=== PATIENT | female | born 1965 | race Caucasian/White ===

== ENCOUNTER 2021-07-13 08:32 | Outpatient (REF) | payer OTHER, SELFPAY ==
--- NOTE | ~2021-07-13 | MM_ITS ---
EXAMINATION: MM DIAGNOSTIC DIGITAL BREAST TOMOSYNTHESIS, BILATERAL US DIAGNOSTIC ULTRASOUND BREAST, RIGHT CLINICAL INFORMATION: Due for yearly. At time of appointment, patient notes palpable abnormality near right inferior medial inframammary fold, increasing over past year. No erythema or discharge. Prior outside breast imaging currently unavailable. No known family history breast cancer. The lifetime risk of breast cancer based on the Tyrer-Cuzick Model is 5%. COMPARISON: None. Radiology department staff will attempt to retrieve prior outside exams to allow for comparison in an addendum report. TECHNIQUE: Digital breast tomosynthesis is performed in both the craniocaudal and mediolateral oblique views along with computer-aided detection (CAD). Synthesized 2D images are generated from the tomosynthesis. Ultrasound right breast is targeted to the area of clinical concern posterior inferior medial right breast near inframammary fold. Grayscale imaging and color Doppler are performed without and with harmonics. Patient is able to point to area of clinical concern at time of imaging. FINDINGS: There are scattered areas of fibroglandular density (ACR BI-RADS breast composition Category b). Right breast has a superficial circumscribed 1.2 cm mass posterior inferior medial aspect corresponding to the palpable lesion noted by the patient. No associated calcification or spiculation. The remainder the breasts are unremarkable. There is no other significant mass or architectural abnormality. There are scattered bilateral benign vascular calcifications. The axilla and skin contours are unremarkable. Ultrasound right breast demonstrates a hypoechoic oval circumscribed mass posterior inferior medial breast near inframammary fold with overall dimensions 1.3 x 0.9 x 1.3 cm. The lesion contacts the deep dermis. There is a small claw sign suggested and questionable short intradermal stalk. There is no peripheral or internal color flow. No surrounding hyperemia. No edema tracking in soft tissue planes. Results are discussed with the patient at time of visit. The palpable nodule most likely corresponds to a sebaceous cyst. Ultrasound-guided core biopsy may produce reactive parenchymal inflammatory changes if leaking contents post sampling. Therefore, surgical consult is suggested for simple excision. Patient is in agreement. Results and recommendation called to medical nurse (Gladis) for Dr. Kern on 07/13/2021. MM/MM tomosynthesis diagnostic BI IMPRESSION: 1. Right: Probable sebaceous cyst posterior inferior medial right breast 1.3 cm corresponding to palpable concern. 2. Left: No mammographic evidence of malignancy. ASSESSMENT: BI-RADS 4: Suspicious (subcategory 4A: Low suspicion for malignancy) RECOMMENDATION: 1. Surgical consult. 2. Radiology department staff will attempt to retrieve prior outside mammography to allow for comparison in an addendum report. This patient's information was entered into a reminder system with a target due date for their next mammogram.
== END 2021-07-13 08:33 | disposition home or self-care (01) ==
LOC: HO.MAMMO 08:32
PROVIDERS: PCP Student in an Organized Health Care Education/Training Program; Visit Provider Student in an Organized Health Care Education/Training Program
DX: N63.14 Unspecified lump in the right breast, lower inner quadrant (principal)
CPT/HCPCS: 76642; 77062; 77066

== ENCOUNTER 2021-08-02 13:47 | Outpatient (REF) | payer OTHER, SELFPAY ==
--- NOTE | ~2021-08-02 | XR_ITS ---
EXAMINATION: XR CERVICAL SPINE CLINICAL INFORMATION: Neck pain. COMPARISON: None. TECHNIQUE: 3 views of the cervical spine were obtained. FINDINGS: There is mild straightening of the cervical lordosis. The vertebral heights, alignment and disc heights are normal. No visible acute fracture, dislocation or lytic process seen. There is mild ventral spondylosis C6-C7 disc levels. The craniovertebral junction and the C1-C2 alignment is normal. XR/XR cervical spine 3V IMPRESSION: Mild straightening of the cervical lordosis. No visible acute fracture or dislocation seen. There is mild ventral spondylosis C6-C7 disc level.
== END 2021-08-02 13:48 | disposition home or self-care (01) ==
LOC: HO.XRAY 13:47
PROVIDERS: PCP Student in an Organized Health Care Education/Training Program; Visit Provider Student in an Organized Health Care Education/Training Program
DX: M54.2 Cervicalgia (principal); L72.0 Epidermal cyst
CPT/HCPCS: 72040

== ENCOUNTER 2021-08-24 07:42 | Outpatient (REF) | payer OTHER, SELFPAY ==
[2021-08-24 07:50] VITALS: BP 158/81; PULSE 100; RESP 16; TEMP 36.8; O2SAT 99
[2021-08-24 07:51] VITALS: BMI 24.9
[2021-08-24 08:18] VITALS: BP 154/84; PULSE 100; RESP 16; O2SAT 100
--- NOTE | 2021-08-24 08:34 | P.OP_ITS ---
Operative Note Operative Note Date of Service: 08/24/21 Narrative: Preop diagnosis: Epidermal cyst, right breast Postop diagnosis: The same Procedure: Excision of epidermal cyst, right breast under local anesthesia Surgeon: Armando Berger MD The patient is a 56-year-old female who has had a cystic induration on the lower area with occasional swelling and pain. She wanted this removed. She understood the technique of excision under local anesthesia and was aware of the risks, benefits, and alternatives She was brought to the minor procedure room and placed supine. The breast was retracted cephalad exposed the area of the cyst which was in the inferior aspect of the breast. This area was prepped and draped. Lidocaine 1% was used for local anesthesia. I made an elliptical incision on the skin around the cystic induration using a blade 15 and this was carried down through the full-thickness of the skin subcutaneous fat to excise this entire indurated area. The diameter was about 1.5 cm. This was sent as specimen. I closed the incision with full- thickness nylon 3-0 interrupted sutures. Dressings were applied. The procedure was then completed. The patient tolerated procedure well. There were no complication noted. She was given wound care instructions and will be seen in the office for removal sutures.
== END 2021-08-24 07:43 | disposition home or self-care (01) ==
LOC: HO.MS 07:42
PROVIDERS: PCP Student in an Organized Health Care Education/Training Program; Visit Provider Surgery
PROC: (CPT 11402; principal; 2021-08-24 08:00)
DX: L72.0 Epidermal cyst (principal); N64.4 Mastodynia; R22.2 Localized swelling, mass and lump, trunk; N64.51 Induration of breast
CPT/HCPCS: 11402; 88304

== ENCOUNTER → 2021-09-07 10:51 | Outpatient (BNVA) | payer OTHER, SELFPAY | PROVIDERS: PCP Student in an Organized Health Care Education/Training Program; Referring Provider Student in an Organized Health Care Education/Training Program; Visit Provider Surgery ==

== ENCOUNTER 2021-10-17 15:25 | Outpatient (REF) | payer OTHER, SELFPAY ==
--- NOTE | ~2021-10-17 | US_ITS ---
EXAMINATION: US RETROPERITONEAL LIMITED (RENAL ONLY) CLINICAL INFORMATION: CKD. Diabetes. COMPARISON: None TECHNIQUE: Real-time imaging of the kidneys. FINDINGS: RIGHT KIDNEY: 10.6 x 5.1 x 6.3 cm (SAG x AP x TRV). The kidney is normal in size, contour, and echogenicity. Renal cortical thickness is normal. No calculi or focal parenchymal lesions. No hydronephrosis. LEFT KIDNEY: 11.5 x 5.4 x 4.9 cm (SAG x AP x TRV). The kidney is normal in size, contour, and echogenicity. Renal cortical thickness is normal. No calculi or focal parenchymal lesions. No hydronephrosis. US/US renal BI IMPRESSION: Unremarkable renal ultrasound.
== END 2021-10-17 15:26 | disposition home or self-care (01) ==
LOC: HO.HMGCX 15:25
PROVIDERS: PCP Student in an Organized Health Care Education/Training Program; Visit Provider Internal Medicine Hypertension Specialist
DX: E11.22 Type 2 diabetes mellitus with diabetic chronic kidney disease (principal); N18.9 Chronic kidney disease, unspecified
CPT/HCPCS: 76775

== ENCOUNTER → 2022-02-23 07:19 | Outpatient (REF) | payer OTHER, SELFPAY ==
--- NOTE | 2022-02-23 07:23 | CA_ITS ---
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 There is mildly increased left ventricular wall thickness. The left ventricular systolic function is hyperdynamic. The visually estimated ejection fraction is >70%. - There is moderate septal asymmetric hypertrophy. - Normal right ventricular cavity size and systolic function. - The inferior vena cava is collapsed, consistent with reduced intravascular volume. Findings Left Ventricle Normal left ventricular cavity size. There is mildly increased left ventricular wall thickness. The left ventricular systolic function is hyperdynamic. The visually estimated ejection fraction is >70%. There is no evidence of regional wall motion abnormalities. There is dynamic mid left ventricular obstruction. Abnormal diastolic function is noted. Spectral Doppler is indicative of an impaired relaxation filling pattern. E/E prime ratio is between 8 and 15 consistent with indeterminate filling pressures. There is moderate septal asymmetric hypertrophy. Right Ventricle Normal right ventricular cavity size and systolic function. Atria Both atria are normal in size. Aortic Valve Normal aortic valve structure and function. There is no aortic valve stenosis. There is no aortic valve regurgitation. Mitral Valve Normal mitral valve structure and function. There is no mitral valve regurgitation. There is no mitral valve stenosis. Pulmonic Valve Normal pulmonic valve structure and function. Tricuspid Valve Normal tricuspid valve structure and function. There is no tricuspid valve regurgitation. Low right atrial pressure. There is no evidence of pulmonary hypertension. Great Vessels All visible segments of the aorta are normal in size. The visualized portions of the pulmonary artery and branches are normal. Venous The inferior vena cava is collapsed, consistent with reduced intravascular volume. Pericardium/Pleural There is no evidence of pericardial effusion. Prior Study Comparison No prior study available for comparison. Measurements 2D Linear Measurements IVSd: 1.31 0.6-0.9/0.6-1.0 cm LVIDd: 3.46 3.9-5.3/4.2-5.9 cm LVIDd Index: 2.07 2.4-3.2/2.2-3.1 cm/m2 LVIDs: 2.16 2.0-3.6 cm LVPWd: 1.10 0.7-1.1 cm LA Diam: 3.00 2.7-3.8/3.0-4.0 cm LAIDs Index: 1.80 1.5-2.3 cm/m2 LV Mass: 167.27 67-162/88-224 g LV Mass Index: 100.16 43-95/49-115 g/m2 LVOT Diam: 1.90 3.0+(-)1.3 cm 2D Systolic Function EF 4C: 64.10 >55% EF 2C: 62.90 >55% EF BiP: 63.30 >55% Mitral Valve MV Pk E: 0.69 MV PK A: 1.02 MV Decel Time: 187.00 E/A: 0.70 E'Lateral: 7.18 E'Medial: 5.33 E/E' Med: 12.90 E/E' Lat: 9.60 PHT: 55.00 MVA PHT: 4.00 Decel [place]: 3.69 Aortic Valve AoV Pk Bay: 1.84 AoV Mn Bay: 1.33 AoV VTI: 0.39 AoV Pk Grad: 14.00 Aov Mn Grad: 8.00 ROGER Cont.VTI: 2.06 LVOT LVOT Pk Bay: 1.20 LVOT Mn Bay: 0.79 LVOT VTI: 0.28 LVOT Pk Grad: 6.00 LVOT Mn Grad: 3.00 LVOT Diam: 1.90 LVOT Area: 2.84 Diastolic Function MV Pk E: 0.69 MV Pk A: 1.02 E/A: 0.70 E'Medial: 5.33 E/E' Med: 12.90 E' Laterial: 7.18 E/E' Lat: 9.60 Right Ventricle TAPSE (mm): 20.00 TVS' Bay: 13.20 Tricuspid Valve TR Pk Bay: 2.12 TR Pk Grad: 18.00 RA Press: 3.00 RVSP: 21.00 Great Vessels Aorta Sinus of Valsalva: 2.94 2.0-3.[address] [place]: 2.21 1.7-3.4 cm Ao Asc: 2.80 2.1-3.4 cm Updated in Other Vendor System with Status of Final Kirby Coronado MD electronically signed on 02/25/2022 12:26:22 PM with status of Final
== END ==
LOC: HO.CARD 07:19
PROVIDERS: PCP Student in an Organized Health Care Education/Training Program; Visit Provider Pediatrics
DX: R07.89 Other chest pain (principal); I10 Essential (primary) hypertension; E11.9 Type 2 diabetes mellitus without complications
CPT/HCPCS: 93306

== ENCOUNTER → 2022-04-05 10:08 | Outpatient (BNVA) | payer OTHER, SELFPAY | PROVIDERS: PCP Student in an Organized Health Care Education/Training Program; Visit Provider Surgery | DX: M62.08 Separation of muscle (nontraumatic), other site (principal) ==

== ENCOUNTER 2023-03-18 10:37 | Outpatient (REF) | payer OTHER, SELFPAY ==
--- NOTE | ~2023-03-18 | MM_ITS ---
EXAMINATION: MM DIAGNOSTIC DIGITAL BREAST TOMOSYNTHESIS, BILATERAL US DIAGNOSTIC ULTRASOUND BREAST, LEFT CLINICAL INFORMATION: Due for yearly. Recent palpable fullness high left axilla during bout of flu, subsequently resolved. Subsequent excision 08/24/2021 benign lesion posterior medial right breast (epidermal inclusion cyst). The lifetime risk of breast cancer based on the Tyrer-Cuzick Model is 7%. COMPARISON: Mammography: 07/13/2021; outside mammography 11/28 and 08/03/2017 ([place]); targeted right breast ultrasound 07/13/2021. TECHNIQUE: Digital breast tomosynthesis is performed in both the craniocaudal and mediolateral oblique views along with computer-aided detection (CAD). Synthesized 2D images are generated from the tomosynthesis. Ultrasound left axilla raises performed using grayscale imaging and color Doppler without and with harmonics. Patient is able to point to the area of recent and subsequently resolved palpable concern. FINDINGS: There are scattered areas of fibroglandular density (ACR BI-RADS breast composition Category b). There are no significant masses, abnormal calcifications, or other abnormalities. Parenchymal pattern is similar to prior studies. There is no developing density or architectural abnormality. The circumscribed nodule posterior medial inferior right breast is no longer demonstrated consistent with the excision (epidermal inclusion cyst, 08/24/2021). The axilla are unremarkable. No skin thickening or coarsening of the Jose Antonio's ligaments. No significant changes. Ultrasound left axilla demonstrates no cystic or solid mass or architectural abnormality. No lymphadenopathy. No skin thickening or edema tracking in soft tissue planes. No hyperemia. Results are discussed with the patient at time of visit. There is no remaining palpable concern. Patient may return for routine annual screening mammography in one year, or earlier as clinical risk factors warrant. MM/MM tomosynthesis diagnostic BI IMPRESSION: No mammographic evidence of malignancy. ASSESSMENT: BI-RADS 1: Negative RECOMMENDATION: Routine annual mammography screening. This patient's information was entered into a reminder system with a target due date for their next mammogram.
== END 2023-03-18 10:38 | disposition home or self-care (01) ==
LOC: HO.MAMMO 10:37
PROVIDERS: PCP Student in an Organized Health Care Education/Training Program; Visit Provider Family Medicine
DX: R59.0 Localized enlarged lymph nodes (principal)
CPT/HCPCS: 76642; 77062; 77066

== ENCOUNTER 2023-07-03 08:45 | Outpatient (REF) | payer OTHER, SELFPAY ==
[2023-07-03 14:36] LABS: MANUAL DIFF FLAG NO
[2023-07-03 14:38] LABS: Basophils Percent Auto 0.4 % (0-2); Eosinophils Absolute Auto 0.2 X10*3/uL (0.0-0.4); Hematocrit 28.7 % (37.0-47.0); Hemoglobin 9.8 g/dl (12.0-16.0); Imm Gran Abs Auto 0.03 X10*3/uL (0.00-0.03); Imm Gran Pct Auto 0.4 % (0.0-0.4); Lymphocytes Absolute Auto 2.6 X10*3/uL (1.2-4.9); Lymphocytes Percent Auto 34.9 % (20-40); Mean Corpuscular HGB Conc 34.1 g/dl (31.0-35.0); Mean Corpuscular Hemoglobin 27.3 pg (27.0-33.0); Mean Corpuscular Volume 79.9 fL (80.0-98.0); Mean Platelet Volume 10.1 fL (9.4-12.3); Monocytes Absolute Auto 0.3 X10*3/uL (0.1-1.2); Monocytes Percent Auto 4.5 % (2-11); Neutrophils Absolute Auto 4.2 x10*3/uL (2.0-8.3); Neutrophils Percent Auto 56.8 % (45-73); Platelet Count 242 X10*3/uL (160-400); Red Blood Count 3.59 X10*6/uL (4.20-5.50); Red Cell Distribution Width 14.1 % (11.0-16.0); White Blood Count 7.3 X10*3/uL (4.8-10.8)
[2023-07-03 15:14] LABS: Anion Gap 13 (12-20); Blood Urea Nitrogen 50 mg/dL (9-16); Calcium 10.7 mg/dL (8.4-10.2); Carbon Dioxide 25 mmol/L (22-29); Chloride 106 mmol/L (96-108); Estimated Glomerular Filt Rate 30; Glucose Random 207 mg/dL (60-115); Iron 92 mcg/dL (30-160); Percent Iron Saturation 26 % (15-50); Potassium 5.7 mmol/L (3.3-5.1); Sodium 138 mmol/L (135-145); Total Iron Binding Capacity 349 mcg/dL (228-428); Unsaturated Iron Binding 257 ug/dL
[2023-07-03 15:29] LABS: Ferritin 365 ng/mL (10-250)
[2023-07-03 16:07] LABS: Creatinine Urine 77.94 mg/dL; Protein/Creatinine Ratio, Ur 0.35 (<0.2); Total Protein Urine Random 27 mg/dL (<12)
[2023-07-04 10:48] LABS: PTHI 39 pg/mL (16-77)
== END 2023-07-03 08:46 | disposition home or self-care (01) ==
LOC: HO.CHCLDS 08:45
PROVIDERS: Visit Provider Internal Medicine Hypertension Specialist
DX: E11.22 Type 2 diabetes mellitus with diabetic chronic kidney disease (principal); N18.32 Chronic kidney disease, stage 3b
CPT/HCPCS: 36415; 80048; 82728; 83540; 83970; 84156; 85025

== ENCOUNTER 2023-10-16 09:41 | Outpatient (REF) | payer OTHER, SELFPAY ==
[2023-10-16 14:51] LABS: Alanine Aminotransferase 31 U/L (0-31); Albumin Level 4.2 g/dL (3.5-5.0); Alkaline Phosphatase 117 U/L (39-117); Anion Gap 13 (12-20); Aspartate Amino Transferase 32 U/L (5-31); Bilirubin Direct 0.2 mg/dL (0.0-0.5); Bilirubin Total 0.4 mg/dL (0.0-1.0); Blood Urea Nitrogen 53 mg/dL (9-16); Calcium 9.9 mg/dL (8.4-10.2); Carbon Dioxide 26 mmol/L (22-29); Chloride 101 mmol/L (96-108); Cholesterol 183 mg/dL (<200); Estimated Glomerular Filt Rate 22; Glucose Random 356 mg/dL (60-115); HDL Cholesterol 41 mg/dL (>40); LDL Cholesterol Calculated 83 mg/dL (<100); Potassium 4.9 mmol/L (3.3-5.1); Sodium 135 mmol/L (135-145); Total Protein 7.7 g/dL (6.5-8.0); Triglycerides 297 mg/dL (<150)
== END 2023-10-16 09:42 | disposition home or self-care (01) ==
LOC: HO.CHCLDS 09:41
PROVIDERS: Visit Provider Student in an Organized Health Care Education/Training Program
DX: E11.9 Type 2 diabetes mellitus without complications (principal); Z79.4 Long term (current) use of insulin
CPT/HCPCS: 36415; 80048; 80061; 80076

== ENCOUNTER 2023-12-03 16:28 | Outpatient (AMB) | payer OTHER, SELFPAY ==
[2023-12-03 16:30] VITALS: BP 138/62; PULSE 89; O2SAT 99; BMI 24.9
--- NOTE | 2023-12-03 16:30 | HO.NEPHOV ---
HPI HPI Comments History of Present Illness Details 58-year-old woman with a history of CKD in a setting of diabetes mellitus. Started on Farxiga A1C down to 9.3% PFSH Medical History Epidermal cyst Diabetes mellitus Surgical History History of removal of cyst H/O section Family History Family/Other Cancer of unknown origin Paternal Aunt Colon cancer Paternal Aunt Colon cancer Father Liver cancer Social History Alcohol intake: never Patient Tobacco Use Status: Never used Tobacco Vital Signs 12/03/23 16:30 Height 5 ft 4 in Weight 145 lb BMI 24.9 BP 138/62 Blood Pressure Location Rt brachial Position Sitting Pulse 89 Pulse Source Pulse Oximeter Pulse Oximetry (%) 99 Oxygen Delivery Method Room Air Physical Exam Vital Signs: Last Vital Signs Pulse 89 12/03/23 16:30 BP 138/62 12/03/23 16:30 Pulse Ox 99 12/03/23 16:30 Oxygen Delivery Method Room Air 12/03/23 16:30 BMI result Body Mass Index 24.9 Const General: comfortable; No acute distress Orientation/consciousness: patient oriented x3 Eyes General: appearance normal, both eyes and all related structures Visual Valdez: normal visual valdez by confrontation Neck Neck: Yes supple and Yes no JVD Resp Effort & Inspection: normal respiratory effort and respiratory effort not decreased Auscultation: rhonchi Cardio Palpation: no palpable S3 and no palpable S4 Heart sounds: no rubs GI Inspection: Yes normal to inspection Palpation (GI): Soft to palpation Percussion: Yes normal to percussion Auscultation: normal bowel sounds General: Yes no CVA tenderness Back/Spine/Pelvis Back: no CVA tenderness Skin General skin exam: no petechiae and no purpura Neuro General: patient oriented x3 and no focal motor deficits Extrem General: No clubbing and No edema Assessment & Plan Assessment & Plan (1) CKD (chronic kidney disease) stage 4, GFR 15-29 ml/min: Code(s): N18.4 - Chronic kidney disease, stage 4 (severe) Plan 58-year-old man with CKD in a setting of longstanding diabetes mellitus. There has been a bump in serum creatinine. This may be due to hypoperfusion. Decrease Chlorthalidone to 12.5 Goal is to slow the portion disease Recheck renal function in the next few weeks and she will return to the office. If the serum creatinine still elevated we may have to discontinue the diuretics. Continue to avoid nephrotoxic agents including NSAIDs Further workup will be based on the baseline workup. Orders: Orders Electrolytes 4 Weeks N18.4 - Chronic kidney disease, stage 4 (severe) Creatinine 4 Weeks N18.4 - Chronic kidney disease, stage 4 (severe) Blood Urea Nitrogen 4 Weeks N18.4 - Chronic kidney disease, stage 4 (severe) Calcium 4 Weeks N18.4 - Chronic kidney disease, stage 4 (severe) Coding Level of Care Code Est Pt Level 4 (88667) Diagnoses CKD (chronic kidney disease) stage 4, GFR 15-29 ml/min N18.4 Results Reviewed Nephrology Results: Hgb 9.8 g/dl (12.0-16.0) L 07/03/23 WBC 7.3 X10*3/uL (4.8-10.8) 07/03/23 Plt Count 242 X10*3/uL (160-400) 07/03/23 Sodium 135 mmol/L (135-145) 10/16/23 Potassium 4.9 mmol/L (3.3-5.1) 10/16/23 Chloride 101 mmol/L (96-108) 10/16/23 Carbon Dioxide 26 mmol/L (22-29) 10/16/23 BUN 53 mg/dL (9-16) H 10/16/23 Creatinine 2.24 mg/dL (0.5-1.4) H 10/16/23 Calcium 9.9 mg/dL (8.4-10.2) 10/16/23 PTH Intact 39 pg/mL (16-77) 07/03/23 Urine Creatinine 77.94 mg/dL 07/03/23 Protein/Creatinin Ratio 0.35 (<0.2) H 07/03/23 Renal US 10/17/21
== END 2023-12-03 16:49 | disposition home or self-care (01) ==
PROVIDERS: PCP Student in an Organized Health Care Education/Training Program; Visit Provider Internal Medicine Hypertension Specialist
DX: N18.4 Chronic kidney disease, stage 4 (severe) (principal)
CPT/HCPCS: 99214

== ENCOUNTER → 2023-12-03 16:28 | Outpatient (BNVA) | payer OTHER, SELFPAY | PROVIDERS: PCP Student in an Organized Health Care Education/Training Program; Visit Provider Internal Medicine Hypertension Specialist ==

== ENCOUNTER 2024-01-15 08:43 | Outpatient (REF) | payer OTHER, SELFPAY ==
[2024-01-15 14:57] LABS: Estimated Average Glucose 160 mg/dL; Hemoglobin A1c % 7.2 % (<6.0)
[2024-01-15 15:32] LABS: Anion Gap 15 (12-20); Blood Urea Nitrogen 42 mg/dL (9-16); Calcium 9.8 mg/dL (8.4-10.2); Carbon Dioxide 25 mmol/L (22-29); Chloride 105 mmol/L (96-108); Estimated Glomerular Filt Rate 28; Potassium 4.7 mmol/L (3.3-5.1); Sodium 140 mmol/L (135-145)
[2024-01-15 15:41] LABS: Anion Gap 16 (12-20); Blood Urea Nitrogen 42 mg/dL (9-16); Calcium 10.1 mg/dL (8.4-10.2); Carbon Dioxide 25 mmol/L (22-29); Chloride 105 mmol/L (96-108); Estimated Glomerular Filt Rate 27; Glucose Random 120 mg/dL (60-115); Sodium 141 mmol/L (135-145)
== END 2024-01-15 08:44 | disposition home or self-care (01) ==
LOC: HO.CHCLDS 08:43
PROVIDERS: Internal Medicine Hypertension Specialist; Visit Provider Student in an Organized Health Care Education/Training Program
DX: E11.9 Type 2 diabetes mellitus without complications (principal); N18.4 Chronic kidney disease, stage 4 (severe); Z79.4 Long term (current) use of insulin
CPT/HCPCS: 36415; 80048; 80051; 82310; 82565; 83036; 84520

== ENCOUNTER 2024-02-04 16:22 | Outpatient (AMB) | payer OTHER, SELFPAY ==
[2024-02-04 16:25] VITALS: BP 154/70; PULSE 106; O2SAT 99; BMI 24.5
--- NOTE | 2024-02-04 16:25 | HO.NEPHOV ---
HPI HPI Comments History of Present Illness Details 58-year-old woman with a history of CKD in a setting of diabetes mellitus. Tolerating Farxiga A1C down to 9.3% No new issues today PFSH Medical History Epidermal cyst Diabetes mellitus Surgical History History of removal of cyst H/O section Family History Family/Other Cancer of unknown origin Paternal Aunt Colon cancer Paternal Aunt Colon cancer Father Liver cancer Social History Alcohol intake: never Patient Tobacco Use Status: Never used Tobacco Vital Signs 02/04/24 16:25 02/04/24 16:33 Height 5 ft 4 in Weight 143 lb BMI 24.5 BP 154/70 H 138/60 Blood Pressure Location Rt brachial Rt brachial Position Sitting Sitting Pulse 106 H Pulse Source Pulse Oximeter Pulse Oximetry (%) 99 Oxygen Delivery Method Room Air Physical Exam Vital Signs: Last Vital Signs Pulse 106 H 02/04/24 16:25 BP 138/60 02/04/24 16:33 Pulse Ox 99 02/04/24 16:25 Oxygen Delivery Method Room Air 02/04/24 16:25 BMI result Body Mass Index 24.5 Const General: comfortable; No acute distress Orientation/consciousness: patient oriented x3 Eyes General: appearance normal, both eyes and all related structures Visual Valdez: normal visual valdez by confrontation Neck Neck: Yes supple and Yes no JVD Resp Effort & Inspection: normal respiratory effort and respiratory effort not decreased Auscultation: rhonchi Cardio Palpation: no palpable S3 and no palpable S4 Heart sounds: no rubs GI Inspection: Yes normal to inspection Palpation (GI): Soft to palpation Percussion: Yes normal to percussion Auscultation: normal bowel sounds General: Yes no CVA tenderness Back/Spine/Pelvis Back: no CVA tenderness Skin General skin exam: no petechiae and no purpura Neuro General: patient oriented x3 and no focal motor deficits Extrem General: No clubbing and No edema Assessment & Plan Assessment & Plan (1) CKD (chronic kidney disease) stage 4, GFR 15-29 ml/min: Code(s): N18.4 - Chronic kidney disease, stage 4 (severe) Plan 58-year-old man with CKD in a setting of longstanding diabetes mellitus. There has been a bump in serum creatinine. This may be due to hypoperfusion. Creatinine improved after lowering chlorthalidone Keep Chlorthalidone 12.5 Goal is to slow the portion disease Continue to avoid nephrotoxic agents including NSAIDs Orders: Orders Basic Metabolic Panel 4 Months N18.4 - Chronic kidney disease, stage 4 (severe) Creatinine Urine 4 Months N05.9 - Unspecified nephritic syndrome with unspecified morphologic changes, N18.4 - Chronic kidney disease, stage 4 (severe) Complete Blood Count Auto Diff 4 Months N18.30 - Chronic kidney disease, stage 3 unspecified, N18.4 - Chronic kidney disease, stage 4 (severe) Total Protein Urine Random 4 Months N18.4 - Chronic kidney disease, stage 4 (severe) Parathyroid Hormone Intact 4 Months N18.4 - Chronic kidney disease, stage 4 (severe) Coding Level of Care Code Est Pt Level 4 (81312) Diagnoses CKD (chronic kidney disease) stage 4, GFR 15-29 ml/min N18.4 Results Reviewed Nephrology Results: Hgb 9.8 g/dl (12.0-16.0) L 07/03/23 WBC 7.3 X10*3/uL (4.8-10.8) 07/03/23 Plt Count 242 X10*3/uL (160-400) 07/03/23 Sodium 140 mmol/L (135-145) 01/15/24 Potassium 4.7 mmol/L (3.3-5.1) 01/15/24 Chloride 105 mmol/L (96-108) 01/15/24 Carbon Dioxide 25 mmol/L (22-29) 01/15/24 BUN 42 mg/dL (9-16) H 01/15/24 Creatinine 1.85 mg/dL (0.5-1.4) H 01/15/24 Calcium 9.8 mg/dL (8.4-10.2) 01/15/24 PTH Intact 39 pg/mL (16-77) 07/03/23 Urine Creatinine 77.94 mg/dL 07/03/23 Protein/Creatinin Ratio 0.35 (<0.2) H 07/03/23 Renal US 10/17/21
[2024-02-04 16:33] VITALS: BP 138/60
== END 2024-02-04 16:36 | disposition home or self-care (01) ==
PROVIDERS: PCP Student in an Organized Health Care Education/Training Program; Visit Provider Internal Medicine Hypertension Specialist
DX: N18.4 Chronic kidney disease, stage 4 (severe) (principal)
CPT/HCPCS: 99214

== ENCOUNTER → 2024-02-04 16:22 | Outpatient (BNVA) | payer OTHER, SELFPAY | PROVIDERS: PCP Student in an Organized Health Care Education/Training Program; Visit Provider Internal Medicine Hypertension Specialist | DX: N18.4 Chronic kidney disease, stage 4 (severe) (principal) ==

== ENCOUNTER 2024-03-21 08:16 | Outpatient (REF) | payer OTHER, SELFPAY | END 2024-03-21 08:17 | disposition home or self-care (01) | LOC: HO.MAMMO 08:16 | PROVIDERS: PCP Student in an Organized Health Care Education/Training Program; Visit Provider Student in an Organized Health Care Education/Training Program | DX: Z12.31 Encounter for screening mammogram for malignant neoplasm of breast (principal) | CPT/HCPCS: 77063; 77067 ==

== ENCOUNTER → 2024-03-21 08:30 | Outpatient (BNV) | payer OTHER, SELFPAY | PROVIDERS: PCP Student in an Organized Health Care Education/Training Program; Visit Provider Radiology Diagnostic Radiology | DX: Z12.31 Encounter for screening mammogram for malignant neoplasm of breast (principal) | CPT/HCPCS: 77063; 77067 ==

== ENCOUNTER 2024-06-01 16:21 | Outpatient (AMB) | payer OTHER, SELFPAY ==
--- NOTE | 2024-06-01 16:26 | HO.NEPHOV_ITS ---
Vital Signs 06/01/24 16:27 06/01/24 16:36 Height 5 ft 4 in Weight 141 lb BMI 24.2 BP 148/64 H 140/70 H Blood Pressure Location Rt brachial Rt brachial Position Sitting Sitting Pulse 104 H Pulse Source Pulse Oximeter Pulse Oximetry (%) 98 Oxygen Delivery Method Room Air Intake Visit Reasons: May FU/Conf Assessment Analyst Required: No Accompanied by: Spouse Allergies lisinopril Allergy (Severe, Verified 06/01/24 16:30) Hives, itchiness shellfish derived [SHELLFISH DERIVED] Allergy (Unknown, Verified 06/01/24 16:30) HIVES HPI Comments Details: 58-year-old woman with a history of CKD in a setting of diabetes mellitus. Tolerating Farxiga A1C down to 9.3% Mild gluacoma- s/p dilatation. [facility] Medical History Epidermal cyst Diabetes mellitus Surgical History History of removal of cyst H/O section Family History Family/Other Cancer of unknown origin Paternal Aunt Colon cancer Paternal Aunt Colon cancer Father Liver cancer Social History Alcohol intake: never Patient Tobacco Use Status: Never used Tobacco Physical Exam Vital Signs: Last Vital Signs Pulse 104 H 06/01/24 16:27 BP 140/70 H 06/01/24 16:36 Pulse Ox 98 06/01/24 16:27 Oxygen Delivery Method Room Air 06/01/24 16:27 BMI result Body Mass Index 24.2 Neck Neck: Yes supple Resp Auscultation: clear to auscultation bilaterally Cardio Palpation: no palpable S3 Heart sounds: no rubs GI Palpation (GI): Soft to palpation Auscultation: normal bowel sounds Neuro Motor exam (neuro): no asterixis Results Reviewed Nephrology Results: Hgb 9.8 g/dl (12.0-16.0) L 07/03/23 WBC 7.3 X10*3/uL (4.8-10.8) 07/03/23 Plt Count 242 X10*3/uL (160-400) 07/03/23 Sodium 140 mmol/L (135-145) 01/15/24 Potassium 4.7 mmol/L (3.3-5.1) 01/15/24 Chloride 105 mmol/L (96-108) 01/15/24 Carbon Dioxide 25 mmol/L (22-29) 01/15/24 BUN 42 mg/dL (9-16) H 01/15/24 Creatinine 1.85 mg/dL (0.5-1.4) H 01/15/24 Calcium 9.8 mg/dL (8.4-10.2) 01/15/24 PTH Intact 39 pg/mL (16-77) 07/03/23 Urine Creatinine 77.94 mg/dL 07/03/23 Protein/Creatinin Ratio 0.35 (<0.2) H 07/03/23 Assessment & Plan Assessment & Plan (1) CKD (chronic kidney disease) stage 4, GFR 15-29 ml/min: Code(s): N18.4 - Chronic kidney disease, stage 4 (severe) Category: Medical Plan 58-year-old man with CKD in a setting of longstanding diabetes mellitus. And hypertension Creatinine improved after lowering chlorthalidone Keep Chlorthalidone 12.5 Goal is to slow the portion disease Continue to avoid nephrotoxic agents including NSAIDs Repeat labs ordered Orders: Orders Complete Blood Count Auto Diff Today N18.4 - Chronic kidney disease, stage 4 (severe) Creatinine Urine Today N18.4 - Chronic kidney disease, stage 4 (severe) Total Protein Urine Random Today N18.4 - Chronic kidney disease, stage 4 (severe) Parathyroid Hormone Intact Today N18.4 - Chronic kidney disease, stage 4 (severe) Comprehensive Met. Panel Today N18.4 - Chronic kidney disease, stage 4 (severe) Coding Level of Care Code Est Pt Level 4 (46362) Diagnoses CKD (chronic kidney disease) stage 4, GFR 15-29 ml/min N18.4
[2024-06-01 16:27] VITALS: BP 148/64; PULSE 104; O2SAT 98; BMI 24.2
[2024-06-01 16:36] VITALS: BP 140/70
== END 2024-06-01 16:39 | disposition home or self-care (01) ==
PROVIDERS: PCP Student in an Organized Health Care Education/Training Program; Visit Provider Internal Medicine Hypertension Specialist
DX: N18.4 Chronic kidney disease, stage 4 (severe) (principal)
CPT/HCPCS: 99214

== ENCOUNTER → 2024-06-01 16:21 | Outpatient (BNVA) | payer OTHER, SELFPAY | PROVIDERS: PCP Student in an Organized Health Care Education/Training Program; Visit Provider Internal Medicine Hypertension Specialist ==

== ENCOUNTER 2024-10-14 13:31 | Outpatient (REF) | payer OTHER, SELFPAY ==
[2024-10-14 15:16] LABS: Influenza A PCR NEGATIVE (Negative); Influenza B PCR NEGATIVE (Negative); Resp Syncy Virus RNA Qual PCR POSITIVE (Negative); SARS COV2 PCR INHOUSE NEGATIVE (Negative)
== END 2024-10-14 13:32 | disposition home or self-care (01) ==
LOC: HO.CHCLNP 13:31
PROVIDERS: Visit Provider Pediatrics
DX: J06.9 Acute upper respiratory infection, unspecified (principal)
CPT/HCPCS: 0241U

== ENCOUNTER 2024-11-26 09:43 | Outpatient (REF) | payer OTHER, SELFPAY ==
[2024-11-26 14:05] LABS: MANUAL DIFF FLAG NO
[2024-11-26 14:13] LABS: Basophils Percent Auto 0.5 % (0-2); Eosinophils Absolute Auto 0.1 X10*3/uL (0.0-0.4); Eosinophils Percent Auto 2.3 % (0-4); Hematocrit 31.2 % (37.0-47.0); Hemoglobin 10.7 g/dl (12.0-16.0); Imm Gran Abs Auto 0.02 X10*3/uL (0.00-0.03); Imm Gran Pct Auto 0.4 % (0.0-0.4); Lymphocytes Percent Auto 35.2 % (20-40); Mean Corpuscular HGB Conc 34.3 g/dl (31.0-35.0); Mean Corpuscular Hemoglobin 27.1 pg (27.0-33.0); Mean Platelet Volume 9.9 fL (9.4-12.3); Monocytes Absolute Auto 0.3 X10*3/uL (0.1-1.2); Monocytes Percent Auto 5.7 % (2-11); Neutrophils Absolute Auto 3.1 x10*3/uL (2.0-8.3); Neutrophils Percent Auto 55.9 % (45-73); Platelet Count 227 X10*3/uL (160-400); Red Blood Count 3.95 X10*6/uL (4.20-5.50); Red Cell Distribution Width 14.7 % (11.0-16.0); White Blood Count 5.6 X10*3/uL (4.8-10.8)
[2024-11-26 14:19] LABS: Alanine Aminotransferase 35 U/L (0-31); Albumin Level 4.2 g/dL (3.5-5.0); Alkaline Phosphatase 81 U/L (39-117); Anion Gap 10 (12-20); Aspartate Amino Transferase 45 U/L (5-31); Bilirubin Direct 0.2 mg/dL (0.0-0.5); Bilirubin Total 0.5 mg/dL (0.0-1.0); Blood Urea Nitrogen 52 mg/dL (9-16); Calcium 9.8 mg/dL (8.4-10.2); Carbon Dioxide 27 mmol/L (22-29); Chloride 109 mmol/L (96-108); Cholesterol 168 mg/dL (<200); Estimated Glomerular Filt Rate 25; Glucose Random 157 mg/dL (60-115); HDL Cholesterol 44 mg/dL (>40); LDL Cholesterol Calculated 83 mg/dL (<100); Potassium 4.7 mmol/L (3.3-5.1); Sodium 141 mmol/L (135-145); Triglycerides 208 mg/dL (<150)
[2024-11-26 14:32] LABS: Creatinine Urine 49.33 mg/dL; Total Protein Urine Random 10 mg/dL (<12)
[2024-11-26 14:38] LABS: Parathyroid Hormone Intact 82.1 pg/mL (8.7-77.1)
== END 2024-11-26 09:44 | disposition home or self-care (01) ==
LOC: HO.CHCLDS 09:43
PROVIDERS: PCP Student in an Organized Health Care Education/Training Program; Referring Provider Internal Medicine Hypertension Specialist; Visit Provider Student in an Organized Health Care Education/Training Program
DX: N18.4 Chronic kidney disease, stage 4 (severe) (principal); N05.9 Unspecified nephritic syndrome with unspecified morphologic changes; I10 Essential (primary) hypertension
CPT/HCPCS: 36415; 80053; 80061; 82248; 82570; 83970; 84156; 85025

== ENCOUNTER → 2024-11-27 07:44 | Outpatient (REF) | payer OTHER, SELFPAY ==
--- NOTE | 2024-11-27 07:49 | CA_ITS ---
Acquisition Time: 2024-11-27 08:00:04 Total Exercise Time: 00:05:00 Test Indications: CP Medications: SEE H&P Protocol: CHUY Max HR: 148 BPM 91% of Pred: 161 BPM Max BP: 218/60 mmHG Max Work Load: 4.8 METS Exercise Stress Test with exercise 5 mins of Chuy Protocol, held at Stage 1 due to hip issues, able to increase incline to 12% for the last 1 minute, achieving 91% MPHR, with reports of moderate SOB, no chest discomfort, without any arrythmias, with hypertensive response- max BP 218/60. Without EKG changes meeting criteria for ischemia. In recovery, breathing returned to baseline. BP back at 118/60. Test reviewed with Dr. Coronado. Referred By: Faith Kern Electronically Signed By: Ellis Pope
== END ==
LOC: HO.CARD 07:44
PROVIDERS: PCP Student in an Organized Health Care Education/Training Program; Visit Provider Student in an Organized Health Care Education/Training Program
DX: R07.89 Other chest pain (principal)
CPT/HCPCS: 93017

== ENCOUNTER → 2024-11-27 07:49 | Outpatient (BNV) | payer OTHER, SELFPAY | PROVIDERS: PCP Student in an Organized Health Care Education/Training Program | DX: R06.02 Shortness of breath (principal); R03.0 Elevated blood-pressure reading, without diagnosis of hypertension | CPT/HCPCS: 93016; 93018 ==

== ENCOUNTER 2024-11-30 16:04 | Outpatient (AMB) | payer OTHER, SELFPAY ==
--- NOTE | 2024-11-30 16:05 | HO.NEPHOV ---
Vital Signs 11/30/24 16:06 Height 5 ft 4 in Weight 148 lb BMI 25.4 BP 122/68 Blood Pressure Location Rt brachial Position Sitting Pulse 96 Pulse Source Pulse Oximeter Pulse Oximetry (%) 99 Oxygen Delivery Method Room Air Intake Visit Reasons: CKD/ Late appt per pt request Vine Fruit Farming Supervisor Required: No Accompanied by: Self / Same As Patient Allergies lisinopril Allergy (Severe, Verified 11/30/24 16:08) Hives, itchiness shellfish derived [SHELLFISH DERIVED] Allergy (Unknown, Verified 11/30/24 16:08) HIVES Medication List - Last Reconciled 11/30/24 by Paco Burnham MD amlodipine 10 mg PO DAILY aspirin 81 mg PO DAILY atorvastatin 40 mg PO DAILY blood sugar diagnostic (FreeStyle Lite Strips) As directed chlorthalidone 12.5 mg (1/2 x 25 mg) PO DAILY clonidine HCl 0.1 mg PO BID dapagliflozin propanediol (Farxiga) 5 mg PO QAM dorzolamide 2% 1 drp ophthalmic (eye) BID dulaglutide (Trulicity) mg subcut QWEEK fenofibrate nanocrystallized 145 mg PO DAILY hydroxyzine HCl 25 - 50 mg PO DAILY PRN insulin glargine (Lantus Solostar U-100 Insulin) 26 units subcut BEDTIME lancets (TRUEplus Lancets) As directed latanoprost 0.005% 1 drp ophthalmic (eye) BEDTIME valsartan 80 mg PO DAILY HPI Comments Details: 58-year-old woman with a history of CKD in a setting of diabetes mellitus. Tolerating Farxiga A1C down to 9.3% Mild gluacoma- s/p dilatation. 11/30/24 Blood sugar elevated ; Gained 7-8 lbs A1C > 10 Started on Trulicity Underwent stress test- waiting for cardiology appt. [facility] Medical History Epidermal cyst Diabetes mellitus Surgical History History of removal of cyst H/O section Family History Family/Other Cancer of unknown origin Paternal Aunt Colon cancer Paternal Aunt Colon cancer Father Liver cancer Social History Alcohol intake: never Patient Tobacco Use Status: Never used Tobacco Physical Exam Vital Signs: Last Vital Signs Pulse 96 11/30/24 16:06 BP 122/68 11/30/24 16:06 Pulse Ox 99 11/30/24 16:06 Oxygen Delivery Method Room Air 11/30/24 16:06 BMI result Body Mass Index 25.4 Comfortable Neck supple no JVD. Lungs entry equal no rales. Heart S1-S2 heard no gallop or rub. Abdomen soft nontender. Neuro alert awake oriented. No asterixis. Extremities no edema. Results Reviewed Nephrology Results: Hgb 10.7 g/dl (12.0-16.0) L 11/26/24 WBC 5.6 X10*3/uL (4.8-10.8) 11/26/24 Plt Count 227 X10*3/uL (160-400) 11/26/24 Sodium 141 mmol/L (135-145) 11/26/24 Potassium 4.7 mmol/L (3.3-5.1) 11/26/24 Chloride 109 mmol/L (96-108) H 11/26/24 Carbon Dioxide 27 mmol/L (22-29) 11/26/24 BUN 52 mg/dL (9-16) H 11/26/24 Creatinine 2.03 mg/dL (0.5-1.4) H 11/26/24 Calcium 9.8 mg/dL (8.4-10.2) 11/26/24 PTH Intact 82.1 pg/mL (8.7-77.1) H 11/26/24 Urine Creatinine 49.33 mg/dL 11/26/24 Assessment & Plan Assessment & Plan (1) CKD (chronic kidney disease) stage 4, GFR 15-29 ml/min: Code(s): N18.4 - Chronic kidney disease, stage 4 (severe) Category: Medical Plan 58-year-old woman with CKD in a setting of longstanding diabetes mellitus. And hypertension Creatinine close to baseline Keep Chlorthalidone 12.5 Goal is to slow the progression of kidney disease Continue to avoid nephrotoxic agents including NSAIDs Discussed importance of control of glucose BP is well controlled On SGLT-2 inhibitor Mild SHPT No indication for Vit D analog Mild anemia No indication for DANIEL yet Orders: Orders Basic Metabolic Panel 3 Months N18.4 - Chronic kidney disease, stage 4 (severe) Parathyroid Hormone Intact 3 Months N18.4 - Chronic kidney disease, stage 4 (severe) Phosphorus 3 Months N18.4 - Chronic kidney disease, stage 4 (severe) Total Protein Urine Random 3 Months N18.4 - Chronic kidney disease, stage 4 (severe) Creatinine Urine 3 Months N18.4 - Chronic kidney disease, stage 4 (severe) Coding Level of Care Code Est Pt Level 4 (14839) Diagnoses CKD (chronic kidney disease) stage 4, GFR 15-29 ml/min N18.4
[2024-11-30 16:06] VITALS: BP 122/68; PULSE 96; O2SAT 99; BMI 25.4
== END 2024-11-30 16:19 | disposition home or self-care (01) ==
LOC: HO.HKA 16:04
PROVIDERS: PCP Student in an Organized Health Care Education/Training Program; Visit Provider Internal Medicine Hypertension Specialist
DX: I12.9 Hypertensive chronic kidney disease with stage 1 through stage 4 chronic kidney disease, or unspecified chronic kidney disease (principal); E11.22 Type 2 diabetes mellitus with diabetic chronic kidney disease; N18.4 Chronic kidney disease, stage 4 (severe)
CPT/HCPCS: 99214

== ENCOUNTER → 2024-11-30 16:04 | Outpatient (BNVA) | payer OTHER, SELFPAY | PROVIDERS: PCP Student in an Organized Health Care Education/Training Program; Visit Provider Internal Medicine Hypertension Specialist ==

== ENCOUNTER 2025-03-17 08:19 | Outpatient (REF) | payer OTHER, SELFPAY ==
--- OUTSIDE RECORDS SUMMARY | 2025-03-17 08:26 | XMS_ITS | Encounter Summary ---
Author Organization [facility] Address [address] [facility] [address] [place] [address] Phone Care Team Providers Care Cheese Production Supervisor Name Role Phone Faith Kern MD Primary Care Provider [phone] Reason for Visit * Reason Comments Med Refill Encounter Details Date Type Department Care Team (Late st Contact Info) Description 05/02/2024 Refill [facility] [address] [place] [address] Nik Mckeon MD [address] [facility] [address] [place] [address] Social History Tobacco Use Types Packs/Day Years Used Date Smoking Tobacco: Never Smokeless Tobacco: Never Alcohol Use Standard Drinks/Week Comments Not Currently 0 (1 standard drink = 0.6 oz pur e alcohol) Comments Unknown Sex and Gender Information Value Date Recorded Sex Assigned at Not on file Legal Sex Female 11:08 AM EDT Gender Identity Not on file Sexual Orientation Not on file documented as of this encounter Plan of Treatment Not on file documented as of this encounter Visit Diagnoses Not on filedocumented in this encounter Care Teams Cheese Production Supervisor Relationship Specialty Start Date End Date Faith Kern MD [address] [place] [address] PCP - General Family Medicine 07/24/21 documented as of this encounter
--- OUTSIDE RECORDS SUMMARY | 2025-03-17 08:26 | XMS_ITS | Clinical Summary ---
Author Organization [facility] Address [address] [facility] [address] [place] [address] Phone Care Team Providers Care Starch And Prosize Mixer Name Role Phone Faith Kern MD Primary Care Provider [phone] Allergies Active Allergy Reactions Criticality Noted Date Comments Lisinopril Hives 09/25/2021 Shellfish-Derived Products Other (see comments) 09/11/2010 Medications fenofibrate (TRICOR) 145 MG tablet Take 1 tablet by mouth 1 (one) time each day 0 Active chlorthalidone 25 MG tablet Take 12.5 mg by mouth 9 Active levonorgestrel (MIRENA) 20 MCG/24HR IUD 1 each by Intrauterine route Active triamcinolone (KENALOG) 0.1 % cream apply affected area twice a day. 9 Active amLODIPine (NORVASC) 10 MG tablet Take 10 mg by mouth 1 (one) time each day 1 Active Aspirin Low Dose 81 MG EC tablet Take 81 mg by mouth 1 (one) time each day 1 Active atorvastatin (LIPITOR) 40 MG tablet Take 40 mg by mouth 1 (one) time each day 1 Active dorzolamide (TRUSOPT) 2 % ophthalmic solution PLACE ONE DROP IN EACH EYE TWICE DAILY 1 Active hydrOXYzine (ATARAX) 25 MG tablet TAKE 1 OR 2 TABLETS BY MOUTH EVERY DAY NEEDED FOR ANXIETY. 1 Active latanoprost (XALATAN) 0.005 % ophthalmic solution PLACE ONE DROP IN EACH EYE AT BEDTIME 1 Active cetirizine (ZyrTEC) 10 MG tablet Take 10 mg by mouth 1 (one) time each day 3 Active Lantus SoloStar 100 UNIT/ML injection INJECT 16 UNITS SUBCUTANEOUSLY AT BEDTIME 3 Active valsartan (DIOVAN) 80 MG tablet Take 1 tablet (80 mg total) by mouth 1 (one) time each day 30 tablet 11 4 Active cloNIDine (CATAPRES) 0.1 MG tablet TAKE ONE TABLET TWICE DAILY IN THE MORNING AND AT BEDTIME 60 tablet 2 4 Active Active Problems Problem Noted Date Diagnosed Date Acute cough 11/15/2022 07/05/2023 Overview (07/05/2023): Last Assessment & Plan: Likely secondary to acute URI, negative rapid testing. At this moment will rx medication for supportive care and recommend rest. RTC if no improvement of symptoms Disorder of eye due to type 2 diabetes mellitus 2018 Primary open angle glaucoma 05/01/2016 Overview (09/21/2021): Dr. Simms 2016 Presence of intrauterine contraceptive device Overview (09/21/2021): Mirena placed in 2014 Nonproliferative retinopathy due to diabetes lashay litus 01/18/2015 Overview (09/21/2021): Dr. Simms 01/17/15 Diabetes mellitus 02/26/2013 Neuropathy of lower limb 02/26/2013 Helicobacter pylori-associated gastritis 013 Gastritis 01/26/2013 Polyp of colon 01/26/2013 Overview (09/21/2021): Serrated (hyperplastic) polyp @35cm. repeat colonoscopy in 10 years Insomnia 04/14/2012 Microalbuminuria 09/11/2010 Hyperlipidemia 12/25/2007 Dyslipidemia 01/31/2006 Overview (09/21/2021): High triglycerides and LDL Hypertension 01/29/2006 Seborrheic dermatitis 01/29/2006 Immunizations Immunization Administration Dates Next Due HepB-CpG 11/22/2022,09/24/2022 Influenza TIV (IM) 07/22/2018,08/11/2009 Influenza, MDCK, PF, Quadrivalent 08/02/2022, Influenza, Quadrivalent, Preservative Free 07/31 Influenza, Quadrivalent, With Preservative 07/22,07/23/2018 Moderna SARS-COV-2 10/13/2021,12/09/2020, 020 Pneumococcal Conjugate Pcv 20 08/02/2022 Pneumococcal Polysaccharide 12/03/2017, 9 Shingrix 02/16/2022,12/13/2021 Td 04/21/2021 Tdap 03/11/2009 Family History Medical History Relation Comments Cancer Father Diabetes Father Hypertension Mother Kidney disease Mother Relation Status Comments Father Mother Social History Tobacco Use Types Packs/Day Years Used Date Smoking Tobacco: Never Smokeless Tobacco: Never Tobacco Cessation:Counseling Given: No Alcohol Use Standard Drinks/Week Comments Not Currently 0 (1 standard drink = 0.6 oz pur e alcohol) Comments Unknown Sex and Gender Information Value Date Recorded Sex Assigned at Not on file Legal Sex Female 11:08 AM EDT Gender Identity Not on file Sexual Orientation Not on file Last Filed Vital Signs Vital Sign Reading Time Taken Comments Blood Pressure 144/60 07/08/2023 3:49 PM EDT Pulse 98 07/08/2023 3:49 PM EDT Temperature - - Respiratory Rate - - Oxygen Saturation 98% 07/08/2023 3:49 PM EDT Inhaled Oxygen Concentration - - Weight 64.9 kg (143 lb) 07/08/2023 3:49 PM EDT Height - - Body Mass Index - - Plan of Treatment Health Maintenance Due Date Last Done Comments Breast Cancer Screening 1965 Colorectal Cancer Screening: Annual FOBT 2014 Colorectal Cancer Screening: Colonoscopy 2014 Colorectal Cancer Screening: Sigmoidoscopy 2014 Diabetes: Ophthalmology Exam 08/09/2021 03/20/2013, 01/16/2007 Diabetes: Pedal Pulse Checked 08/09/2021 Diabetes: Sensory Foot Exam 08/09/2021 Diabetes: Visual Foot Exam 08/09/2021 Hepatitis B Vaccine (3 of 3 - 19+ 3-dose series) 03/24/2023 11/22/2022, 09/24/2022 Diabetes: Hemoglobin A1C 02/24/2025 025, 04/24/2023, 12/26/2022 Pneumococcal Vaccine: 50+ Years Completed 08/02/2022, 12/03/2017, 03/18/2009 Pneumococcal Vaccine: Peds ( 0 to 5 Years) and At-Risk Patients (6 to 49 Years) Discontinued 08/02/2022, 12/03/2017, 03/18/2009 Influenza Vaccine Completed 07/31/2024, , 08/02/2022, Additional history exists Insurance Care Teams Starch And Prosize Mixer Relationship Specialty Start Date End Date Faith Kern MD [address] [place] [address] PCP - General Family Medicine 07/24/21
--- OUTSIDE RECORDS SUMMARY | 2025-03-17 08:26 | XMS_ITS | Encounter Summary ---
Author Organization [facility] Address [facility] [place] [address] Care Team Providers Care Plug Cutting Machine Operator Name Role Phone Jayashree Monzon MD Primary Care Provider Unava ilable Italo Mar MD Primary Care Provider Selma vailable Jayashree Monzon MD Primary Care Provider Unava ilable Veto Wong MD Primary Care Provider Unavail able Faith Kern Primary Care Provider Unavailabl e Reason for Visit * Reason Onset Date Comments other 05/11/2011 non compliant Encounter Details Date Type Department Care Team Description 05/11/2011 Telephone OBGYN - [address] [address] Sherry Koroma CNM other (non compliant) Social History Tobacco Use Types Packs/Day Years Used Date Smoking Tobacco: Never Alcohol Use Standard Drinks/Week Comments Yes 0 (1 standard drink = 0.6 oz pur e alcohol) occassionally Sex Assigned at Date Recorded Not on file documented as of this encounter Miscellaneous Notes * Telephone Encounter - Sandy Bartlett - 05/11/2011 10:44 AM EDT FYI This woman has failed to respond to our phone calls and standard letter. She needs additional mammogram from her screening mammo done on 04-14-11/ I am advised to ask you to send her a failure to keep referral letter Thank You Sandy Bartlett documented in this encounter Plan of Treatment Not on file documented as of this encounter Visit Diagnoses Not on filedocumented in this encounter Care Teams Plug Cutting Machine Operator Relationship Specialty Start Date End Date Jayashree Monzon MD PCP - General 09/19/10 09/28/12 Italo Mar MD PCP - General Internal Medicine 09/29/12 02/17/13 Jayashree Monzon MD PCP - General Internal Medicine 02/18/13 08/14/18 Veto Wong MD PCP - General Internal Medicine 08/15/18 12/26/23 Faith Kern PCP - General Family Practice 12/27/23 documented as of this encounter
--- OUTSIDE RECORDS SUMMARY | 2025-03-17 08:26 | XMS_ITS | Encounter Summary ---
Author Organization [facility] Address [address] [place] [address] Phone Care Team Providers Care Welder Apprentice Arc Name Role Phone Faith Kern MD Primary Care Provider [phone] Encounter Details Date Type Department Care Team (Late st Contact Info) Description 10/24/2021 Documentation Only [facility] [address] [place] [address] Emir Cisse MD Social History Tobacco Use Types Packs/Day Years Used Date Smoking Tobacco: Never Smokeless Tobacco: Never Alcohol Use Standard Drinks/Week Comments Not Currently 0 (1 standard drink = 0.6 oz pur e alcohol) Comments Unknown Sex and Gender Information Value Date Recorded Sex Assigned at Not on file Legal Sex Female 11:08 AM EDT Gender Identity Not on file Sexual Orientation Not on file COVID-19 Exposure Response Date Recorded In the last month, have you been in contact with someone who was confirmed or suspected to have Coronavirus / COVID-19? No / Unsure 09/26/2021 2:13 PM EST documented as of this encounter Plan of Treatment Not on file documented as of this encounter Visit Diagnoses Not on filedocumented in this encounter Care Teams Welder Apprentice Arc Relationship Specialty Start Date End Date Faith Kern MD [address] [place] [address] PCP - General Family Medicine 07/24/21 documented as of this encounter
--- OUTSIDE RECORDS SUMMARY | 2025-03-17 08:26 | XMS_ITS | Encounter Summary ---
Author Organization [employer] Address [address] [facility] [address] [place] [address] Care Team Providers Care Software Technician Name Role Phone Faith Kern MD Primary Care Provider [phone] Kimberley Guadalupe PharmD Unavailable [phone] Encounter Details Date Type Department Care Team ([facility] st Contact Info) Description 10/16/2023 Telephone [facility] [address] [place] [address] Faith Kern MD [address] [place] [address] Social History Tobacco Use Types Packs/Day Years Used Date Smoking Tobacco: Never Passive Smoke Exposure: Never Smokeless Tobacco: Never Alcohol Use Standard Drinks/Week Comments Never 0 (1 standard drink = 0.6 oz pur e alcohol) Depression Answer Date Recorded Patient Health Questionnaire-9 Score 8 01/21/2023 Housing Stability Answer Date Recorded What is your housing situation today? I have keven bah 08/30/[address] you li ve. Do you have problems with any of the following? None of the above 08/30/2023 Food Insecurity Answer Date Recorded Within the past 12 months, y ou worried that your food would run out before you got money to buy more: Never True 08/30/2023 Within the past 12 months,th e food you bought just didn't last and you didn't have enough money to get more: Never True Transportation Answer Date Recorded In the past 12 months, has l ack of transportation kept you from medical appts, meetings, work or from getting things needed for daily living? No 08/30/2023 Utilities Answer Date Recorded In the past 12 months, has t he electric, gas, oil or water company threatened to shut off services in your home? No 08/30/2023 Depression Answer Date Recorded Patient Health Questionnaire-2 Score 2 01/21/2023 Comments Unknown Sex and Gender Information Value Date Recorded Sex Assigned at Female 09/10/2022 10:17 AM EDT Legal Sex Female 10:17 AM EDT Gender Identity Female 09/10/2022 10:17 AM EDT Sexual Orientation Straight 09/10/2022 10 :17 AM EDT documented as of this encounter Miscellaneous Notes * Telephone Encounter - Pushpa Avery RN - 10/16/2023 6:13 PM EST Routing message to PCP high priority. Critical result line call received at this time from Aislinn at [facility]. Patient glucose 356 as resulted today at 2pm. Fasting duration is not known prior to lab draw. Please update PCP and follow with patient as indicated. * Telephone Encounter - Amina Mars LPN - 10/16/2023 2:51 PM EST Critical result line call received at this time from Aislinn at [facility] Chem [facility]. Patient glucose 356 as resulted today at 2pm. Fasting duration is not known prior to lab draw. Please update PCP and follow with patient as indicated. documented in this encounter Plan of Treatment Upcoming Encounters Date Type Department Care Team (Late st Contact Info) Description 05/04/2025 8:30 AM EDT Office Visit [facility] [address] [place] [address] Faith Kern MD [address] [facility] [place] [address] 08/16/2025 3:00 PM EDT Medication Management [facility] [address] [place] [address] Kimberley Guadalupe PharmD [address] [place] [address] documented as of this encounter Goals Goal Patient Goal Type Associated Problems Recent Progress Patient-Stated? Author Blood Pressure < 140/90 Blood Pressure 140/70(2024 9:52 AM EDT) No Wesley Altman, PharmStephanie Hemoglobin A1c < 7 Result Component 7.1( 3:13 PM EDT) No Wesley Altman PharmD documented as of this encounter Visit Diagnoses Not on filedocumented in this encounter Additional Health Concerns Assessment Noted Time PHQ-9 Depression Total Score: 8 01/22/20 23 9:32 AM EDT documented as of this encounter Care Teams Software Technician Relationship Specialty Start Date End Date Faith Kern MD [address] [place] [address] PCP - General Family Medicine 01/15/20 Kimberley Guadalupe PharmD [address] [place] [address] Pharmacist Internal Medicine 01/11/25 documented as of this encounter
--- OUTSIDE RECORDS SUMMARY | 2025-03-17 08:27 | XMS_ITS | Encounter Summary ---
Author Organization [facility] Address [address] [place] [address] Care Team Providers Care Starch Factory Laborer Name Role Phone Jayashree Monzon MD Primary Care Provider Veto Dobson MD Primary Care Provider Unavail able Faith Kern Primary Care Provider Unavailabl e Encounter Details Date Type Department Care Team Description 12/27/2017 Transfer Records Medical Records [address] [place] [address] Social History Tobacco Use Types Packs/Day Years Used Date Smoking Tobacco: Never Smokeless Tobacco: Never Alcohol Use Standard Drinks/Week Comments Yes 0 (1 standard drink = 0.6 oz pur e alcohol) 1 drink per yr Sex Assigned at Date Recorded Not on file documented as of this encounter Plan of Treatment Not on file documented as of this encounter Visit Diagnoses Not on filedocumented in this encounter Care Teams Starch Factory Laborer Relationship Specialty Start Date End Date Jayashree Monzon MD PCP - General Internal Medicine 02/18/13 08/14/18 Veto Wong MD PCP - General Internal Medicine 08/15/18 12/26/23 Faith Kern PCP - General Family Practice 12/27/23 documented as of this encounter
--- OUTSIDE RECORDS SUMMARY | 2025-03-17 08:27 | XMS_ITS | Encounter Summary ---
Author Organization [employer] Address [address] [facility] [address] [place] [address] Care Team Providers Care On Site Soil Evaluator Name Role Phone Faith Kern MD Primary Care Provider [phone] Kimberley Guadalupe PharmD Unavailable [phone] Reason for Visit * Reason Comments Med Refill Encounter Details Date Type Department Care Team ([facility] Contact Info) Description 11/25/[address] [facility] [address] [place], [place] [id number] Faith Kern MD [address] [place], [place] [id number] Social History Tobacco Use Types Packs/Day Years [...] Orientation Straight 09/10/2022 10 :17 AM EDT COVID-19 Exposure Response Date Recorded In the last 10 days, have yo u been in contact with someone who was confirmed or suspected to have Coronavirus/COVID-19? No / Unsure 11/22/2022 12:02 PM EST documented as of this encounter Plan of Treatment Upcoming Encounters Date Type Department Care Team ([facility] Contact Info) Description 05/04/2025 8:30 AM EDT Office Visit [facility] [address] [place] [address] Faith Kern MD [address] [place] [address] 08/16/2025 3:00 PM EDT Medication Management [facility] [address] [place] [address] Kimberley Guadalupe PharmD [address] [place] [address] documented as of this encounter Goals Goal Patient Goal Type Associated Problems Recent Progress Patient-Stated? Author Blood Pressure < 140/90 Blood Pressure 140/70(2024 9:52 AM EDT) No Wesley Altman PharmD Hemoglobin A1c < 7 Result Component 7.1( 3:13 PM EDT) No Wesley Altman PharmD documented as of this encounter Visit Diagnoses Not on filedocumented in this encounter Care Teams On Site Soil Evaluator Relationship Specialty Start Date End Date Faith Kern MD [address] [place] [address] PCP - General Family Medicine 01/15/20 Kimberley Guadalupe PharmD [address] [place] [address] Pharmacist Internal Medicine 01/11/25 documented as of this encounter
--- OUTSIDE RECORDS SUMMARY | 2025-03-17 08:27 | XMS_ITS | Encounter Summary ---
Author Organization [employer] Address [address] [facility] 7t [place] [address] Care Team Providers Care Spray Painter Helper Name Role Phone Faith Kern MD Primary Care Provider [phone] Kimberley Guadalupe PharmD Unavailable [phone] Reason for Visit * Reason Comments Med Refill Encounter Details Date Type Department Care Team ([facility] Contact Info) Description 03/17/2025 Refill [facility] MED & PEDS [address] [place], [place] [id number] Faith Kern MD [address] [place] [address] Social History Tobacco Use Types Packs/Day Years Used Date Smoking Tobacco: Never Passive Smoke Exposure: Never Smokeless Tobacco: Never Alcohol Use Standard Drinks/Week Comments Never 0 (1 standard drink = 0.6 oz pur e alcohol) Depression Answer Date Recorded Patient Health Questionnaire-9 Score 8 11/26/2024 Patient Health Questionnaire-9 Score 8 11/26/2024 Last PHQ-9: Questionnaire Data Not on file 0 11/26/2024 Housing Stability Answer Date Recorded What is your housing situation today? I have keven bah 05/13/[address] you li ve. Do you have problems with any of the following? None of the above 05/13/2024 Food Insecurity Answer Date Recorded Within the past 12 months, y ou worried that your food would run out before you got money to buy more: Never True 05/13/2024 Within the past 12 months,th e food you bought just didn't last and you didn't have enough money to get more: Never True 01/2024 Transportation Answer Date Recorded In the past 12 months, has l ack of transportation kept you from medical appts, meetings, work or from getting things needed for daily living? No 05/13/2024 Utilities Answer Date Recorded In the past 12 months, has t he electric, gas, oil or water company threatened to shut off services in your home? No 05/13/2024 Depression Answer Date Recorded Patient Health Questionnaire-2 Score 1 11/26/2024 Internet Access Answer Date Recorded Internet Access Q1 Yes 07/13/2024 Internet Access Q2 Not on file 07/13/2024 Comments No Sex and Gender Information Value Date Recorded Sex Assigned at Female 09/10/2022 10:17 AM EDT Legal Sex Female 10:17 AM EDT Gender Identity Female 09/10/2022 10:17 AM EDT Sexual Orientation Straight 09/10/2022 10 :17 AM EDT documented as of this encounter Plan of Treatment Upcoming Encounters Date Type Department Care Team (Late st Contact Info) Description 05/04/2025 8:30 AM EDT Office Visit [facility] MED & PEDS [address] [place] [address] Faith Kern MD [address] [place] [address] 08/16/2025 3:00 PM EDT Medication Management [facility] MED & PEDS [address] [place] [address] Kimberley Guadalupe PharmD [address] [place] [address] documented as of this encounter Goals Goal Patient Goal Type Associated Problems Recent Progress Patient-Stated? Author Blood Pressure < 140/90 Blood Pressure 140/70(2024 9:52 AM EDT) No Wesley Altman, PharmD Hemoglobin A1c < 7 Result Component 7.1( 3:13 PM EDT) No Wesley Altman, PharmD documented as of this encounter Visit Diagnoses Not on filedocumented in this encounter Additional Health Concerns Assessment Noted Time PHQ-9 Depression Total Score: 8 11/26/19 25 9:20 AM EST documented as of this encounter Care Teams Spray Painter Helper Relationship Specialty Start Date End Date Faith Kern MD [address] [place] [address] PCP - General Family Medicine 01/15/20 Kimberley Guadalupe PharmD [address] [place] [address] Pharmacist Internal Medicine 01/11/25 documented as of this encounter
--- OUTSIDE RECORDS SUMMARY | 2025-03-17 08:27 | XMS_ITS | Encounter Summary ---
Author Organization [facility] Address [facility] [place] [address] Care Team Providers Care Machine Trimmer Name Role Phone Jayashree Monzon MD Primary Care Provider Veto Dobson MD Primary Care Provider Unavail able Faith Kern Primary Care Provider Unavailabl e Reason for Visit * Reason Onset Date Comments My Chart Appointment 04/29/2015 Encounter Details Date Type Department Care Team Description 04/29/2015 Telephone Adult Medicine [address] [address] Jayashree Monzon MD My Chart Appointment Social History Tobacco Use Types Packs/Day Years Used Date Smoking Tobacco: Never Smokeless Tobacco: Never Alcohol Use Standard Drinks/Week Comments Yes 0 (1 standard drink = 0.6 oz pur e alcohol) 1 drink per yr Sex Assigned at Date Recorded Not on file documented as of this encounter Miscellaneous Notes * Telephone Encounter - Sea Gil L.P.N. - 05/01/2015 2:55 PM EDT Telephone Information: Called patient left message for patient to call triage nurse * Telephone Encounter - Sea AguilarP.NGeorgiana - 04/29/2015 1:40 PM EDT Called and left a message on her phone to call triage nurse Will send a message via MY CHART Her appointment needs to be triaged * Telephone Encounter - Tamra Hanks - 04/29/2015 11:11 AM EDT Patient has scheduled a visit through My Chart. Please call patient to triage for appropriateness. Date appointment is booked: Appointment scheduled with Stephen Dugan Reason for appointment: upper stomach discomfort and fluttering documented in this encounter Plan of Treatment Not on file documented as of this encounter Visit Diagnoses Not on filedocumented in this encounter Care Teams Machine Trimmer Relationship Specialty Start Date End Date Jayashree Monzon MD PCP - General Internal Medicine 02/18/13 08/14/18 Veto Wong MD PCP - General Internal Medicine 08/15/18 12/26/23 Faith Kern PCP - General Family Practice 12/27/23 documented as of this encounter
--- OUTSIDE RECORDS SUMMARY | 2025-03-17 08:27 | XMS_ITS | Encounter Summary ---
Author Organization [employer] Address [address] [facility] 7t [place] [address] Care Team Providers Care Laboratory Associate Name Role Phone Faith Kern MD Primary Care Provider [phone] Kimberley Guadalupe PharmD Unavailable Reason for Visit * Reason Comments Med Refill Encounter Details Date Type Department Care Team ([facility] st Contact Info) Description 03/03/2024 Refill [facility] MED & PEDS [address] [place], [place] [phone] Faith Kern MD [address] [place] [address] Social History Tobacco Use Types Packs/Day Years [...] Patient Health Questionnaire-2 Score 2 01/21/2023 Comments No Sex and Gender Information Value [...] Description 05/04/2025 8:30 AM EDT Office Visit [facility] MED & PEDS [address] [place] [address] Faith Kern MD [address] [place] [address] 08/16/2025 3:00 PM EDT Medication Management [facility] MED & PEDS [address] [place] [address] Kimberley Guadalupe PharmD [address] [place] [address] documented as of this encounter Goals Goal [...] documented as of this encounter Care Teams Laboratory Associate Relationship Specialty Start Date End Date Faith Kern MD [address] [place] [address] PCP - General Family Medicine 01/15/20 Kimberley Guadalupe, Rakesh [address] [place] [phone] Pharmacist Internal Medicine 01/11/25 documented as of this encounter
--- OUTSIDE RECORDS SUMMARY | 2025-03-17 08:27 | XMS_ITS | Encounter Summary ---
Author Organization [facility] Address [facility] [place] [address] Care Team Providers Care Train Control Technician Name Role Phone Jayashree Monzon MD Primary Care Provider Veto Dobson MD Primary Care Provider Unavail able Faith Kern Primary Care Provider Unavailabl e Encounter Details Date Type Department Care Team Description 07/11/2017 Refill Adult Medicine [address] [address] Jayashree Monzon MD Social History Tobacco Use Types Packs/Day [...] on filedocumented in this encounter Care Teams Train Control Technician Relationship Specialty Start Date End Date Jayashree Monzon MD PCP - General Internal Medicine 02/18/13 08/14/18 Veto Wong MD PCP - General Internal Medicine 08/15/18 12/26/23 Faith Kern PCP - General Family Practice 12/27/23 documented as of this encounter
--- OUTSIDE RECORDS SUMMARY | 2025-03-17 08:27 | XMS_ITS | Encounter Summary ---
Author Organization [employer] Address [address] [facility] 7t [place] [address] Care Team Providers Care Water Conservationist Name Role Phone Faith Kern MD Primary Care Provider [phone] Kimberley Guadalupe PharmD Unavailable [phone] Reason for Referral * Social Care Application (Routine) - Closed Specialty Diagnoses / Procedures Referred By Contac t Referred To Contact Diagnoses Diabetes mellitus due to underlying condition with hyperosmolarity without coma, without long-term current use of insulin (CMS/HCC) Faith Kern MD [address] [place] [address] Phone: tel: fax: Eliana Flores [address] [place] [address] fax: Referral ID Status Reason Start Date Expiration Date V isits Requested Visits Authorized [id number] Closed Specialty Services Required 01/16/2023 07/15/2023 1 1 Encounter Details Date Type Department Care Team (Late st Contact Info) Description 01/16/2023 Orders Only [facility] MED & PEDS [address] [place], [place] [phone] Faith Kern MD [address] [place] [address] Diabetes mellitus due to underlying condition with hyperosmolarity without coma, without long-term current use of insulin (CMS/HCC) (Primary Dx) Social History Tobacco Use Types Packs/Day Years [...] Description 05/04/2025 8:30 AM EDT Office Visit [facility] MED & PEDS [address] [place] [address] Faith Kern MD [address] [place] [address] 08/16/2025 3:00 PM EDT Medication Management [facility] MED & PEDS [address] [place] [address] Kimberley Guadalupe PharmD [address] [place] [address] Scheduled Referrals Name Type Priority Associated Diagnoses Orde r Schedule Referral to Diabetes Prevention Program Outpatient Referral Routine Diabetes mellitus due to underlying condition with hyperosmolarity without coma, without long-term current use of insulin (CMS/HCC) Ordered: 01/16/2023 documented as of this encounter Goals Goal Patient Goal Type Associated Problems Recent Progress Patient-Stated? Author Blood Pressure < 140/90 Blood Pressure 140/70(2024 9:52 AM EDT) No eWsley Altman, PharmD Hemoglobin A1c < 7 Result Component 7.1( 3:13 PM EDT) No Wesley Altman, PharmD documented as of this encounter Visit Diagnoses Diagnosis Diabetes mellitus due to underlying condition with hyperosmolarity without coma, without long-term current use of insulin (CMS/HCC)- Primary documented in this encounter Care Teams Water Conservationist Relationship Specialty Start Date End Date Faith Kern MD [address] [place] [address] PCP - General Family Medicine 01/15/20 Kimberley Guadalupe, Rakesh [address] [place] [address] Pharmacist Internal Medicine 01/11/25 documented as of this encounter
--- OUTSIDE RECORDS SUMMARY | 2025-03-17 08:27 | XMS_ITS | Encounter Summary ---
Author Organization [facility] Address [address] [place] [address] Care Team Providers Care Traffic Control Officer Name Role Phone Jayashree Monzon MD Primary Care Provider Veto Dobson MD Primary Care Provider Unavail able Faith Kern Primary Care Provider Unavailabl e Reason for Visit * Reason Onset Date Comments Pre-visit Diabetes Lab Adult Medicine 09/07/2013 Encounter Details Date Type Department Care Team Description 09/07/2013 Telephone Adult Medicine [address] [address] Jayashree Monzon MD Pre-visit Diabetes Lab Adult Medicine Social History Tobacco Use Types Packs/Day Years Used Date Smoking Tobacco: Never Smokeless Tobacco: Never Alcohol Use Standard Drinks/Week Comments Yes 0 (1 standard drink = 0.6 oz pur e alcohol) 1 drink per yr Sex Assigned at Date Recorded Not on file documented as of this encounter Miscellaneous Notes * Telephone Encounter - Abeba Wade M.A. - 09/07/2013 9:16 AM EDT A message was left on the patients voice mail to return call to [facility]. If patient calls back, please instruct the patient to have their diabetes lab work completed at least 3 days prior to their upcoming appointment in Adult Medicine on 09/14/13 at 10:00 am with . Let the patient know our lab is open on the weekends in the [place] office only. The patient does not need to be fasting to complete the lab work. documented in this encounter Plan of Treatment Not on file documented as of this encounter Visit Diagnoses Not on filedocumented in this encounter Care Teams Traffic Control Officer Relationship Specialty Start Date End Date Jayashree Monzon MD PCP - General Internal Medicine 02/18/13 08/14/18 Veto Wong MD PCP - General Internal Medicine 08/15/18 12/26/23 Faith Kern PCP - General Family Practice 12/27/23 documented as of this encounter
--- OUTSIDE RECORDS SUMMARY | 2025-03-17 08:27 | XMS_ITS | Encounter Summary ---
Author Organization [facility] Address [address] [place] [address] Care Team Providers Care Cyber Incident Responder Name Role Phone Faith Kern Primary Care Provider Unavailabl e Encounter Details Date Type Department Care Team Description 12/27/2023 Old Records [facility] [address] [id number] Armand Max DPM [address] [address] Social History Tobacco Use Types Packs/Day Years [...] on filedocumented in this encounter Care Teams Cyber Incident Responder Relationship Specialty Start Date End Date Faith Kern PCP - General Family Practice 12/27/23 documented as of this encounter
--- OUTSIDE RECORDS SUMMARY | 2025-03-17 08:27 | XMS_ITS | Encounter Summary ---
Author Organization [email or web address] Address [address] [facility] [address] [place] [address] Care Team Providers Care Afternoon Babysitter Name Role Phone Faith Kern MD Primary Care Provider [phone] Kimberley Guadalupe PharmD Unavailable [phone] Reason for Visit * Reason Onset Date Comments Med Refill 03/11/2025 Encounter Details Date Type Department Care Team (Late st Contact Info) Description 03/11/2025 Refill [facility] MED & PEDS [address] [place] [address] Faith Kern MD [address] [place] [address] Social History Tobacco Use Types Packs/Day Years [...] Description 05/04/2025 8:30 AM EDT Office Visit [facility] MED & PEDS [address] [place] [address] Faith Kern MD [address] [place] [address] 08/16/2025 3:00 PM EDT Medication Management [facility] MED & PEDS [address] [place] [address] Kimberley Guadalupe PharmD [address] [place] [address] documented as of this encounter Goals Goal [...] Time PHQ-9 Depression Total Score: 8 11/26/19 9:20 AM EST documented as of this encounter Care Teams Afternoon Babysitter Relationship Specialty Start Date End Date Faith Kern MD [address] [place] [address] PCP - General Family Medicine 01/15/20 Kimberley Guadalupe PharmD [address] [place] [address] Pharmacist Internal Medicine 01/11/25 documented as of this encounter
--- OUTSIDE RECORDS SUMMARY | 2025-03-17 08:27 | XMS_ITS | Encounter Summary ---
Author Organization [facility] Address [facility] [place] [address] Care Team Providers Care Absorption And Adsorption Engineer Name Role Phone Jayashree Monzon MD Primary Care Provider Veto Dobson MD Primary Care Provider Unavail able Faith Kern Primary Care Provider Unavailabl e Encounter Details Date Type Department Care Team Description 07/03/2016 SOLID WASTE DISPOSAL MANAGER/[facility] Report Medical Records [address] [place] [address] Abstract, Provider Social History Tobacco Use Types Packs/Day Years [...] on filedocumented in this encounter Care Teams Absorption And Adsorption Engineer Relationship Specialty Start Date End Date Jayashree Monzon MD PCP - General Internal Medicine 02/18/13 08/14/18 Veto Wong MD PCP - General Internal Medicine 08/15/18 12/26/23 Faith Kern PCP - General Family Practice 12/27/23 documented as of this encounter
--- OUTSIDE RECORDS SUMMARY | 2025-03-17 08:27 | XMS_ITS | Clinical Summary ---
Author Organization [employer] Address [address] [facility] [address] [place] [address] Care Team Providers Care American Studies Professor Name Role Phone Faith Kern MD Primary Care Provider [phone] Kimberley Guadalupe PharmD Unavailable [phone] Allergies Active Allergy Reactions Criticality Noted Date Comments Lisinopril Itching Low 11/15/2022 hives Shellfish-Derived Products Hives Low 3 Medications valsartan (Diovan) 80 MG tablet TAKE ONE TABLET DAILY 022 Active cloNIDine (Catapres) 0.1 MG tablet TAKE ONE TABLET BY MOUTH TWICE DAILY TWICE DAILY IN THE MORNING AND AT BEDTIME 022 Active dorzolamide (Trusopt) 2 % ophthalmic solution PLACE ONE DROP IN EACH EYE TWICE DAILY Active latanoprost (Xalatan) 0.005 % ophthalmic solution PLACE ONE DROP IN EACH EYE AT BEDTIME 022 Active hydrOXYzine HCl (Atarax) 25 MG tabletIndicati ons:Hypertensi on, unspecified type TAKE 1 OR 2 TABLETS BY MOUTH EVERY DAY NEEDED FOR ANXIETY. 60 tablet 3 023 Active Blood Glucose Monitoring Suppl (FreeStyle glucose monitoring) kitIndications :Type 2 diabetes mellitus without complication, with long-term current use of insulin ([facility]) Check sugars BID 1 each 023 Active FREESTYLE LITE test strip 1 each by Other route 3 times daily. 100 each 11 024 Active acetaminophen (Tylenol 8 Hour) 650 MG ER tablet TAKE ONE TABLET EVERY 8 HOURS NEEDED 60 tablet 5 Active cetirizine (ZyrTEC) 10 MG tablet TAKE ONE TABLET BY MOUTH EVERY MORNING 90 tablet 1 Active Farxiga 5 MG TAKE ONE TABLET EVERY MORNING BEFORE BREAKFAST 90 tablet 3 Active fluticasone (Flonase) 50 MCG/ACT nasal spray Administer 1 spray into each nostril Once per day. 16 g 3 Active Lantus SoloStar 100 UNIT/ML penIndications :Type 2 Diabetes Mellitus INJECT 30 UNITS SUBCUTANEOUSLY AT BEDTIME 3 mL 3 Active brimonidine (AlphaGAN) 0.2 % ophthalmic solution PLACE ONE DROP IN THE RIGHT EYE TWICE DAILY Active chlorthalidone (Hygroton) 25 MG tablet Take 0.5 tablets (12.5 mg) by mouth in the morning. Active atorvastatin (Lipitor) 80 MG tablet Take 1 tablet (80 mg) by mouth Once per day. 30 tablet Active Lancets 33G misc Test blood sugar up to 3 times daily 100 each Active Aspirin Adult Low Strength 81 MG EC tablet TAKE ONE TABLET EVERY MORNING 30 tablet 5 Active amLODIPine (Norvasc) 10 MG tablet TAKE ONE TABLET EVERY MORNING 30 tablet 5 Active Trulicity 0.75 MG/0.5ML solution auto-injector INJECT ONE PEN (=0.75MG) SUBCUTANEOUSLY ONCE A WEEK DIRECTED 2 mL Active insulin pen needle (Pentips) 32G x 4 mm misc USE ONE EVERY DAY. 100 each Active Pentips 32G X 4 MM misc USE ONE EVERY DAY. 100 each 3 024 2024 Discontinued(R eotiffanie (will not trigger notification to Pharmacy)) Aspirin Adult Low Strength 81 MG EC tablet TAKE ONE TABLET EVERY MORNING 30 tablet 5 024 2024 Discontinued amLODIPine (Norvasc) 10 MG tablet TAKE ONE TABLET EVERY MORNING 30 tablet 5 2024 Discontinued Dulaglutide (Trulicity) 0.75 MG/0.5ML solution auto-injector Inject 0.75 mg under the skin 1 (one) time per week. 2 mL 2 025 2024 Discontinued Continuous Glucose Dispensing Operator (FreeStyle Nash 2 [place]) device Scan sensor every 8 hours 1 each 025 2024 Discontinued(M ed list cleanup (will not trigger notification to Pharmacy)) Continuous Glucose Sensor (FreeStyle Nash 2 Sensor) misc Apply 1 sensor every 14 days 2 each 2 025 2024 Discontinued(M ed list cleanup (will not trigger notification to Pharmacy)) Hospital, Clinic, or Other Facility Administered Medication Ordered Dose Route Frequency Start Date End Date Status triamcinolone acetonide (Kenalog-40) injection 40 mgIndications:Adhesive capsulitis of right shoulder 40 mg IX Once 02/25/2025 02/25/2025 Ended lidocaine (Xylocaine) 1 % injection 20 mgIndications:Adhesive capsulitis of right shoulder 20 mg IJ Once 02/25/2025 02/25/2025 Ended triamcinolone acetonide (Kenalog-40) injection 40 mgIndications:Adhesive capsulitis of right shoulder 40 mg IX Once 02/25/2025 02/25/2025 Ended Active Problems Problem Noted Date Diagnosed Date Women's annual routine gynecological examination 05/05/2024 Assessment & Plan (05/05/2024 9:39 AM EDT): Last LMP 3 yrs ago, desires removal of IUD, removed Pap smear UTD next in 2026 Prev. PAP: Date Value Ref Range Status 03/06/2022 NONE GIVEN Final Mammo UTD Rash in adult 01/13/2024 Assessment & Plan (01/14/2024 2:28 AM EST): Patient reported rash in bilateral arms. She has itchiness in arms. She was prescribed zyrtec, elimite, and prednisone for rash. I gave patient a scabies test to do at home. Hidradenitis axillaris 12/03/2023 Bronchitis 02/19/2023 Assessment & Plan (02/19/2023 2:52 PM EDT): Patient with bronchitis symptoms, will proceed with steroids, antibiotics and expectorant. RTC if symptoms worsen, will send out SARS-CoV-2. Acute cough 11/15/2022 Assessment & Plan (11/15/2022 5:18 PM EST): Likely secondary to acute URI, negative rapid testing. At this moment will rx medication for supportive care and recommend rest. RTC if no improvement of symptoms Primary open angle glaucoma 05/01/2016 Overview (11/19/2022): Dr. Simms 2015 Dr. Simms 2016 Nonproliferative diabetic retinopathy 01/18/2015 Overview (11/19/2022): Dr. Simms 01/17/15 Dr. Simms 01/17/15 Neuropathy of lower extremity 02/26/2013 Diabetes mellitus 02/26/2013 Helicobacter pylori gastritis 02/09/2013 Polyp of colon 01/26/2013 Overview (11/15/2022): Serrated (hyperplastic) polyp @35cm. repeat colonoscopy in 10 years Serrated (hyperplastic) polyp @35cm. repeat colonoscopy in 10 years Insomnia 04/14/2012 Microalbuminuria 09/11/2010 Hyperlipidemia 12/25/2007 Dyslipidemia 01/31/2006 Overview (11/15/2022): High triglycerides and LDL High triglycerides and LDL Seborrheic dermatitis 01/29/2006 Hypertension 01/29/2006 Chronic liver disease 01/29/2006 Overview (11/15/2022): IMO update Resolved Problems Problem Noted Date Diagnosed Date Resolved Date Lymphadenopathy, axillary 02/19/2023 Assessment & Plan (02/19/2023 2:53 PM EDT): Left axilla with 2.0 cm x 1.7 cm induration, will send for US. Could be reactive LN. IUD (intrauterine device) in place 06/11/2015 05/05/2024 Overview (11/15/2022): Mirena placed in 2015 Mirena placed in 2015 Encounters Date Type Department Care Team Description 03/17/2025 Refill [facility] [address] [facility] [place] [phone] Faith Kern MD 03/11/2025 Refill [facility] [address] [facility] [place]-[phone] Faith Kenr MD 03/04/2025 Refill [facility] [address] [facility] [place]-[phone] Faith Kern MD 02/27/2025 Refill [facility] [address] [facility] [place]-[phone] Faith Kern MD 02/25/2025 9:45 AM EDT Procedure Visit [facility] [address] [facility] [place] [phone] Faith Kern MD Adhesive capsulitis of right shoulder (Primary Dx); Diabetes mellitus due to underlying condition without complication, with long-term current use of insulin ([facility]) 02/25/2025 Travel 02/22/2025 Travel 01/26/2025 Telephone [facility] [address] [facility] [place] [phone] Kimberley Guadalupe, PharmStephanie 01/11/2025 Travel 12/21/2024 Telephone [facility] [address] [place] [address] Faith Kern MD from Last 3 Months Immunizations Name Administration Dates Next Due HepB-CpG 11/22/2022,09/24/2022 Influenza Injectable Quadriv alant Preservative Free IIV4 MDCK 08/08/2023,08/02/2022,08/10/2020 Influenza injectable quadriv alent IIV4 with preservative 07/22/2019,07/23/2018 Influenza injectable quadriv alent preservative free 07/31/2021 Influenza, IIV3, injectable 07/22/2018, 9 Influenza, seasonal, injecta ble, preservative free 07/31/2024 Moderna Covid-19 Vaccine 12+ 10/13/2021,12/09/19 21,11/09/2020 Pneumococcal Conjugate PCV 20 08/02/2022 Pneumococcal Polysaccharide PPSV23 12/03/2017, TD (adult), 2 Lf tetanus tox oid, preservative free, adsorbed 04/21/2021 Tdap 03/11/2009 Zoster, Recombinant 02/16/2022,12/13/2021 Family History Medical History Relation Name Comments Diabetes Father Lymphoma Father Cataracts Mother Glaucoma Mother Hypertension Mother Kidney failure Mother Relation Name Status Comments Father Mother Social History Tobacco Use Types Packs/Day Years Used Date Smoking Tobacco: Never Passive Smoke Exposure: Never Smokeless Tobacco: Never Tobacco Cessation:Counseling Given: Not Answered Alcohol Use Standard Drinks/Week Comments Never 0 [...] Orientation Straight 09/10/2022 10 :17 AM EDT Last Filed Vital Signs Vital Sign Reading Time Taken Comments Blood Pressure 140/70 02/25/2025 9:52 AM EDT Pulse 92 02/25/2025 9:52 AM EDT Temperature 36.7 ??C (98.1 ??F) 02/25/2025 9:52 AM ED T Respiratory Rate 18 02/25/2025 9:52 AM EDT Oxygen Saturation 97% 11/26/2024 8:44 AM EST Inhaled Oxygen Concentration - - Weight 64.9 kg (143 lb) 02/25/2025 9:52 AM EDT Height 162.6 cm (5' 4 ) 02/25/2025 9:52 AM EDT Body Mass Index 24.55 02/25/2025 9:52 AM EDT Plan of Treatment Upcoming Encounters Date Type Department Care Team (Late st Contact Info) Description 05/04/2025 8:30 AM EDT Office Visit [facility] [address] [facility] [place] [address] Faith Kern MD [address] [facility] [place] [address] 08/16/2025 3:00 PM EDT Medication Management [facility] [address] [place] [address] Kimberley Guadalupe, PharmD [address] [place] [address] Health Maintenance Due Date Last Done Comments CT Colonography 1965 Colonoscopy 1965 FIT 1965 FOBT 1965 HIV Screening 1965 Sigmoidoscopy 1965 Eye Exam 1975 Alcohol/Substance Use Screening 1977 Hepatitis C Screening 1983 Hepatitis A Vaccines (1 of 2 - Risk 2-dose series) 1984 Diabetes: Foot Exam 06/21/2024 06/21/2023, COVID-19 Vaccine ( season) 2024 10/13/2021, 12/09/2020, 11/09/2020 Pap Smear 03/06/2025 03/06/2022 Mammogram 03/21/2025 03/21/2024, 05/0 06/2023, 03/18/2023, Additional history exists SDOH Screening 05/13/2025 05/13/2024 Diabetes: Hemoglobin A1C 05/24/2025 025, 11/26/2024, 05/22/2024, Additional history exists Depression Screening 11/26/2025 11/26/2024, 11/26/19 25 Lipid Panel 11/26/2025 11/26/2024, 12/0 04/2023, 01/21/2023, Additional history exists Tobacco Screening 02/25/2026 02/25/2025 Colorectal Cancer Screening 01/18/2027 FIT DNA/Cologuard 01/18/2027 01/19/2024 Cervical Cancer Screening 03/06/2027 HPV/Cotest 03/06/2027 03/06/2022 DTaP/Tdap/Td Vaccines (3 - Td or Tdap) 04/21/2031 04/21/2021, 03/11/2009 RSV Patients and Patients Aged 60 years or older (1 - 1-dose 75+ series) 2040 Zoster Vaccines Completed 02/16/2022, 12/13/2021 Pneumococcal Vaccine: 50+ Years Completed 08/02/2022, 12/03/2017, 03/18/2009 Hepatitis B Vaccines Completed 11/22/2022, 09/24/20 Influenza Vaccine Completed 07/31/2024, , 08/02/2022, Additional history exists HIB Vaccines Aged Out No longer eligi ble based on patient's age to complete this topic HPV Vaccines Aged Out No longer eligi ble based on patient's age to complete this topic IPV Vaccines Aged Out No longer eligi ble based on patient's age to complete this topic Meningococcal Vaccine Aged Out No ebenezer adelina eligible based on patient's age to complete this topic RSV under 20 months Aged Out No longe r eligible based on patient's age to complete this topic Rotavirus Vaccines Aged Out No longer eligible based on patient's age to complete this topic Goals Goal Patient Goal Type Associated Problems Recent Progress Patient-Stated? Author Blood Pressure < 140/90 Blood Pressure 140/70(2024 9:52 AM EDT) No Wesley Altman, Rakesh Hemoglobin A1c < 7 Result Component 7.1( 3:13 PM EDT) No Wesley Altman PharmD Procedures Procedure Name Priority Date/Time Associated Diagnosis Comments POCT GLUCOSE Routine 02/25/2025 9:54 AM EDT Diabetes mellitus due to underlying condition without complication, with long-term current use of insulin ([facility]) DC ARTHROCENTESIS ASPIR&/INJ MAJOR JT/BURSA W/O US Routine 02/25/2025 9:46 AM EDT Adhesive capsulitis of right shoulder POCT GLYCATED HEMOGLOBIN, TOTAL Routine 02/22/2025 3:13 PM EDT Diabetes mellitus due to underlying condition without complication, with long-term current use of insulin ([facility]) LIPID PANEL, STANDARD Routine 11/26/2024 9:47 AM EST Primary hypertension BI MAMMOGRAM SCREENING TOMOSYNTHESIS BILATERAL Routine 03/21/2024 8:30 AM EDT LAB COLOGUARD?? COLON CANCER SCREEN Routine 01/19/2024 4:30 PM EDT Encounter for screening for malignant neoplasm of colon THINPREP IMAGING PAP AND HPV MRNA E6/E7 WITH REFLEX TO HPV 16,18/45 Routine 03/06/2022 9:04 AM EDT from Last 3 Months or Most Recently Relevant to Health Maintenance Results * POCT Glucose (02/25/2025 9:54 AM EDT) Glucose Blood, POC 192 60 - 200 mg/dL QC Media Lot # [id number] Lot# Expiration Date Blood Capillary blood specimen / Unknown 02/25/2025 9:54 AM EDT us Faith Kern MD POINT OF CARE TEST ENTER/EDIT OR DERABLES Final Result * DC ARTHROCENTESIS ASPIR&/INJ MAJOR JT/BURSA W/O US (02/25/2025 9:46 AM EDT) Narrative Faith Kern MD - 02/25/2025 9:46 AM EDT Faith Kern MD ? 02/25/2025 10:14 AM Arthrocentesis Date/Time: 02/25/2025 9:46 AM Performed by: Faith Kern MD Authorized by: Faith Kern MD ?? Consent: ??Consent obtained: ??Verbal and written ??Consent given by: ??Patient ??Risks, benefits, and alternatives were discussed: yes ?Risks discussed: ??Pain ??Alternatives discussed: ??Referral [place] protocol: ??Procedure explained and questions answered to patient or proxy's satisfaction: yes ?Relevant documents present and verified: yes ?Test results available: yes ?Imaging studies available: yes ?Required blood products, implants, devices, and special equipment available: yes ?Site/side marked: yes ?Immediately prior to procedure, a time out was called: yes ?Patient identity confirmed: ??Verbally with patient Location: ??Location: ??Shoulder ??Shoulder: ??R glenohumeral Anesthesia: ??Anesthesia method: ??Topical application Procedure details: ??Preparation: Patient was prepped and draped in usual sterile fashion ?Needle gauge: ??22 G ??Ultrasound guidance: no ?Approach: ??Posterior ??Steroid injected: yes ?Specimen collected: no ?? Post-procedure details: ??Dressing: ??Adhesive bandage ??Procedure completion: ??Tolerated Faith Kern MD IN CLINIC/BEDSIDE ORDERABLES Fin al Result * (ABNORMAL) POCT A1C (02/22/2025 3:13 PM EDT) Hemoglobin A1C 7.1(A) 4.0 - 6.0 % QC Media Lot # [id number] Lot# Expiration Date Blood 02/22/2025 3:13 PM EDT Faith Kern MD POINT OF CARE TEST ENTER/EDIT OR DERABLES Final Result * (ABNORMAL) Lipid Panel, Standard (11/26/2024 9:47 AM EST) Triglycerides 208(H) <150 mg/dL [facility] Comment:Desirable Triglyceri de: less than 150 mg/dLBorderline High Triglyceride 150-199 mg/dLHigh Triglyceride: 200-499 mg/dLVery High Triglyceride: greater than or equal to 5OO mg/dL Cholesterol 168 <200 mg/dL [facility] Comment:Desirable Cholestero l: less than 200 mg/dLBorderline High Cholesterol: 200-239 mg/dLHigh Cholesterol: greater than 239 mg/dL LDL Cholesterol Calculated 83 <100 mg/dL [facility] Comment:Desirable LDL: less than 100 mg/dLNear Optimal/Above Optimal LDL: 110- 129 mg/dLBorderline High LDL: 130-159 mg/dLHigh LDL: 160-189 mg/dLVery High LDL: greater than or equal to 190 mg/dL HDL Cholesterol 44 >40 mg/dL [facility] Comment:Desirable HDL: great er than 40 mg/dL Note: This HDL assay may give artificially low results in patients with liver disease. Blood Venous blood specimen / Unknown 11/26/2024 9:47 AM EST 11/26/2024 2:00 PM EST us Faith Kern MD LAB BLOOD ORDERABLES Final Resul t [facility] [address] [place] [address] [phone] * BI Mammogram Screening Tomosynthesis Bilateral (03/21/2024 8:30 AM EDT) Anatomical Region Laterality Modality Breast Bilateral Mammography 03/21/2024 8:30 AM EDT Narrative 04/06/2024 1:04 PM EDT ? [facility] ? [address] ?[place] [address] ? Mammography Report ? Signed ? Patient: Virgil,Susannah ?MR#: [id number] ?? 1 ? : 1965 ?Acct:[id number] ? Age/Sex: 58 / F ?ADM Date: 03/21/24 ? Loc: HO.MAMMO ? Attending Dr: Faith Roche Concha MD ? Ordering Physician: Concha,Faith Roche MD ?Results: 1Negati ?? ve ? Date of Service: 03/21/24 ?Follow Up: 1 Year From Orig ?? inal Mammogram ? Procedure(s): MM tomosynthesis screening BI ?? Accession Number(s): [id number] ? cc: Faith Kern MD ? EXAMINATION: ?? MM SCREENING DIGITAL BREAST TOMOSYNTHESIS, BILATERAL ? CLINICAL INFORMATION: ? Screening. Asymptomatic. ? COMPARISON: ?? Mammography: This study is compared with prior exams dating back to ?? 2019. ? TECHNIQUE: ?? Digital breast tomosynthesis is performed in both the craniocaudal and ?? mediolateral oblique views along with computer-aided detection (CAD). ?? Synthesized 2D images are generated from the tomosynthesis. ? FINDINGS: ?? The breasts are heterogeneously dense, which may obscure small masses ?? (ACR BI-RADS breast composition Category c). ? There are no significant masses, abnormal calcifications, or other ?? abnormalities. ? MM/MM tomosynthesis screening BI ?? IMPRESSION: ?? No mammographic evidence of malignancy. ? ASSESSMENT: ? BI-RADS BI-RADS 1 - Negative ? RECOMMENDATION: ?? Routine annual mammography screening. ? 1 year F/U ? This examination should not preclude the clinical evaluation of a ?? suspicious palpable abnormality. ? This patient's information was entered into a reminder system with a ?? target due date for their next mammogram. ? Dictated By: ?Nolvia David MD ? Signed By: ?<Electronically signed by Nolvia David MD in OV> ? 04/06/24 1259 ? DD/ 0830 ? TD/TT: ? Ceo And Founder: ? Procedure Note Tayla, Image - 04/06/2024 [facility] [address] [place] [address] [place] [address] Mammography Report Signed Patient: Kate HermanMarzenaAreli#: [id number] 1 : 1965Acct:[id number] Age/Sex: 58 / FADM Date: 03/21/24 Loc: [facility] Attending Dr: Faith Kern MD Ordering Physician: Faith Kernesults: 1Negati ve Date of Service: 03/21/24Follow Up: 1 Year From Orig ina Mammogram Procedure(s): MM tomosynthesis screening BI Accession Number(s): [id number] cc: Faith Kern MD EXAMINATION: MM SCREENING DIGITAL BREAST TOMOSYNTHESIS, BILATERAL CLINICAL INFORMATION: Screening. Asymptomatic. COMPARISON: Mammography: This study is compared with prior exams dating back to 2019. TECHNIQUE: Digital breast tomosynthesis is performed in both the craniocaudal and mediolateral oblique views along with computer-aided detection (CAD). Synthesized 2D images are generated from the tomosynthesis. FINDINGS: The breasts are heterogeneously dense, which may obscure small masses (ACR BI-RADS breast composition Category c). There are no significant masses, abnormal calcifications, or other abnormalities. MM/MM tomosynthesis screening BI IMPRESSION: No mammographic evidence of malignancy. ASSESSMENT: BI-RADS BI-RADS 1 - Negative RECOMMENDATION: Routine annual mammography screening. 1 year F/U This examination should not preclude the clinical evaluation of a suspicious palpable abnormality. This patient's information was entered into a reminder system with a target due date for their next mammogram. Dictated By: Nolvia David MD Signed By: <Electronically signed by Nolvia David MD in OV> 04/06/24 1259 DD/ 0830 TD/TT: Ceo And Founder: Faith Kern MD IMG BI PROCEDURES Final Result * Cologuard?? colon cancer screening (01/19/2024 4:30 PM EDT) Cologuard Result Negative Negative 01/26/20 8:56 AM EDT [facility] (CLIA #:[id number]) Comment: NEGATIVE TEST RESULT. A negative Cologuard result indicates a low likelihood that a colorectal cancer (CRC) or advanced adenoma (adenomatous polyps with more advanced pre-malignant features) ??is present. The chance that a person with a negative Cologuard test has a colorectal cancer is less than 1 in 1500 (negative predictive value >99.9%) or has an ??advanced adenoma is less than ??5.3% (negative predictive value 94.7%). These data are based on a prospective cross-sectional study of 10,000 individuals at average risk for colorectal cancer who were screened with both Cologuard and colonoscopy. (Joel Jacobo al, N Engl J Med 2014;370(14):1286- 1297) The normal value (reference range) for this assay is negative. COLOGUARD RE-SCREENING RECOMMENDATION: Periodic colorectal cancer screening is an important part of preventive healthcare for asymptomatic individuals at average risk for colorectal cancer. ??Following a negative Cologuard result, the [place] [employer] and U.S. Multi-Society Task Force screening guidelines recommend a Cologuard re-screening interval of 3 years. References: [place] [employer] Guideline for Colorectal Cancer Screening: https://www.cancer.org/cancer/bhsfu-lwhdno-lmpbje/eponemnan-tfpppvjeh-negatvj/ac s-rec ommendations.html.; Misael DK, Bola NOBLE, Peace EvansK, Colorectal Cancer Screening: Recommendations for Physicians and Patients from the U.S. Multi-Society Task Force on Colorectal Cancer Screening , Am J Gastroenterology 2017; 112:1054-3300. TEST DESCRIPTION: Composite algorithmic analysis of stool DNA-biomarkers with hemoglobin immunoassay. ?? Quantitative values of individual biomarkers are not reportable and are not associated with individual biomarker result reference ranges. Cologuard is intended for colorectal cancer screening of adults of either sex, 45 years or older, who are at average-risk for colorectal cancer (CRC). Cologuard has been approved for use by the U.S. FDA. The performance of Cologuard was established in a cross sectional study of average-risk adults aged 50-84. Cologuard performance in patients ages 45 to 49 years was estimated by sub-group analysis of near-age groups. Colonoscopies performed for a positive result may find as the most clinically significant lesion: colorectal cancer [4.0%], advanced adenoma (including sessile serrated polyps greater than or equal to 1cm diameter) [20%] or non- advanced adenoma [31%]; or no colorectal neoplasia [45%]. These estimates are derived from a prospective cross-sectional screening study of 10,000 individuals at average risk for colorectal cancer who were screened with both Cologuard and colonoscopy. (Joel Jacobo al, N Engl J Med 2014;370(14):6501-6804.) Cologuard may produce a false negative or false positive result (no colorectal cancer or precancerous polyp present at colonoscopy follow up). A negative Cologuard test result does not guarantee the absence of CRC or advanced adenoma (pre-cancer). The current Cologuard screening interval is every 3 years. ([place] [employer] and U.S. Multi-Society Task Force). Cologuard performance data in a 10,000 patient pivotal study using colonoscopy as the reference method can be accessed at the following location: www.[employer]/results. Additional description of the Cologuard test process, warnings and precautions can be found at www.cologuard.com. Stool specimen (specimen) 01/19/2024 4:30 PM EDT 01/22/2024 2:01 PM EDT Faith Kern MD LAB MOLECULAR DIAGNOSTICS ORDERA BLES Final Result [facility] (CLIA #:[id number]) [address] [place] [place] [address], * THINPREP TIS PAP AND HPV mRNA E6/E7 WITH REFLEX TO HPV 16,18/45 (03/06/2022 9:04 AM EDT) Clinical Information: [facility] COMMENT SEE COMMENT [facility] Comment: EXPLANATORY NOTE: ? The Pap is a screening test for cervical cancer. It is ?? not a diagnostic test and is subject to false negative ?? and false positive results. It is most reliable when a ?? satisfactory sample, regularly obtained, is submitted ?? with relevant clinical findings and history, and when ?? the Pap result is evaluated along with historic and ?? current clinical information. ?? COMMENT: This Pap test has been evaluated with computer assisted technology. [facility] Trucking Manager: SEE COMMENT [facility] Comment: ED, CT(ASCP) CT screening location: ?? [facility] ?? [address] [place] [address] ?? [place] [address] HPV nRNA E6/E7 Not Detected Not Detected [facility] Comment: Methodology: Intervention Nurse-Mediated Amplification This assay detects E6/E7 viral messenger RNA (mRNA) from 14 high-risk HPV types (16,18,31,33,35,39,45,51,52,56,58,59,66,68). ? The analytical performance characteristics of this assay have been determined by [employer]. The modifications have not been cleared or approved by the FDA. This assay has been validated pursuant to the CLIA regulations and is used for clinical purposes. ?? For additional information, please refer to http://education.[employer]/faq/UJV148z4 (This link if provided for information/ educational purposes only.) Interpretation/Re sult: Negative for intraepithelial lesion or malignancy. [facility] LMP: [facility] Prev. BX: NONE [facility]IVEN [facility] Prev. PAP: NONE [facility]IV[facility] SOURCE: None given [facility] Statement Of Adequacy: SEE COMMENT [facility] Comment: Satisfactory for evaluation. Endocervical/transformation zone component present. 03/06/2022 9:04 AM EDT Salima Smith CNM LAB PATHOLOGY ORDERABLES Final Result Performing Organization Address City/State/[facility] Co de Phone Number [facility] [address] from Last 3 Months or Most Recently Relevant to Health Maintenance Insurance [facility] , [address] [place] [address] Care Teams American Studies Professor Relationship Specialty Start Date End Date Faith Kern MD [address] [place] [address] PCP - General Family Medicine 01/15/20 Kimberley Guadalupe PharmD [address] [place] [id number] Pharmacist Internal Medicine 01/11/25
--- OUTSIDE RECORDS SUMMARY | 2025-03-17 08:27 | XMS_ITS | Encounter Summary ---
Author Organization [facility] Address [facility] [place] [address] Care Team Providers Care Grounds Worker Name Role Phone Veto Wong MD Primary Care Provider Unavail able Faith Kern Primary Care Provider Unavailabl e Encounter Details Date Type Department Care Team Description 11/01/2018 Hospital Medical Records [address] [place] [id number] [address] Social History Tobacco Use Types Packs/Day Years [...] on filedocumented in this encounter Care Teams Grounds Worker Relationship Specialty Start Date End Date Veto Wong MD PCP - General Internal Medicine 08/15/18 12/26/23 Faith Kern PCP - General Family Practice 12/27/23 documented as of this encounter
--- OUTSIDE RECORDS SUMMARY | 2025-03-17 08:27 | XMS_ITS | Encounter Summary ---
Author Organization [facility] Address [address] [place] [address] Care Team Providers Care Leather Dresser Name Role Phone Jayashree Monzon MD Primary Care Provider Veto Dobson MD Primary Care Provider Unavail able Faith Kern Primary Care Provider Unavailabl e Encounter Details Date Type Department Care Team Description 12/03/2017 Hospital Medical Records [address] [place] [address] Abstract, Provider Social History Tobacco Use Types [...] on filedocumented in this encounter Care Teams Leather Dresser Relationship Specialty Start Date End Date Jayashree Monzon MD PCP - General Internal Medicine 02/18/13 08/14/18 Veto Wong MD PCP - General Internal Medicine 08/15/18 12/26/23 Faith Kern PCP - General Family Practice 12/27/23 documented as of this encounter
--- OUTSIDE RECORDS SUMMARY | 2025-03-17 08:27 | XMS_ITS | Encounter Summary ---
Author Organization [facility] Address [facility] [place] [address] Care Team Providers Care Material Flow Engineer Name Role Phone Jayashree Monzon MD Primary Care Provider Veto Dobson MD Primary Care Provider Unavail able Faith Kern Primary Care Provider Unavailabl e Encounter Details Date Type Department Care Team Description 02/22/2016 Refill Adult Medicine [address] [address] Jayashree Monzon MD Social History Tobacco Use [...] on filedocumented in this encounter Care Teams Material Flow Engineer Relationship Specialty Start Date End Date Jayashree Monzon MD PCP - General Internal Medicine 02/18/13 08/14/18 Veto Wong MD PCP - General Internal Medicine 08/15/18 12/26/23 Faith Kern PCP - General Family Practice 12/27/23 documented as of this encounter
--- OUTSIDE RECORDS SUMMARY | 2025-03-17 08:27 | XMS_ITS | Clinical Summary ---
Author Organization [facility] Address [address] [place] [address] Care Team Providers Care Lodging House Keeper Name Role Phone ConchaEdeFaith Primary Care Provider Unavailabl e Allergies Active Allergy Reactions Severity Noted Date Comments Lisinopril 06/10/2024 Shellfish-Derived Products Hives/Urticaria 11/2009 Medications Medication Sig Dispensed Refills Start Date End Date Status FREESTYLE LANCETS Misc Apply 1 Each topically 4 times daily. 400 Each 1 02/23/2016 Active Blood Glucose Calibration (FREESTYLE CONTROL SOLUTION) Liquid 1 Drop by In Vitro route See Admin Instructions. Use with each new bottle of strips 1 Each 4 02/23/2016 Active FREESTYLE TEST STRIPS strip Use to test blood sugar 3 times daily. 100 Each 3 07/30/2018 Active Insulin Glargine (LANTUS SOLOSTAR) 100 UNIT/ML Solution Pen-injector INJECT 45 UNITS DIRECTED AT BEDTIME. 15 Device 5 09/23/2018 Active chlorthalidone (HYGROTEN) 25 MG tablet Take 1 Tab by mouth daily for 360 days. 30 Tab 11 01/15/2019 Active Fenofibrate 145 MG Tab TAKE 1 TABLET BY MOUTH EVERY DAY 30 Tab 0 12/24/2019 Active amlodipine (NORVASC) 5 MG tablet TAKE 1 TABLET BY MOUTH EVERY DAY 30 Tab 0 12/24/2019 Active LOSARTAN POTASSIUM OR Take by mouth. 0 Active aspirin 81 MG chewable tablet Take 1 Tablet by mouth daily. 0 Active CLONIDINE-CHLORTHALI DONE OR Take by mouth. 0 Active Cetirizine HCl 10 MG Cap Take by mouth. 0 Active Dapagliflozin Propanediol 10 MG Tab Take by mouth. 0 Active clotrimazole (LOTRIMIN) 1 % cream Apply to skin and toenails daily for 12 weeks 45 g 3 06/10/2024 Active Active Problems Patient Care Coordination No te Formatting of this note is d ifferent from the original. Checking Your Blood Sugars Please check your blood sugars every day. Please check your sugars at the following times of day: before breakfast Your Blood Sugar Goals Pre Meal: 90-130 2 hours after meals: 110-160 Bedtime: 110-150 Use the Results ?? Bring your glucometer to every appointment ?? Write your fingerstick blood sugars down on a log sheet or record book. Bring them to your appointment ?? Look for patterns in the numbers. The results help you and your provider make decisions about your diabetes treatment plan. Your Results and your Goals Your Result / Date of Completion Your Goal / How Often to Assess Component Value Date HGBA1C 8.9 07/30/2015 Less than 7%--- 2-4 times per year BP Readings from Last 1 Encounters: 02/22/16 140/62 Less than 130/80--- once per year Component Value Date LDL 140 12/30/2012 LDL less than 100--- once per year Component Value Date MALBUR 958.6 07/30/2015 Less than 30--- once per year Wt Readings from Last 1 Encounters: 02/22/16 144 lb (65.318 kg) Your goal weight by next visit: 130 --- reassess 2-4 times a year Health Maintenance Due Topic Date Due ? ? Baseline Health Exam 40-64 10/18/2013 ? ? Diabetes: Annual Foot Exam 02/26/2014 ? ? Diabetes: Annual Care Plan 02/26/2014 ? ? Mammogram 10/01/2014 ? ? Diabetes: Blood Sugar Control Test (Hgba1c) 11/29/2015 ? ? Diabetes: Annual Eye Exam 01/15/2016 Your Action Plan Check blood glucose as directed and write down all results. Continue to work on weight loss with a goal of losing 2-4 pounds per month Increase physical activity Contact me if you experience any barriers to care such as inability to purchase your medication, difficulty getting to your appointments or difficulty understanding your care plan When to Call your Healthcare Provider If your blood sugar falls below 70 and you do not know why or you become unconscious If you are sick and unable to take liquids because or nausea or vomiting If you have a fever over 101 If your blood sugar is 300 or higher on greater than 3 separate occasions during the same week If you are just unsure what to do Educational Resources [place] Diabetes Association (www.diabetes.org) Centers for Disease Control and Prevention (www.cdc.gov/diabetes) This care plan was created in collaboration with Susannah Herman on 02/22/2016 Problem Noted Date Uncontrolled type 2 diabetes mellitus with microalbuminuria, with long-term current use of insulin 2018 Uncontrolled type 2 diabetes with eye co mplications 2018 Primary open angle glaucoma 05/01/2016 Overview: Dr. 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 Simms 01/17/15 Neuropathy of both feet 02/26/2013 Diabetes mellitus with neuropathy 2012 Helicobacter pylori gastritis 02/09/2013 Colon polyp 01/26/2013 Overview: Serrated (hyperplastic) polyp @35cm. repeat colonoscopy in 10 years Gastritis 01/26/2013 Insomnia 04/14/2012 Microalbuminuria 09/11/2010 Hyperlipidemia LDL goal <70 12/25/2007 Mixed dyslipidemia 01/31/2006 Overview: High triglycerides and LDL fatty liver, elevated ast/alt, neg hep p francesca 2000 01/29/2006 Overview: IMO update Seborrheic dermatitis 01/29/2006 hypertension 01/29/2006 Resolved Problems Problem Noted Date Resolved Date diabetes mellitus Type 2 with renal manifestatio ns 01/29/2006 2018 Immunizations Name Administration Dates Next Due Influenza (> 6 Months) 07/22/2018,08/11/2009 Pneumoccoccal(Adult) Polysaccharide PPSV23 03/18 Tdap 03/11/2009 Family History Medical History Relation Name Comments Cancer, Other Father lymph nodes Diabetes Father Cataract Mother Glaucoma Mother Hypertension Mother gluacoma Blindness Negative Hx CA Breast Negative Hx CA Ovarian Negative Hx Macular Degeneration Negative Hx Strabismus Negative Hx Uterine Cancer Negative Hx Relation Name Status Comments Father Mother Social History Tobacco Use Types Packs/Day Years Used Date Smoking Tobacco: Never Smokeless Tobacco: Never Alcohol Use Standard Drinks/Week Comments Yes 0 (1 standard drink = 0.6 oz pur e alcohol) 1 drink per yr Sex Assigned at Date Recorded Not on file Last Filed Vital Signs Vital Sign Reading Time Taken Comments Blood Pressure 136/84 02/11/2019 12:46 PM EDT R arm Pulse 92 02/11/2019 12:46 PM EDT Temperature 36.6 ??C (97.9 ??F) 01/15/2019 2:19 PM ES T Respiratory Rate 16 02/11/2019 12:46 PM EDT Oxygen Saturation 99% 01/26/2013 12:47 PM EDT Inhaled Oxygen Concentration - - Weight 65.8 kg (145 lb) 02/11/2019 12:46 PM EDT Height 162.6 cm (5' 4 ) 02/11/2019 12:46 PM EDT Body Mass Index 24.89 02/11/2019 12:46 PM EDT Plan of Treatment Health Maintenance Due Date Last Done Comments Covid-19 Vaccine (#1) 01/22/1966 HEPATITIS C SCREENING 1983 BASELINE HEALTH EXAM 40-64 10/18/2013 10/18/2011 SHINGLES VACCINE (1 of 2) 2015 DIABETES: ANNUAL EYE EXAM 04/30/20172015, 01/14/2015, 04/03/2013, Additional history exists CERVICAL CANCER SCREENING 01/10/20182014, 09/29/2012, 02/17/2010, Additional history exists DTAP/TDAP/TD (2 - Td or Tdap) 03/11/2019 03/11/2009 DIABETES: BLOOD SUGAR CONTRO L TEST (HGBA1C) 04/18/2019 01/16/2019, 07/23/2018, 10/11/2017, Additional history exists DIABETES/HEART DISEASE: SABIHA AL CHOLESTEROL (LDL) 01/17/2020 01/16/2019, 07/23/2018, 10/11/2017, Additional history exists DIABETES: ANNUAL URINE PROTE IN TEST (MICROALBUMIN) 01/17/2020 01/16/2019, 07/23/2018, 10/11/2017, Additional history exists DIABETES: ANNUAL FOOT EXAM 02/12/202002/11, 02/26/2013, 10/18/2011, Additional history exists MAMMOGRAM 11/28/2020 11/28/2019, 07/13, 10/01/2013, Additional history exists COLON CANCER SCREENING 01/26/2023 01/26/2013 BMI CHECK/ADVISE 11/11/2024 01/15/2019, 03/2016, 10/22/2015 INFLUENZA (Season Ended) 2025 023, 08/02/2022, 08/10/2020, Additional history exists PNEUMOCOCCAL VACCINE FOR HIG H RISK PATIENTS Completed 12/03/2017, 03/18/2009 Care Teams Lodging House Keeper Relationship Specialty Start Date End Date Faith Kern PCP - General Family Practice 12/27/23
--- OUTSIDE RECORDS SUMMARY | 2025-03-17 08:27 | XMS_ITS | Encounter Summary ---
Author Organization [facility] Address [address] [place] [address] Care Team Providers Care Electrical Transmission Engineer Name Role Phone Jayashree Monzon MD Primary Care Provider Veto Dobson MD Primary Care Provider Unavail able Faith Kern Primary Care Provider Unavailabl e Reason for Visit * Reason Onset Date Comments medication problems 02/17/2018 Encounter Details Date Type Department Care Team Description 02/17/2018 Telephone Adult Medicine [address] [address] Jayashree Monzon MD medication problems Social History Tobacco Use Types Packs/Day Years Used Date Smoking Tobacco: Never Smokeless Tobacco: Never Alcohol Use Standard Drinks/Week Comments Yes 0 (1 standard drink = 0.6 oz pur e alcohol) 1 drink per yr Sex Assigned at Date Recorded Not on file documented as of this encounter Miscellaneous Notes * Telephone Encounter - Whitley Terrazas M.A. - 02/18/2018 1:52 PM EDT Do you have fax that came in for this request? * Telephone Encounter - Azul Toledo - 02/17/2018 11:44 AM EDT Incoming FAX states Pharmacy is looking to close potential gap in therapy. documented in this encounter Plan of Treatment Not on file documented as of this encounter Visit Diagnoses Not on filedocumented in this encounter Care Teams Electrical Transmission Engineer Relationship Specialty Start Date End Date Jayashree Monzon MD PCP - General Internal Medicine 02/18/13 08/14/18 Veto Wong MD PCP - General Internal Medicine 08/15/18 12/26/23 Faith Kern PCP - General Family Practice 12/27/23 documented as of this encounter
--- OUTSIDE RECORDS SUMMARY | 2025-03-17 08:27 | XMS_ITS | Encounter Summary ---
Author Organization [facility] Address [facility] [place] [address] Care Team Providers Care Information Technology Associate Name Role Phone Veto Wong MD Primary Care Provider Unavail able Faith Kern Primary Care Provider Unavailabl e Encounter Details Date Type Department Care Team Description 12/31/2019 Release of Information Medical Records [address] [place] [id number] Abstract, Provider Social History Tobacco Use Types [...] on filedocumented in this encounter Care Teams Information Technology Associate Relationship Specialty Start Date End Date Veto Wong MD PCP - General Internal Medicine 08/15/18 12/26/23 Faith Kern PCP - General Family Practice 12/27/23 documented as of this encounter
--- OUTSIDE RECORDS SUMMARY | 2025-03-17 08:27 | XMS_ITS | Encounter Summary ---
Author Organization [facility] Address [address] [place] [address] Care Team Providers Care Lunch Counter Manager Name Role Phone Jayashree Monzon MD Primary Care Provider Veto Dobson MD Primary Care Provider Unavail able Faith Kern Primary Care Provider Unavailabl e Encounter Details Date Type Department Care Team Description 12/03/2017 Hospital Medical Records [address] [place] [address] Abstract, Provider Social History Tobacco Use Types [...] on filedocumented in this encounter Care Teams Lunch Counter Manager Relationship Specialty Start Date End Date Jayashree Monzon MD PCP - General Internal Medicine 02/18/13 08/14/18 Veto Wong MD PCP - General Internal Medicine 08/15/18 12/26/23 Faith Kern PCP - General Family Practice 12/27/23 documented as of this encounter
--- OUTSIDE RECORDS SUMMARY | 2025-03-17 08:27 | XMS_ITS | Encounter Summary ---
Author Organization [facility] Address [facility] [place] [address] Care Team Providers Care Banking Services Advisor Name Role Phone Jayashree Monzon MD Primary Care Provider Veto Dobson MD Primary Care Provider Unavail able Faith Kern Primary Care Provider Unavailabl e Encounter Details Date Type Department Care Team Description 03/20/2016 Jig Grinder Set Up Operator Report Medical Records [address] [place] [address] Abstract, Provider Social History Tobacco Use Types [...] on filedocumented in this encounter Care Teams Banking Services Advisor Relationship Specialty Start Date End Date Jayashree Monzon MD PCP - General Internal Medicine 02/18/13 08/14/18 Veto Wong MD PCP - General Internal Medicine 08/15/18 12/26/23 Faith Kern PCP - General Family Practice 12/27/23 documented as of this encounter
--- OUTSIDE RECORDS SUMMARY | 2025-03-17 08:27 | XMS_ITS | Encounter Summary ---
Author Organization [facility] Address [address] [place] [address] Care Team Providers Care Journeyman Pipefitter Name Role Phone Jayashree Monzon MD Primary Care Provider Veto Dobson MD Primary Care Provider Unavail able Faith Kern Primary Care Provider Unavailabl e Encounter Details Date Type Department Care Team Description 12/02/2017 Hospital Medical Records [address] [place] [id number] Jayashree Monzon MD Social History Tobacco Use [...] on filedocumented in this encounter Care Teams Journeyman Pipefitter Relationship Specialty Start Date End Date Jayashree Monzon MD PCP - General Internal Medicine 02/18/13 08/14/18 Veto Wong MD PCP - General Internal Medicine 08/15/18 12/26/23 Faith Kern PCP - General Family Practice 12/27/23 documented as of this encounter
--- OUTSIDE RECORDS SUMMARY | 2025-03-17 08:27 | XMS_ITS | Encounter Summary ---
Author Organization [facility] Address [address] [facility] [address] [place] [address] Phone Care Team Providers Care Fuel Verification Technician Name Role Phone Faith Kern MD Primary Care Provider [phone] Reason for Visit * Reason Comments Med Refill Encounter Details Date Type Department Care Team (Late st Contact Info) Description 11/28/2024 Refill [facility] [address] [place] [address] Nik Mckeon MD [address] [facility] [address] [place] [address] Social History Tobacco Use Types [...] on filedocumented in this encounter Care Teams Fuel Verification Technician Relationship Specialty Start Date End Date Faith Kern MD [address] [place] [id number] PCP - General Family Medicine 07/24/21 documented as of this encounter
[2025-03-17 14:23] LABS: Anion Gap 14 (12-20); Blood Urea Nitrogen 46 mg/dL (9-16); Calcium 9.3 mg/dL (8.4-10.2); Carbon Dioxide 25 mmol/L (22-29); Chloride 110 mmol/L (96-108); Estimated Glomerular Filt Rate 29; Glucose Random 157 mg/dL (60-115); Phosphorus 3.1 mg/dL (2.7-4.5); Potassium 5.7 mmol/L (3.3-5.1); Sodium 143 mmol/L (135-145)
[2025-03-17 14:53] LABS: Creatinine Urine 55.17 mg/dL; Total Protein Urine Random 24 mg/dL (<12)
[2025-03-17 14:59] LABS: Parathyroid Hormone Intact 198.8 pg/mL (8.7-77.1)
== END 2025-03-17 08:20 | disposition home or self-care (01) ==
LOC: HO.CHCLDS 08:19
PROVIDERS: Visit Provider Internal Medicine Hypertension Specialist
DX: N18.4 Chronic kidney disease, stage 4 (severe) (principal)
CPT/HCPCS: 36415; 80048; 82570; 83970; 84100; 84156

== ENCOUNTER 2025-03-22 14:58 | Outpatient (AMB) | payer OTHER, SELFPAY ==
--- NOTE | 2025-03-22 14:59 | HO.NEPHOV ---
Vital Signs 03/22/25 15:00 Height 5 ft 4 in Weight 143 lb BMI 24.5 BP 140/62 H Blood Pressure Location Rt brachial Position Sitting Pulse 100 Pulse Source Pulse Oximeter Pulse Oximetry (%) 98 Oxygen Delivery Method Room Air Intake Visit Reasons: CKD Electroplating Worker Required: No Accompanied by: Spouse Allergies lisinopril Allergy (Severe, Verified 03/22/25 15:01) Hives, itchiness shellfish derived [SHELLFISH DERIVED] Allergy (Unknown, Verified 03/22/25 15:01) HIVES Medication List - Last Reconciled 03/22/25 by Paco Burnham MD amlodipine 10 mg PO DAILY aspirin 81 mg PO DAILY atorvastatin 40 mg PO DAILY blood sugar diagnostic (FreeStyle Lite Strips) As directed chlorthalidone 12.5 mg (1/2 x 25 mg) PO DAILY clonidine HCl 0.1 mg PO BID dapagliflozin propanediol (Farxiga) 5 mg PO QAM dorzolamide 2% 1 drp ophthalmic (eye) BID dulaglutide (Trulicity) mg subcut QWEEK hydroxyzine HCl 25 - 50 mg PO DAILY PRN insulin glargine (Lantus Solostar U-100 Insulin) 26 units subcut BEDTIME lancets (TRUEplus Lancets) As directed latanoprost 0.005% 1 drp ophthalmic (eye) BEDTIME valsartan 80 mg PO DAILY HPI Comments Details: 58-year-old woman with a history of CKD in a setting of diabetes mellitus. Tolerating Farxiga A1C down to 9.3% Mild gluacoma- s/p dilatation. 11/30/24 Blood sugar elevated ; Gained 7-8 lbs A1C > 10 Started on Trulicity Underwent stress test- waiting for cardiology appt. 03/22/25 History of Present Illness The patient is a 59-year-old female presenting with management of Chronic Kidney Disease (CKD) and hyperkalemia follow-up. She has a prior diagnosis of Type 2 Diabetes Mellitus, which is being managed, and recently discontinued fenofibrate due to concerns over its impact on renal function. Her potassium levels have been high, potentially linked to her dietary intake, specifically mentioning the consumption of grapes. The improvement in GFR from 25% to 29% reflects a modest enhancement in kidney function. She has not noted any related symptoms such as dyspnea, gastrointestinal upset, or urinary difficulties. The patient's recent weight loss of 5 pounds has been due to lifestyle modifications including heightened physical activity and a more regulated diet. [facility] Medical History Epidermal cyst Diabetes mellitus Surgical History History of removal of cyst H/O section Family History Family/Other Cancer of unknown origin Paternal Aunt Colon cancer Paternal Aunt Colon cancer Father Liver cancer Social History Alcohol intake: never Patient Tobacco Use Status: Never used Tobacco Physical Exam Vital Signs: Last Vital Signs Pulse 100 03/22/25 15:00 BP 140/62 H 03/22/25 15:00 Pulse Ox 98 03/22/25 15:00 Oxygen Delivery Method Room Air 03/22/25 15:00 BMI result Body Mass Index 24.5 Comfortable Neck supple no JVD. Lungs entry equal no rales. Heart S1-S2 heard no gallop or rub. Abdomen soft nontender. Neuro alert awake oriented. No asterixis. Extremities no edema. Results Reviewed Nephrology Results: Hgb 10.7 g/dl (12.0-16.0) L 11/26/24 WBC 5.6 X10*3/uL (4.8-10.8) 11/26/24 Plt Count 227 X10*3/uL (160-400) 11/26/24 Sodium 143 mmol/L (135-145) 03/17/25 Potassium 5.7 mmol/L (3.3-5.1) H 03/17/25 Chloride 110 mmol/L (96-108) H 03/17/25 Carbon Dioxide 25 mmol/L (22-29) 03/17/25 BUN 46 mg/dL (9-16) H 03/17/25 Creatinine 1.80 mg/dL (0.5-1.4) H 03/17/25 Calcium 9.3 mg/dL (8.4-10.2) 03/17/25 Phosphorus 3.1 mg/dL (2.7-4.5) 03/17/25 PTH Intact 198.8 pg/mL (8.7-77.1) H 03/17/25 Urine Creatinine 55.17 mg/dL 03/17/25 Assessment & Plan Assessment & Plan (1) CKD (chronic kidney disease) stage 4, GFR 15-29 ml/min: Code(s): N18.4 - Chronic kidney disease, stage 4 (severe) Category: Medical Plan 58-year-old woman with CKD in a setting of longstanding diabetes mellitus. And hypertension Creatinine close to baseline Keep Chlorthalidone 12.5 Goal is to slow the progression of kidney disease Continue to avoid nephrotoxic agents including NSAIDs Discussed importance of control of glucose BP is well controlled On SGLT-2 inhibitor Mild SHPT No indication for Vit D analog Mild anemia No indication for DANIEL yet I have arranged for the patient to undergo a repeat blood test to check her potassium levels, particularly given her consumption of grapes which might be affecting her hyperkalemia. If the potassium level remains elevated, I will consider prescribing Lokelma to manage it. I advised the patient to ensure adequate hydration and to continue monitoring her dietary intake of potassium-rich foods. Given the improved GFR, we will maintain her current treatment plan without reinstating fenofibrate. Additionally, I emphasized the importance of regular monitoring of kidney function and electrolyte levels, with a plan for follow-up in three months unless necessary sooner. Patient Instructions - Drink plenty of water daily. - Reduce grape intake to manage potassium levels. - Return for follow-up blood test for potassium level check. - Monitor kidney function regularly as discussed. - Return for follow-up in three months, or sooner if symptoms occur. - Maintain dietary restrictions as advised. Orders: Orders Blood Urea Nitrogen 3 Months N18.4 - Chronic kidney disease, stage 4 (severe) Basic Metabolic Panel Today N18.4 - Chronic kidney disease, stage 4 (severe) Coding Level of Care Code Est Pt Level 4 (35583) Diagnoses CKD (chronic kidney disease) stage 4, GFR 15-29 ml/min N18.4
[2025-03-22 15:00] VITALS: BP 140/62; PULSE 100; O2SAT 98; BMI 24.5
--- OUTSIDE RECORDS SUMMARY | 2025-03-22 15:03 | XMS_ITS | Encounter Summary ---
Author Organization [employer] Address [address] [place] [address] Care Team Providers Care Ruby On Rails Software Developer Name Role Phone Faith Kern MD Primary Care Provider [phone] Kimberley Guadalupe PharmD Unavailable Encounter Details Date Type Department Care Team ([facility] st Contact Info) Description 10/16/2023 Telephone [facility] [address] [place] [address] Faith Kern MD [address] [place] [address] Social History Tobacco Use Types Packs/Day Years [...] received at this time from Aislinn at [facility]. Patient glucose 356 as resulted today at 2pm. Fasting duration is not known prior to lab draw. Please update PCP and follow with patient as indicated. * Telephone Encounter - Amina Mars LPN - 10/16/2023 2:51 PM EST Critical result line call received at this time from Aislinn at [facility]. Patient glucose 356 as resulted today at 2pm. Fasting duration is not known prior to lab draw. Please update PCP and follow with patient as indicated. documented in this encounter Plan of Treatment Upcoming Encounters Date Type Department Care Team (Late st Contact Info) Description 05/04/2025 8:30 AM EDT Office Visit [facility] [address] [place] [address] Faith Kern MD [address] [place] [address] 08/16/2025 3:00 PM EDT Medication Management [facility] [address] [facility] [place] [address] Kimberley Guadalupe PharmD [address] [place] [address] documented as of this encounter Goals Goal [...] documented as of this encounter Care Teams Ruby On Rails Software Developer Relationship Specialty Start Date End Date Faith Kern MD [address] [place] [address] PCP - General Family Medicine 01/15/20 Kimberley Guadalupe PharmD [address] [place] [address] Pharmacist Internal Medicine 01/11/25 documented as of this encounter
--- OUTSIDE RECORDS SUMMARY | 2025-03-22 15:04 | XMS_ITS | Encounter Summary ---
Author Organization [facility] Address [address] [place] [address] Phone Care Team Providers Care Regulatory Affairs Associate Name Role Phone Faith Kern MD Primary Care Provider [phone] Encounter Details Date Type Department Care Team (Late st Contact Info) Description 10/24/2021 Documentation Only [facility] [address] [place] [address] Emir Cisse MD Social History [...] on filedocumented in this encounter Care Teams Regulatory Affairs Associate Relationship Specialty Start Date End Date Faith Kern MD [address] [place] [address] PCP - General Family Medicine 07/24/21 documented as of this encounter
--- OUTSIDE RECORDS SUMMARY | 2025-03-22 15:04 | XMS_ITS | Clinical Summary ---
Author Organization [employer] Address [address] [facility] 7t [place] [address] Care Team Providers Care Registered Nurse Float Pool Name Role Phone Faith Kern MD Primary Care Provider [phone] Kimberley Guadalupe PharmD Unavailable [phone] Allergies Active Allergy Reactions Criticality Noted Date [...] ONE DROP IN EACH EYE TWICE DAILY 022 Active latanoprost (Xalatan) 0.005 % ophthalmic solution [...] complication, with long-term current use of insulin ([facility]) Check sugars BID 1 each 023 Active acetaminophen (Tylenol 8 Hour) 650 MG ER tablet TAKE ONE TABLET EVERY 8 HOURS NEEDED 60 tablet 5 024 Active cetirizine (ZyrTEC) 10 MG tablet TAKE [...] by mouth Once per day. 30 tablet 11 Active Lancets 33G misc Test blood sugar up to 3 times daily 100 each Active Aspirin Adult Low Strength 81 MG EC tablet TAKE ONE TABLET EVERY MORNING 30 tablet 5 Active amLODIPine (Norvasc) 10 MG tablet TAKE ONE TABLET EVERY MORNING 30 tablet 5 Active Trulicity 0.75 MG/0.5ML solution auto-injector INJECT ONE PEN (=0.75MG) SUBCUTANEOUSLY ONCE A WEEK DIRECTED 2 mL 2 Active insulin pen needle (Pentips) 32G x 4 mm misc USE ONE EVERY DAY. 100 each 3 Active FREESTYLE LITE test stripIndicatio ns:Type 2 diabetes mellitus without complication, with long-term current use of insulin ([facility]) TEST BLOOD SUGAR THREE TIMES DAILY 100 strip 1 Active FREESTYLE LITE test strip 1 each by Other route 3 times daily. 100 each 024 2024 Discontinued Pentips 32G X 4 MM misc USE ONE EVERY DAY. 100 each 3 024 2024 Discontinued(R eorder (will not trigger notification to Pharmacy)) Aspirin Adult Low Strength 81 MG EC tablet TAKE ONE TABLET EVERY MORNING 30 tablet 5 024 2024 Discontinued amLODIPine (Norvasc) 10 MG tablet TAKE ONE TABLET EVERY MORNING 30 tablet 5 024 2024 Discontinued Dulaglutide (Trulicity) 0.75 MG/0.5ML solution auto-injector Inject 0.75 mg under the skin 1 (one) time per week. 2 mL 2 025 2024 Discontinued Continuous Glucose Barrel Raiser (FreeStyle [place] 2 [place]) device Scan sensor every 8 hours 1 [...] Overview (11/19/2022): Dr. Simms 2015 Dr. Simms 2015 Nonproliferative diabetic retinopathy 01/18/2015 Overview (11/19/2022): Dr. [...] Type Department Care Team Description 03/17/2025 Refill [facility] [address] [place] [address] Faith Kern MD Type 2 diabetes mellitus without complication, with long-term current use of insulin ([facility]) 03/11/2025 Refill [facility] [place] Alek Souza [phone] Faith Kern MD 03/04/2025 Refill [facility] [address] [facility] [place] Alek Sandoval-Faith Pizarro MD 02/27/2025 Refill [facility] [address] [facility] [place] Alek Hackett2 Faith Kern MD 02/25/2025 9:45 AM EDT Procedure Visit [facility] [address] [facility] [place] [address] Faith Kern MD Adhesive capsulitis of right shoulder (Primary Dx); Diabetes mellitus due to underlying condition without complication, with long-term current use of insulin ([facility]) 02/25/2025 Travel 02/22/2025 Travel 01/26/2025 Telephone [facility] [address] [place], [place] [phone] Kimberley Guadalupe, PharmD 01/11/2025 Travel from Last 3 Months Immunizations Name Administration [...] 8:30 AM EDT Office Visit [facility] [address] [place] [address] Faith Kern MD [address] [place] [address] 08/16/2025 3:00 PM EDT Medication Management [facility] [address] [place] [address] Kimberley Guadalupe, PharmD [address] [place] [address] Health Maintenance Due Date Last Done Comments CT Colonography 1965 Colonoscopy 1965 FIT 1965 FOBT 1965 HIV Screening 1965 Sigmoidoscopy 1965 Eye Exam 1975 Alcohol/Substance Use Screening 1977 Hepatitis C Screening 1983 Hepatitis A Vaccines (1 of 2 - Risk 2-dose series) 1984 Diabetes: Foot Exam 06/21/2024 06/21/2023, COVID-19 Vaccine ( season) 2024 10/13/2021, 12/09/2020, 11/09/2020 Pap Smear 03/06/2025 03/06/2022 Mammogram 03/21/2025 03/21/2024, 0506/2023, 03/18/2023, Additional history exists SDOH Screening 05/13/2025 [...] complication, with long-term current use of insulin ([facility]) FL ARTHROCENTESIS ASPIR&/INJ MAJOR JT/BURSA W/O US Routine 02/25/2025 9:46 AM EDT Adhesive capsulitis of right shoulder POCT GLYCATED HEMOGLOBIN, TOTAL Routine 02/22/2025 3:13 PM EDT Diabetes mellitus due to underlying condition without complication, with long-term current use of insulin ([facility]) LIPID PANEL, STANDARD Routine 11/26/2024 9:47 AM [...] TEST ENTER/EDIT OR DERABLES Final Result * FL ARTHROCENTESIS ASPIR&/INJ MAJOR JT/BURSA W/O US (02/25/2025 [...] yes ?Risks discussed: ??Pain ??Alternatives discussed: ??Referral Majestic protocol: ??Procedure explained and questions answered to [...] - 6.0 % QC Media Lot # [id number] Lot# Expiration Date Blood 02/22/2025 3:13 PM EDT Faith Kern MD POINT OF CARE TEST ENTER/EDIT OR DERABLES Final Result * (ABNORMAL) Lipid Panel, Standard (11/26/2024 9:47 AM EST) Triglycerides 208(H) <150 mg/dL [facility] Comment:Desirable Triglyceri de: less than 150 mg/dLBorderline High Triglyceride 150-199 mg/dLHigh Triglyceride: 200-499 mg/dLVery High Triglyceride: greater than or equal to 5OO mg/dL Cholesterol 168 <200 mg/dL [facility] Comment:Desirable Cholestero l: less than 200 mg/dLBorderline High Cholesterol: 200-239 mg/dLHigh Cholesterol: greater than 239 mg/dL LDL Cholesterol Calculated 83 <100 mg/dL [facility] Comment:Desirable LDL: less than 100 mg/dLNear Optimal/Above Optimal LDL: 110- 129 mg/dLBorderline High LDL: 130-159 mg/dLHigh LDL: 160-189 mg/dLVery High LDL: greater than or equal to 190 mg/dL HDL Cholesterol 44 >40 mg/dL [facility] Comment:Desirable HDL: great er than 40 mg/dL Note: This HDL assay may give artificially low results in patients with liver disease. Blood Venous blood specimen / Unknown 11/26/2024 9:47 AM EST 11/26/2024 2:00 PM EST us Faith Kern MD LAB BLOOD ORDERABLES Final Resul t [facility] [address] [facility] [place] [address] [phone] * BI Mammogram Screening Tomosynthesis Bilateral (03/21/2024 8:30 AM EDT) Anatomical Region Laterality Modality Breast Bilateral Mammography 03/21/2024 8:30 AM EDT Narrative 04/06/2024 1:04 PM EDT ? [facility] ? [address] ?[place] [address] ? Mammography Report ? Signed ? Patient: Virgil,Susannah ?MR#: [id number] ?? 1 ? : 1965 ?Acct:[id number] ? Age/Sex: 58 / F ?ADM Date: 05/11/24 ? Loc: HO.MAMMO ? Attending Dr: Faith S Concha MD ? Ordering Physician: Concha,Faith S MD ?Results: 1Negati ?? ve ? Date of Service: 03/21/24 ?Follow Up: 1 Year From Orig ?? inal Mammogram ? Procedure(s): MM tomosynthesis screening BI ?? Accession Number(s): [id number] ? cc: Faith Kern MD ? EXAMINATION: [...] in OV> ? 04/06/24 1259 ? DD/ 9 ? TD/TT: ? Power Equipment Technology Instructor: ? Procedure Note Florin Bourne - 04/06/2024 [facility] [address] [place] [address] Dr. Jones, [place]E [address] Mammography Report Signed Patient: Kate HermanMarzenaR#: [id number] 1 : 1965Acct:[id number] Age/Sex: 58 / FADM Date: 03/21/24 Loc: HO.MAMMO Attending Dr: Faith Kern MD Ordering Physician: Faith Kern MDResults: 1Negati ve Date of Service: 03/21/24Follow Up: 1 Year From Orig inal Mammogram Procedure(s): MM tomosynthesis screening BI Accession Number(s): [id number] cc: Faith Kern MD EXAMINATION: MM SCREENING [...] in OV> 04/06/24 1259 DD/ 0830 TD/TT: Power Equipment Technology Instructor: Faith Kern MD IMG BI PROCEDURES Final Result * Cologuard?? colon cancer screening (01/19/2024 4:30 PM EDT) Cologuard Result Negative Negative 01/26/20 8:56 AM EDT [facility] (CLIA #:[id number]) Comment: NEGATIVE TEST RESULT. A negative Cologuard [...] screened with both Cologuard and colonoscopy. (Joel Connor et al, N Engl J Med 2014;370(14):1286- 1297) The normal value (reference range) for this assay is negative. COLOGUARD RE-SCREENING RECOMMENDATION: Periodic colorectal cancer screening is an important part of preventive healthcare for asymptomatic individuals at average risk for colorectal cancer. ??Following a negative Cologuard result, the [place] Cancer Society and U.S. Multi-Society Task Force screening guidelines recommend a Cologuard re-screening interval of 3 years. References: [place] [employer] Guideline for Colorectal Cancer Screening: https://www.cancer.org/cancer/wqccp-pzkxwl-tgszav/rsjgqptvz-cishxatlk-nqagvrh/ac s-rec ommendations.html.; Misael AGEE, Bola NOBLE, Peace EvansK, Colorectal Cancer Screening: Recommendations for Physicians and Patients from the U.S. Multi-Society Task Force on Colorectal Cancer Screening , Am J Gastroenterology 2017; 112:9828-1400. TEST DESCRIPTION: Composite algorithmic analysis of stool [...] (Joel Jacobo al, N Engl J Med 2014;370(14):7102-7084.) Cologuard may produce a false negative or false positive result (no colorectal cancer or precancerous polyp present at colonoscopy follow up). A negative Cologuard test result does not guarantee the absence of CRC or advanced adenoma (pre-cancer). The current Cologuard screening interval is every 3 years. ([place] Cancer Society and U.S. Multi-Society Task Force). Cologuard performance data in a 10,000 patient pivotal study using colonoscopy as the reference method can be accessed at the following location: www.HomeJab.MavenHut/results. Additional description of the Cologuard test process, warnings and precautions can be found at www.HealthWyserd.MavenHut. Stool specimen (specimen) 01/19/2024 4:30 PM EDT 01/22/2024 2:01 PM EDT us Faith Kern MD LAB MOLECULAR DIAGNOSTICS ORDERA BLES Final Result [facility] (CLIA #:[id number]) [address] [place] [address], * THINPREP TIS PAP AND HPV mRNA E6/E7 WITH REFLEX TO HPV 16,18/45 (03/06/2022 9:04 AM EDT) Clinical Information: [facility] [employer] [facility] COMMENT SEE COMMENT [facility] ON [...] has been evaluated with computer assisted technology. [employer] [facility] Department Secretary: SEE COMMENT [facility] Comment: ED, CT(ASCP) CT screening location: ?? [facility] ?? [address] [place] [address] ?? [place], [place] [address] HPV nRNA E6/E7 Not Detected Not Detected [facility] Comment: Methodology: Safety Clothing And Equipment Developer-Mediated Amplification This assay detects E6/E7 viral messenger RNA (mRNA) from 14 high-risk HPV types (16,18,31,33,35,39,45,51,52,56,58,59,66,68). ? The analytical performance characteristics of this assay have been determined by [employer]. The modifications have not been cleared or approved by the FDA. This assay has been validated pursuant to the CLIA regulations and is used for clinical purposes. ?? For additional information, please refer to http://education.Remote/faq/JOO703y9 (This link if provided for information/ educational purposes only.) Interpretation/Re sult: Negative for intraepithelial lesion or malignancy. [facility] LMP: MIRENA IUD [facility] Prev. BX: NONE GIVEN [facility] Prev. PAP: NONE GIVEN [facility] SOURCE: None given [facility] Statement Of Adequacy: [facility]MENT [facility] Comment: Satisfactory for evaluation. Endocervical/transformation zone component present. 03/06/2022 9:04 AM EDT Salima Smith CNM LAB PATHOLOGY ORDERABLES Final Result Performing Organization Address City/State/[facility] Co de Phone Number [facility] [address] from Last 3 Months or Most Recently Relevant to Health Maintenance Insurance Care Teams Registered Nurse Float Pool Relationship Specialty Start Date End Date Faith Kern MD [address] [place] [address] PCP - General Family Medicine 01/15/20 Kimberley Guadalupe PharmD [address] [place] [address] Pharmacist Internal Medicine 01/11/25
--- OUTSIDE RECORDS SUMMARY | 2025-03-22 15:04 | XMS_ITS | Encounter Summary ---
Author Organization [employer] Address [address] [facility] 7[address] [place] [address] Care Team Providers Care Visual Training Aide Name Role Phone Faith Kern MD Primary Care Provider [phone] Kimberley Guadalupe PharmD Unavailable Reason for Visit * Reason Comments Med Refill Encounter Details Date Type Department Care Team ([facility] st Contact Info) Description 03/17/2025 Refill [facility] [address] [place], [place] [id number] Faith Kern MD [address] [place] [address] Type 2 diabetes mellitus without complication, with long-term current use of insulin ([facility]) Social History Tobacco Use Types Packs/Day Years [...] Description 05/04/2025 8:30 AM EDT Office Visit [facility] [address] [place] [address] Faith Kern MD [address] [place] [address] 08/16/2025 3:00 PM EDT Medication Management [facility] [address] [place] [address] Kimberley Guadalupe PharmD [address] [place] [address] documented as of this encounter Goals Goal Patient Goal Type Associated Problems Recent Progress Patient-Stated? Author Blood Pressure < 140/90 Blood Pressure 140/70(2024 9:52 AM EDT) No Wesley Altman, PharmD Hemoglobin A1c < 7 Result Component 7.1( 3:13 PM EDT) No Wesley Altman, PharmD documented as of this encounter Visit Diagnoses Diagnosis Type 2 diabetes mellitus without complication, with long-term current use of insulin ([facility]) documented in this encounter Additional Health Concerns Assessment Noted Time PHQ-9 Depression Total Score: 8 11/26/19 25 9:20 AM EST documented as of this encounter Care Teams Visual Training Aide Relationship Specialty Start Date End Date Faith Kern MD [address] [place] [address] PCP - General Family Medicine 01/15/20 Kimberley Guadalupe PharmD [address] [place] [address] Pharmacist Internal Medicine 01/11/25 documented as of this encounter
--- OUTSIDE RECORDS SUMMARY | 2025-03-22 15:04 | XMS_ITS | Clinical Summary ---
Author Organization [facility] Address [address] [place] [address] Phone Care Team Providers Care Behavioral Assistant Name Role Phone Faith Kern MD Primary Care Provider [phone] Allergies Active Allergy Reactions Criticality Noted Date [...] 08/02/2022, Additional history exists Insurance Care Teams Behavioral Assistant Relationship Specialty Start Date End Date Faith Kern MD [address] [place] [address] PCP - General Family Medicine 07/24/21
--- OUTSIDE RECORDS SUMMARY | 2025-03-22 15:04 | XMS_ITS | Encounter Summary ---
Author Organization [employer] Address 75 [facility] 7t [place] [address] Care Team Providers Care Bearing Inspector Name Role Phone Faith Kern MD Primary Care Provider [phone] Kimberley Guadalupe PharmD Unavailable [phone] Reason for Visit * Reason Comments Med Refill Encounter Details Date Type Department Care Team ([facility] Contact Info) Description 11/25/2022 Refill [facility] MEDICINE [address] [place], [place] [phone] Faith Kern MD [address] [place], [place] [phone] Social History Tobacco Use Types Packs/Day Years [...] Upcoming Encounters Date Type Department Care Team ([facility] Contact Info) Description 05/04/2025 8:30 AM EDT Office Visit [facility] CHC MED & PEDS [address] [place] [address] Faith Kern MD [address] [place] [address] 08/16/2025 3:00 PM EDT Medication Management [facility] MED & PEDS 505 [place] [address] Kimberley Guadalupe PharmD [address] [place] [address] documented as of this encounter Goals Goal Patient Goal Type Associated Problems Recent Progress Patient-Stated? Author Blood Pressure < 140/90 Blood Pressure 140/70(2024 9:52 AM EDT) No Wesley Altman PharmD Hemoglobin A1c < 7 Result Component 7.1( 3:13 PM EDT) No Wesley Altman PharmD documented as of this encounter Visit Diagnoses Not on filedocumented in this encounter Care Teams Bearing Inspector Relationship Specialty Start Date End Date Faith Kern MD [address] [place] [address] PCP - General Family Medicine 01/15/20 Kimberley Guadalupe PharmD [address] [place] [address] Pharmacist Internal Medicine 01/11/25 documented as of this encounter
--- OUTSIDE RECORDS SUMMARY | 2025-03-22 15:04 | XMS_ITS | Encounter Summary ---
Author Organization [employer] Address 75 [facility] 7t [place] [address] Care Team Providers Care Foster Care Worker Name Role Phone Faith Kern MD Primary Care Provider [phone] Kimberley Guadalupe PharmD Unavailable [phone] Reason for Visit * Reason Comments Med Refill Encounter Details Date Type Department Care Team ([facility] st Contact Info) Description 03/03/2024 Refill [facility] CHC MED & PEDS [address] [place], [place] [phone] Faith Kern MD 505 [place] [address] Social History Tobacco Use Types Packs/Day Years [...] 05/04/2025 8:30 AM EDT Office Visit [facility] MED & PEDS 505 [place] [address] Faith Kern MD 505 [place] [address] 08/16/2025 3:00 PM EDT Medication Management [facility] MED & PEDS [address] [place] [address] Kimberley Guadalupe PharmD 230 [place] [address] documented as of this encounter Goals Goal [...] documented as of this encounter Care Teams Foster Care Worker Relationship Specialty Start Date End Date Faith Kern MD [address] [place] [address] PCP - General Family Medicine 01/15/20 Kimberley Guadalupe, Rakesh [address] [place] [address] Pharmacist Internal Medicine 01/11/25 documented as of this encounter
--- OUTSIDE RECORDS SUMMARY | 2025-03-22 15:04 | XMS_ITS | Encounter Summary ---
Author Organization [facility] Address 100 [facility] 200 [place] [address] Phone Care Team Providers Care Cathodic Protection Technician Name Role Phone Faith Kern MD Primary Care Provider [phone] Reason for Visit * Reason Comments Med Refill Encounter Details Date Type Department Care Team (Late st Contact Info) Description 05/02/2024 Refill [facility] 200 [place] [address] Nik Mckeon MD 9[address] [facility] 204 [place] [address] Social History Tobacco Use Types [...] on filedocumented in this encounter Care Teams Cathodic Protection Technician Relationship Specialty Start Date End Date Faith Kern MD [address] [place] [address] PCP - General Family Medicine 07/24/21 documented as of this encounter
--- OUTSIDE RECORDS SUMMARY | 2025-03-22 15:04 | XMS_ITS | Encounter Summary ---
Author Organization [facility] Address 100 [facility] 200 [place] [address] Phone Care Team Providers Care Payroll Tax Analyst Name Role Phone Faith Kern MD Primary Care Provider [phone] Reason for Visit * Reason Comments Med Refill Encounter Details Date Type Department Care Team (Late st Contact Info) Description 11/28/2024 Refill [facility] 200 [place] [address] Nik Mckeon MD 0[address] [facility] [address] [place] [address] Social History Tobacco Use Types [...] on filedocumented in this encounter Care Teams Payroll Tax Analyst Relationship Specialty Start Date End Date Faith Kern MD [address] [place] [address] PCP - General Family Medicine 07/24/21 documented as of this encounter
--- OUTSIDE RECORDS SUMMARY | 2025-03-22 15:04 | XMS_ITS | Encounter Summary ---
Author Organization [employer] Address 75 [facility] 7t [place] [address] Care Team Providers Care Music Video Director Name Role Phone Faith Kern MD Primary Care Provider Kimberley Guadalupe PharmD Unavailable [phone] Reason for Referral * Social Care Application (Routine) - Closed Specialty Diagnoses / Procedures Referred By Contac t Referred To Contact Diagnoses Diabetes mellitus due to underlying condition with hyperosmolarity without coma, without long-term current use of insulin (CMS/HCC) Faith Kren MD [address] [place] [address] Phone: tel: fax: Eliana Flores RD 230 [place] [address] fax: Referral ID Status Reason Start Date Expiration Date V isits Requested Visits Authorized [id number] Closed Specialty Services Required 01/16/2023 07/15/2023 1 1 Encounter Details Date Type Department Care Team (Late st Contact Info) Description 01/16/2023 Orders Only [facility] CHC MED & PEDS [address] [place], [place] [phone] Faith Kern MD [address] [place] [address] Diabetes mellitus due to underlying condition with [...] Description 05/04/2025 8:30 AM EDT Office Visit [facility] MED & PEDS 505 [place] [address] Faith Kern MD 505 [place] [address] 08/16/2025 3:00 PM EDT Medication Management [facility] MED & PEDS 505 [place] [address] Kimberley Guadalupe PharmD 230 [place] [address] Scheduled Referrals Name Type Priority Associated Diagnoses [...] Primary documented in this encounter Care Teams Music Video Director Relationship Specialty Start Date End Date Faith Kern MD [address] [place] [address] PCP - General Family Medicine 01/15/20 Kimberley Guadalupe, Rakesh [address] [place] [address] Pharmacist Internal Medicine 01/11/25 documented as of this encounter
== END 2025-03-22 15:16 | disposition home or self-care (01) ==
LOC: HO.HKA 14:59
PROVIDERS: PCP Student in an Organized Health Care Education/Training Program; Visit Provider Internal Medicine Hypertension Specialist
DX: N18.4 Chronic kidney disease, stage 4 (severe) (principal)
CPT/HCPCS: 99214

== ENCOUNTER → 2025-03-22 14:58 | Outpatient (BNVA) | payer OTHER, SELFPAY | PROVIDERS: PCP Student in an Organized Health Care Education/Training Program; Visit Provider Internal Medicine Hypertension Specialist ==

== ENCOUNTER 2025-03-27 08:08 | Outpatient (REF) | payer OTHER, SELFPAY ==
--- OUTSIDE RECORDS SUMMARY | 2025-03-27 08:11 | XMS_ITS | Encounter Summary ---
Author Organization [facility] Address [facility]9 [place] [address] Care Team Providers Care Pig Iron Loader Name Role Phone Jayashree Monzon MD Primary Care Provider Veto Dobson MD Primary Care Provider Unavail able Faith Kern Primary Care Provider Unavailabl e Encounter Details Date Type Department Care Team Description 03/02/2013 Pt. Non Urgent Medic al Question Gastroenterology - [address] [address] Carole Fonseca MD Social History Tobacco Use Types Packs/Day Years Used Date Smoking Tobacco: Never Smokeless Tobacco: Never Alcohol Use Standard Drinks/Week Comments Yes 0 (1 standard drink = 0.6 oz pur e alcohol) 1 drink per yr Sex Assigned at Date Recorded Not on file documented as of this encounter Progress Notes * Es Ji M.A. - 03/02/2013 3:24 PM EDTFrom: NATANAELBUSHRA To: Carole Fonseca MD Sent: SatMar 02, 2013 3:23 PM Subject: H PYLORI Hi Dr. Fonseca, Just wanted to let you know that I finished my medications on 02/26/13. Still taking my Omeprazole because I started taking them late due to insurance purpose. I feel much better. Thank you. documented in this encounter Plan of Treatment Not on file documented as of this encounter Visit Diagnoses Not on filedocumented in this encounter Care Teams Pig Iron Loader Relationship Specialty Start Date End Date Jayashree Monzon MD PCP - General Internal Medicine 02/18/13 08/14/18 Veto Wong MD PCP - General Internal Medicine 08/15/18 12/26/23 Faith Kern PCP - General Family Practice 12/27/23 documented as of this encounter
--- OUTSIDE RECORDS SUMMARY | 2025-03-27 08:11 | XMS_ITS | Encounter Summary ---
Author Organization [employer] Address 75 [facility] 7t [place] [address] Care Team Providers Care Airport Engineer Name Role Phone Faith Kern MD Primary Care Provider [phone] Kimberley Guadalupe PharmD Unavailable [phone] Reason for Visit * Reason Comments Med Refill Encounter Details Date Type Department Care Team ([facility] st Contact Info) Description 03/03/2024 Refill [facility] CHC MED & PEDS [address] [place], [place] [phone] Faith Kern MD 505 [place] [address] Social History Tobacco Use Types Packs/Day Years [...] 8:30 AM EDT Office Visit [facility] MED & PEDS 505 [place] [address] Faith Kern MD 505 [place] [address] 08/16/2025 3:00 PM EDT Medication Management [facility] MED & PEDS [address] [place] [address] Kimberley Guadalupe PharmD 230 [place] [address] documented as of this encounter Goals Goal [...] documented as of this encounter Care Teams Airport Engineer Relationship Specialty Start Date End Date Faith Kern MD 230 [place] [address] PCP - General Family Medicine 01/15/20 Kimberley Guadalupe, Rakesh [address] [place] [address] Pharmacist Internal Medicine 01/11/25 documented as of this encounter
--- OUTSIDE RECORDS SUMMARY | 2025-03-27 08:11 | XMS_ITS | Encounter Summary ---
Author Organization [facility] Address [address] [place] [address] Care Team Providers Care Die Designer Apprentice Name Role Phone Jayashree Monzon MD Primary Care Provider Veto Dobson MD Primary Care Provider Unavail able Faith Kern Primary Care Provider Unavailabl e Reason for Visit * Reason Onset Date Comments Pre-visit Diabetes Lab Adult Medicine 09/07/2013 Encounter Details Date Type Department Care Team Description 09/07/2013 Telephone Adult Medicine [address] [address] Jayashree Monzon MD Pre-visit Diabetes Lab Adult [...] patients voice mail to return call to [facility]. If patient calls back, please instruct the patient to have their diabetes lab work completed at least 3 days prior to their upcoming appointment in Adult Medicine on 09/14/13 at 10:00 am with . Let the patient know our lab is open on the weekends in the [place] office only. The patient does not need to be fasting to complete the lab work. documented in this encounter Plan of Treatment Not on file documented as of this encounter Visit Diagnoses Not on filedocumented in this encounter Care Teams Die Designer Apprentice Relationship Specialty Start Date End Date Jayashree Monzon MD PCP - General Internal Medicine 02/18/13 08/14/18 Veto Wong MD PCP - General Internal Medicine 08/15/18 12/26/23 Faith Kern PCP - General Family Practice 12/27/23 documented as of this encounter
--- OUTSIDE RECORDS SUMMARY | 2025-03-27 08:11 | XMS_ITS | Encounter Summary ---
Author Organization [facility] Address [address] [place] [address] Care Team Providers Care Churn Driller Name Role Phone Jayashree Monzon MD Primary Care Provider Unava ilable Italo Mar MD Primary Care Provider Selma vailable Jayashree Monzon MD Primary Care Provider Unava ilable Veto Wong MD Primary Care Provider Unavail able Faith Kern Primary Care Provider Unavailabl e Reason for Referral * Specialist (Routine) - Authorized/Booked Specialty Diagnoses / Procedures Referred By Aneudy brandon Referred To Contact Podiatry Procedures REFERRAL TO PODIATRY Jayashree Monzon MD [address] [place] [address]/[place] [address] Referral ID Status Reason Start Date Expiration Date V isits Requested Visits Authorized NOT REQUIRED Authorized/ Booked 08/19/2012 08/19/2013 1 1 Encounter Details Date Type Department Care Team Description 08/18/2012 Pt. Non Urgent Medic al Question [place] [address] Jayashree Monzon MD Social History Tobacco Use Types Packs/Day Years Used Date Smoking Tobacco: Never Alcohol Use Standard Drinks/Week Comments Yes 0 (1 standard drink = 0.6 oz pur e alcohol) occassionally Sex Assigned at Date Recorded Not on file documented as of this encounter Progress Notes * Aspen Hernandez 08/19/2012 4:11 PM EDTFrom: BUSHRA HERMAN To: Jayashree Monzon MD Sent: SatAug 18, 2012 3:11 PM Subject: Referral to a Food Science Professor I would like a referral to see a cooler servicer because I am a diabetic and experiencing feet pain. Thank you. documented in this encounter Plan of Treatment Not on file documented as of this encounter Visit Diagnoses Not on filedocumented in this encounter Care Teams Churn Driller Relationship Specialty Start Date End Date Jayashree [...]
--- OUTSIDE RECORDS SUMMARY | 2025-03-27 08:11 | XMS_ITS | Clinical Summary ---
Author Organization [facility] Address [address] [facility] [address] [address] [place] [address] Phone Care Team Providers Care Professor Of Business Administration Name Role Phone Faith Kern MD Primary Care Provider [phone] Allergies Active Allergy Reactions Criticality Noted Date [...] 08/02/2022, Additional history exists Insurance Care Teams Professor Of Business Administration Relationship Specialty Start Date End Date Faith Kern MD [address] [place] [address] PCP - General Family Medicine 07/24/21
--- OUTSIDE RECORDS SUMMARY | 2025-03-27 08:11 | XMS_ITS | Encounter Summary ---
Author Organization [facility] Address 100 [facility] 200 [place] [address] Phone Care Team Providers Care Flight Communications Specialist Name Role Phone Faith Kern MD Primary Care Provider [phone] Reason for Visit * Reason Comments Med Refill Encounter Details Date Type Department Care Team (Late st Contact Info) Description 05/02/2024 Refill [facility] [address] [place] [address] Nik Mckeon MD 8[address] [facility] [address] [place] [address] Social History Tobacco Use Types [...] on filedocumented in this encounter Care Teams Flight Communications Specialist Relationship Specialty Start Date End Date Faith Kern MD [address] [place] [address] PCP - General Family Medicine 07/24/21 documented as of this encounter
--- OUTSIDE RECORDS SUMMARY | 2025-03-27 08:11 | XMS_ITS | Encounter Summary ---
Author Organization [facility] Address [facility]9 [place] [address] Care Team Providers Care House Wirer Helper Name Role Phone Jayashree Monzon MD Primary Care Provider Veto Dobson MD Primary Care Provider Unavail able Faith Kern Primary Care Provider Unavailabl e Encounter Details Date Type Department Care Team Description 03/18/2013 Controlled Substance Contract with Plan Medical Records [address] [place] [address] Abstract, Provider Social History Tobacco Use Types [...] on filedocumented in this encounter Care Teams House Wirer Helper Relationship Specialty Start Date End Date Jayashree Monzon MD PCP - General Internal Medicine 02/18/13 08/14/18 Veto Wong MD PCP - General Internal Medicine 08/15/18 12/26/23 Faith Kern PCP - General Family Practice 12/27/23 documented as of this encounter
--- OUTSIDE RECORDS SUMMARY | 2025-03-27 08:11 | XMS_ITS | Encounter Summary ---
Author Organization [facility] Address [address] [place] [address] Phone Care Team Providers Care Line Service Attendant Name Role Phone Faith Kern MD Primary Care Provider [phone] Encounter Details Date Type Department Care Team (Late st Contact Info) Description 10/24/2021 Documentation Only [facility] [address] [place] [address] Emir Cisse MD Social History [...] on filedocumented in this encounter Care Teams Line Service Attendant Relationship Specialty Start Date End Date Faith Kern MD [address] [place] [address] PCP - General Family Medicine 07/24/21 documented as of this encounter
--- OUTSIDE RECORDS SUMMARY | 2025-03-27 08:11 | XMS_ITS | Encounter Summary ---
Author Organization [facility] Address [facility]9 [place] [address] Care Team Providers Care Hull Molder Name Role Phone Jayashree Monzon MD Primary Care Provider Unava ilable Italo Mar MD Primary Care Provider Selma vailable Jayashree Monzon MD Primary Care Provider Unava ilable Veto Wong MD Primary Care Provider Unavail able Faith Kern Primary Care Provider Unavailabl e Reason for Visit * Reason Onset Date Comments other 05/16/2011 non compliant Encounter Details Date Type Department Care Team Description 05/16/2011 Telephone OBGYN - [address] [address] Sherry Koroma CNM other (non compliant) Social History Tobacco Use Types Packs/Day Years Used Date Smoking Tobacco: Never Alcohol Use Standard Drinks/Week Comments Yes 0 (1 standard drink = 0.6 oz pur e alcohol) occassionally Sex Assigned at Date Recorded Not on file documented as of this encounter Miscellaneous Notes * Telephone Encounter - Sandy Bartlett - 05/16/2011 10:48 AM EDT FYI This woman needs a follow up mammogram from her screening one done on 04-14-11. She has not responded to our calls or letters. I am advised to ask you to send her a failure to keep referral letter Thank You documented in this encounter Plan of Treatment Not on file documented as of this encounter Visit Diagnoses Not on filedocumented in this encounter Care Teams Hull Molder Relationship Specialty Start Date End Date Jayashree [...]
--- OUTSIDE RECORDS SUMMARY | 2025-03-27 08:12 | XMS_ITS | Encounter Summary ---
Author Organization [facility] Address 100 [facility] 200 [place] [address] Phone Care Team Providers Care School Standards Coach Name Role Phone Faith Kern MD Primary Care Provider [phone] Reason for Visit * Reason Comments Med Refill Encounter Details Date Type Department Care Team (Late st Contact Info) Description 11/28/2024 Refill [facility] 100 [facility] 200 [place] [address] Nik Mckeon MD [address] [facility] 204 [place] [address] Social History Tobacco Use Types [...] on filedocumented in this encounter Care Teams School Standards Coach Relationship Specialty Start Date End Date Faith Kern MD [address] [place] [address] PCP - General Family Medicine 07/24/21 documented as of this encounter
--- OUTSIDE RECORDS SUMMARY | 2025-03-27 08:12 | XMS_ITS | Encounter Summary ---
Author Organization [facility] Address [address] [place] [address] Care Team Providers Care Accounting Instructor Name Role Phone Jayashree Monzon MD Primary Care Provider Veto Dobson MD Primary Care Provider Unavail able Faith Kern Primary Care Provider Unavailabl e Encounter Details Date Type Department Care Team Description 10/09/2016 [facility] Medical Records [address] [place] [address] Abstract, Provider Social History Tobacco Use Types [...] on filedocumented in this encounter Care Teams Accounting Instructor Relationship Specialty Start Date End Date Jayashree Monzon MD PCP - General Internal Medicine 02/18/13 08/14/18 Veto Wong MD PCP - General Internal Medicine 08/15/18 12/26/23 Faith Kern PCP - General Family Practice 12/27/23 documented as of this encounter
--- OUTSIDE RECORDS SUMMARY | 2025-03-27 08:12 | XMS_ITS | Encounter Summary ---
Author Organization [facility] Address [address] [place] [address] Care Team Providers Care Division Traffic Superintendent Name Role Phone Jayashree Monzon MD Primary Care Provider Veto Dobson MD Primary Care Provider Unavail able Faith Kern Primary Care Provider Unavailabl e Reason for Visit * Reason Onset Date Comments My Chart Appointment 04/29/2015 Encounter Details Date Type Department Care Team Description 04/29/2015 Telephone Adult Medicine [address] [address] Jayashree Monzon MD My Chart Appointment Social History Tobacco Use Types Packs/Day Years Used Date Smoking Tobacco: Never Smokeless Tobacco: Never Alcohol Use Standard Drinks/Week Comments Yes 0 (1 standard drink = 0.6 oz pur e alcohol) 1 drink per yr Sex Assigned at Date Recorded Not on file documented as of this encounter Miscellaneous Notes * Telephone Encounter - Sea AguilarPCedric - 05/01/2015 2:55 PM EDT Telephone Information: [...] on filedocumented in this encounter Care Teams Division Traffic Superintendent Relationship Specialty Start Date End Date Jayashree Monzon MD PCP - General Internal Medicine 02/18/13 08/14/18 Veto Wong MD PCP - General Internal Medicine 08/15/18 12/26/23 Faith Kern PCP - General Family Practice 12/27/23 documented as of this encounter
--- OUTSIDE RECORDS SUMMARY | 2025-03-27 08:12 | XMS_ITS | Encounter Summary ---
Author Organization [facility] Address [facility]9 [place] [address] Care Team Providers Care Cabinetmaker Apprentice Name Role Phone Jayashree Monzon MD Primary Care Provider Veto Dobson MD Primary Care Provider Unavail able Faith Kern Primary Care Provider Unavailabl e Encounter Details Date Type Department Care Team Description 03/06/2016 Seam Rubbing Machine Operator Report Medical Records [address] [place] [address] Abstract, Provider Social History Tobacco Use Types [...] on filedocumented in this encounter Care Teams Cabinetmaker Apprentice Relationship Specialty Start Date End Date Jayashree Monzon MD PCP - General Internal Medicine 02/18/13 08/14/18 Veto Wong MD PCP - General Internal Medicine 08/15/18 12/26/23 Faith Kern PCP - General Family Practice 12/27/23 documented as of this encounter
--- OUTSIDE RECORDS SUMMARY | 2025-03-27 08:12 | XMS_ITS | Encounter Summary ---
Author Organization [facility] Address [facility]9 [place] [address] Care Team Providers Care Flatwork Washer Name Role Phone Jayashree Monzon MD Primary Care Provider Veto Dobson MD Primary Care Provider Unavail able Faith Kern Primary Care Provider Unavailabl e Encounter Details Date Type Department Care Team Description 07/11/2017 Refill Adult Medicine [address] [address] Jayashree Monzon MD Social History Tobacco Use [...] on filedocumented in this encounter Care Teams Flatwork Washer Relationship Specialty Start Date End Date Jayashree Monzon MD PCP - General Internal Medicine 02/18/13 08/14/18 Veto Wong MD PCP - General Internal Medicine 08/15/18 12/26/23 Faith Kern PCP - General Family Practice 12/27/23 documented as of this encounter
--- OUTSIDE RECORDS SUMMARY | 2025-03-27 08:12 | XMS_ITS | Encounter Summary ---
Author Organization [facility] Address [facility]9 [place] [address] Care Team Providers Care Mineral Engineer Name Role Phone Jayashree Monzon MD Primary Care Provider Veto Dobson MD Primary Care Provider Unavail able Faith Kern Primary Care Provider Unavailabl e Encounter Details Date Type Department Care Team Description 07/03/2016 STATISTICIAN THEORETICAL/[facility] Report Medical Records [address] [place] [address] Abstract, Provider Social History Tobacco Use Types [...] on filedocumented in this encounter Care Teams Mineral Engineer Relationship Specialty Start Date End Date Jayashree Monzon MD PCP - General Internal Medicine 02/18/13 08/14/18 Veto Wong MD PCP - General Internal Medicine 08/15/18 12/26/23 Faith Kern PCP - General Family Practice 12/27/23 documented as of this encounter
--- OUTSIDE RECORDS SUMMARY | 2025-03-27 08:12 | XMS_ITS | Clinical Summary ---
Author Organization [employer] Address [address] [facility] 7t [place] [address] Care Team Providers Care Cast Shell Grinder Name Role Phone Faith Kern MD Primary Care Provider [phone] Kimberley Guadalupe PharmD Unavailable [phone] Allergies Active Allergy Reactions Criticality Noted Date [...] complication, with long-term current use of insulin ([facility]) Check sugars BID 1 each 023 Active [...] complication, with long-term current use of insulin ([facility]) TEST BLOOD SUGAR THREE TIMES DAILY 100 [...] week. 2 mL 2 025 2024 Discontinued Hospital, Clinic, or Other Facility Administered Medication [...] Encounters Date Type Department Care Team Description 03/27/2025 Refill [facility] 505 [facility] LESLEE Blancas [phone] Faith Kern MD 03/17/2025 Refill [facility] 505 [facility] LESLEE Alek [phone] Faith Kern MD Type 2 diabetes mellitus without complication, with long-term current use of insulin (CMS/[facility]) 03/11/2025 Refill [facility] 505 [facility] LESLEE [phone] Faith Kern MD 03/04/2025 Refill [facility] 505 [facility] LESLEE [phone] Faith Kern MD 02/27/2025 Refill [facility] [address] [facility] LESLEE [phone] Faith Kern MD 02/25/2025 9:45 AM EDT Procedure Visit [facility] 505 [facility] LESLEE Charles [phone] Faith Kern MD Adhesive capsulitis of right shoulder (Primary Dx); Diabetes mellitus due to underlying condition without complication, with long-term current use of insulin (CMS/HCC) 02/25/2025 Travel 02/22/2025 Travel 01/26/2025 Telephone [facility] [phone] Kimberley Guadalupe, PharmD 01/11/2025 Travel from Last 3 Months Immunizations Immunization Administration Dates Next Due HepB-CpG [...] Description 05/04/2025 8:30 AM EDT Office Visit [facility] P[facility]S 505 [facility] [place] [address] Faith Kern MD 505 [place] [address] 08/16/2025 3:00 PM EDT Medication Management [facility]S 505 [facility] [place] [address] Kimberley Guadalupe, PharmD [address] [place] [address] Health Maintenance Due Date Last Done Comments [...] patient's age to complete this topic Meningococcal B Vaccine Aged Out No l onger eligible based on patient's age to complete [...] complication, with long-term current use of insulin ([facility]) [place] ARTHROCENTESIS ASPIR&/INJ MAJOR JT/BURSA W/O US Routine 02/25/2025 9:46 AM EDT Adhesive capsulitis of right shoulder POCT GLYCATED HEMOGLOBIN, TOTAL Routine 02/22/2025 3:13 PM EDT Diabetes mellitus due to underlying condition without complication, with long-term current use of insulin ([facility]) LIPID PANEL, STANDARD Routine 11/26/2024 9:47 AM [...] TEST ENTER/EDIT OR DERABLES Final Result * [place] ARTHROCENTESIS ASPIR&/INJ MAJOR JT/BURSA W/O US (02/25/2025 [...] yes ?Risks discussed: ??Pain ??Alternatives discussed: ??Referral [place] protocol: ??Procedure explained and questions answered to [...] 9:47 AM EST) Triglycerides 208(H) <150 mg/dL [facility] Comment:Desirable Triglyceri de: less than 150 mg/dLBorderline High Triglyceride 150-199 mg/dLHigh Triglyceride: 200-499 mg/dLVery High Triglyceride: greater than or equal to 5OO mg/dL Cholesterol 168 <200 mg/dL [facility] Comment:Desirable Cholestero l: less than 200 mg/dLBorderline High Cholesterol: 200-239 mg/dLHigh Cholesterol: greater than 239 mg/dL LDL Cholesterol Calculated 83 <100 mg/dL [facility] Comment:Desirable LDL: less than 100 mg/dLNear Optimal/Above Optimal LDL: 110- 129 mg/dLBorderline High LDL: 130-159 mg/dLHigh LDL: 160-189 mg/dLVery High LDL: greater than or equal to 190 mg/dL HDL Cholesterol 44 >40 mg/dL [facility] Comment:Desirable HDL: great er than 40 mg/dL Note: This HDL assay may give artificially low results in patients with liver disease. Blood Venous blood specimen / Unknown 11/26/2024 9:47 AM EST 11/26/2024 2:00 PM EST us Faith Kern MD LAB BLOOD ORDERABLES Final Resul t [facility] [address] [facility] [place] [address] [phone] * BI Mammogram Screening Tomosynthesis Bilateral (03/21/2024 8:30 AM EDT) Anatomical Region Laterality Modality Breast Bilateral Mammography 03/21/2024 8:30 AM EDT Narrative 04/06/2024 1:04 PM EDT ? [facility] ? [address] ?[place] [address] ? Mammography Report ? Signed ? Patient: Virgil,Susannah ?MR#: [id number] ?? 1 ? : 1965 ?Acct:[id number] ? Age/Sex: 58 / F ?ADM Date: 03/21/24 ? Loc: HO.MAMMO ? Attending Dr: Faith Roche Concha MD ? Ordering Physician: Concha,Faith S MD ?Results: 1Negati ?? ve ? Date of Service: 03/21/24 ?Follow Up: 1 Year From Orig ?? inal Mammogram ? Procedure(s): MM tomosynthesis screening BI ?? Accession Number(s): [id number] ? cc: Faith Kern MD ? EXAMINATION: [...] 1259 ? DD/ 0830 ? TD/TT: ? Sterile Supervisor: ? Procedure Note Tayla, Image - 04/06/2024 [facility] [address] [place] [address] [place] [address] Mammography Report Signed Patient: Kate HermanMarzenaR#: [id number] 1 : 1965Acct:[id number] Age/Sex: 58 / FADM Date: 03/21/24 Loc: [facility] Attending Dr: Faith Kern MD Ordering Physician: Faith Kernesults: 1Negati ve Date of Service: 03/21/24Follow Up: 1 Year From Orig ina Mammogram Procedure(s): MM tomosynthesis screening BI Accession Number(s): [id number] cc: Faith Kern MD EXAMINATION: MM SCREENING [...] in OV> 04/06/24 1259 DD/ 0830 TD/TT: Sterile Supervisor: Faith Kern MD IMG BI PROCEDURES Final Result * Cologuard?? colon cancer screening (01/19/2024 4:30 PM EDT) Cologuard Result Negative Negative 01/26/20 8:56 AM EDT [employer] [facility] (CLIA #:[id number]) Comment: NEGATIVE TEST RESULT. A negative Cologuard [...] cancer. ??Following a negative Cologuard result, the [place] Cancer Society and U.S. Multi-Society Task Force screening guidelines recommend a Cologuard re-screening interval of 3 years. References: [place] [employer] Society Guideline for Colorectal Cancer Screening: https://www.cancer.org/cancer/hzpog-flbigt-zpxkwc/kuvvzcbln-ojidlljxs-woxmadi/ac s-rec ommendations.html.; Misael DK, Bola CR, Peace EvansK, Colorectal Cancer Screening: Recommendations for Physicians and Patients from the U.S. Multi-Society Task Force on Colorectal Cancer Screening , Am J Gastroenterology 2017; 112:5075-3774. TEST DESCRIPTION: Composite algorithmic analysis of stool [...] (Joel Jacobo al, N Engl J Med 2014;370(14):1138-8960.) Cologuard may produce a false negative or false positive result (no colorectal cancer or precancerous polyp present at colonoscopy follow up). A negative Cologuard test result does not guarantee the absence of CRC or advanced adenoma (pre-cancer). The current Cologuard screening interval is every 3 years. ([place] Cancer Society and U.S. Multi-Society Task Force). Cologuard performance data in a 10,000 patient pivotal study using colonoscopy as the reference method can be accessed at the following location: www.[employer]/results. Additional description of the Cologuard test process, warnings and precautions can be found at www.[facility]. Stool specimen (specimen) 01/19/2024 4:30 PM EDT 01/22/2024 2:01 PM EDT Faith Kern MD LAB MOLECULAR DIAGNOSTICS ORDERA BLES Final Result [employer] [facility] (CLIA #:[id number]) Fito [place] [address], * THINPREP TIS PAP AND HPV mRNA E6/E7 WITH REFLEX TO HPV 16,18/45 (03/06/2022 9:04 AM EDT) Clinical Information: LORENZA-LILO SIDDIQI [facility] COMMENT SEE COMMENT FOUNDAT[facility] ON [...] has been evaluated with computer assisted technology. [facility] Manager Sign: SEE COMMENT [facility] Comment: ED, CT(ASCP) CT screening location: ?? [facility] ?? [address] [place] [address] ?? [place] [address] HPV nRNA E6/E7 Not Detected Not Detected [facility] Comment: Methodology: [employer] Inspector-Mediated Amplification This assay detects E6/E7 viral messenger RNA (mRNA) from 14 high-risk HPV types (16,18,31,33,35,39,45,51,52,56,58,59,66,68). ? The analytical performance characteristics of this assay have been determined by [employer]. The modifications have not been cleared or approved by the FDA. This assay has been validated pursuant to the CLIA regulations and is used for clinical purposes. ?? For additional information, please refer to http://education.[employer]/faq/HGW396w0 (This link if provided for information/ educational purposes only.) Interpretation/Re sult: Negative for intraepithelial lesion or malignancy. [facility] LMP: MIRENA IUD [facility] Prev. BX: NONE GIVEN [facility] Prev. PAP: NONE GIVEN [facility]OUND[facility] ON LAB SYSTEM SOURCE: None given [facility] Statement Of Adequacy: SEE COMMENT [facility] Comment: Satisfactory for evaluation. Endocervical/transformation zone component present. 03/06/2022 9:04 AM EDT Salima Smith CNM LAB PATHOLOGY ORDERABLES Final Result [facility] [address] from Last 3 Months or Most Recently Relevant to Health Maintenance Insurance [facility] , [address] [place] [address] Care Teams Cast Shell Grinder Relationship Specialty Start Date End Date Faith Kern MD [address] [place] [address] PCP - General Family Medicine 01/15/20 Kimberley Guadalupe PharmD [address] [place] [address] Pharmacist Internal Medicine 01/11/25
--- OUTSIDE RECORDS SUMMARY | 2025-03-27 08:12 | XMS_ITS | Encounter Summary ---
Author Organization [facility] Address [address] [place] [address] Care Team Providers Care Community Center Coordinator Name Role Phone Faith Kern Primary Care Provider Unavailabl e Encounter Details Date Type Department Care Team Description 12/27/2023 Old Records [facility] [address] [phone] Armand Max DPM [address] [address] Social History Tobacco Use Types Packs/Day Years [...] on filedocumented in this encounter Care Teams Community Center Coordinator Relationship Specialty Start Date End Date Faith Kern PCP - General Family Practice 12/27/23 documented as of this encounter
--- OUTSIDE RECORDS SUMMARY | 2025-03-27 08:13 | XMS_ITS | Encounter Summary ---
Author Organization [employer] Address 75 [facility] 7t [place] [address] Care Team Providers Care Nutritionalist Name Role Phone Faith Kern MD Primary Care Provider [phone] Kimberley Guadalupe PharmD Unavailable [phone] Reason for Visit * Reason Comments Med Refill Encounter Details Date Type Department Care Team ([facility] Contact Info) Description 11/25/2022 Refill [facility] [address] [place], [place] [phone] Faith Kern MD [address] [place], [place] [phone] Social History Tobacco Use Types Packs/Day Years [...] Upcoming Encounters Date Type Department Care Team ([facility] Contact Info) Description 05/04/2025 8:30 AM EDT Office Visit [facility] [address] [place] [address] Faith Kern MD [address] [place] [address] 08/16/2025 3:00 PM EDT Medication Management [facility] [address] [place] [address] Kimberley Guadalupe PharmD [address] [place] [address] documented as of this encounter Goals Goal Patient Goal Type Associated Problems Recent Progress Patient-Stated? Author Blood Pressure < 140/90 Blood Pressure 140/70(2024 9:52 AM EDT) No Wesley Altman PharmD Hemoglobin A1c < 7 Result Component 7.1( 3:13 PM EDT) No Wesley Altman PharmD documented as of this encounter Visit Diagnoses Not on filedocumented in this encounter Care Teams Nutritionalist Relationship Specialty Start Date End Date Faith Kern MD [address] [place] [address] PCP - General Family Medicine 01/15/20 Kimberley Guadalupe PharmD [address] [place] [address] Pharmacist Internal Medicine 01/11/25 documented as of this encounter
--- OUTSIDE RECORDS SUMMARY | 2025-03-27 08:13 | XMS_ITS | Clinical Summary ---
Author Organization [facility] Address [address] [place] [address] Care Team Providers Care Software Programmer Name Role Phone ConchaEdeFaith Primary Care Provider [...] just unsure what to do Educational Resources [place] [employer] (www.diabetes.org) Centers for Disease Control [...] place 06/11 Overview: Mirena placed in 2014 SCHOOL AIDE (background diabetic retinopathy) Overview: Dr. Simms 01/17/15 [...] RISK PATIENTS Completed 12/03/2017, 03/18/2009 Care Teams Software Programmer Relationship Specialty Start Date End Date Faith Kern PCP - General Family Practice 12/27/23
--- OUTSIDE RECORDS SUMMARY | 2025-03-27 08:13 | XMS_ITS | Encounter Summary ---
Author Organization [facility] Address [address] [place] [address] Care Team Providers Care Pen And Pencil Repairer Name Role Phone Jayashree Monzon MD Primary Care Provider Veto Dobson MD Primary Care Provider Unavail able Faith Kern Primary Care Provider Unavailabl e Encounter Details Date Type Department Care Team Description 12/27/2017 Transfer Records Medical Records [address] [place] [address] Social History Tobacco Use Types Packs/Day Years [...] on filedocumented in this encounter Care Teams Pen And Pencil Repairer Relationship Specialty Start Date End Date Jayashree Monzon MD PCP - General Internal Medicine 02/18/13 08/14/18 Veto Wong MD PCP - General Internal Medicine 08/15/18 12/26/23 Faith Kern PCP - General Family Practice 12/27/23 documented as of this encounter
--- OUTSIDE RECORDS SUMMARY | 2025-03-27 08:13 | XMS_ITS | Encounter Summary ---
Author Organization [facility] Address [facility] [place] [address] Care Team Providers Care Job Specification Writer Name Role Phone Veto Wong MD Primary Care Provider Unavail able Faith Kern Primary Care Provider Unavailabl e Reason for Visit * Reason Onset Date Comments Mychart Rx Refill 01/26/2019 Encounter Details Date Type Department Care Team Description 01/26/2019 Refill Adult Medicine [address] [address] Darinel Kunz MD Mychart Rx Refill Social History Tobacco Use Types Packs/Day Years Used Date Smoking Tobacco: Never Smokeless Tobacco: Never Alcohol Use Standard Drinks/Week Comments Yes 0 (1 standard drink = 0.6 oz pur e alcohol) 1 drink per yr Sex Assigned at Date Recorded Not on file documented as of this encounter Miscellaneous Notes * Telephone Encounter - Pattie Doll M.A. - 01/27/2019 6:40 AM EDT Lab Results Component Value Date HGBA1C 8.7 01/16/2019 MALBUR 5720.0 01/16/2019 MALBCR 4300.7 01/16/2019 CHOL 309 01/16/2019 LDL 208 01/16/2019 HDL 55 01/16/2019 TRIG 232 01/16/2019 GLU 191 01/16/2019 CREAT 0.96 01/16/2019 Last ov with Hui 01/15/19 * Telephone Encounter - Pattie Doll M.A. - 01/27/2019 6:39 AM EDTFrom: Susannah Herman To: Darinel Kunz MD Sent: 01/26/2019 10:35 PM EDT Subject: Medication Renewal Request Original authorizing provider: MD Susannah Thayer would like a refill of the following medications: Insulin Pen Needle (B-D U/F PEN NEEDLE) 31G X 5 MM Misc [Darinel Kunz MD] Preferred pharmacy: [id number] [place] [address] Comment: documented in this encounter Plan of Treatment Not on file documented as of this encounter Visit Diagnoses Not on filedocumented in this encounter Care Teams Job Specification Writer Relationship Specialty Start Date End Date Veto Wong MD PCP - General Internal Medicine 08/15/18 12/26/23 Faith Kern PCP - General Family Practice 12/27/23 documented as of this encounter
--- OUTSIDE RECORDS SUMMARY | 2025-03-27 08:13 | XMS_ITS | Encounter Summary ---
Author Organization [facility] Address [address] [place] [address] Care Team Providers Care Fuel Assembler Name Role Phone Jayashree Monzon MD Primary Care Provider Veto Dobson MD Primary Care Provider Unavail able Faith Kern Primary Care Provider Unavailabl e Encounter Details Date Type Department Care Team Description 12/03/2017 Hospital Medical Records [address] [place] [address] Abstract, Provider Social History Tobacco Use Types [...] filedocumented in this encounter Care Teams Fuel Assembler Relationship Specialty Start Date End Date Jayashree Monzon MD PCP - General Internal Medicine 02/18/13 08/14/18 Veto Wong MD PCP - General Internal Medicine 08/15/18 12/26/23 Faith Kern PCP - General Family Practice 12/27/23 documented as of this encounter
--- OUTSIDE RECORDS SUMMARY | 2025-03-27 08:13 | XMS_ITS | Encounter Summary ---
Author Organization [employer] Address [address] [facility] 7t [place] [address] Care Team Providers Care Supervisor Asbestos Removal Name Role Phone Faith Kern MD Primary Care Provider [phone] Kimberley Guadalupe PharmD Unavailable [phone] Reason for Visit * Reason Comments Med Refill Encounter Details Date Type Department Care Team ([facility] Contact Info) Description 03/27/2025 Refill [facility]EDS [address] [place] [address] Faith Kern MD [address] [place] [address] Social History Tobacco Use Types Packs/Day Years [...] 05/04/2025 8:30 AM EDT Office Visit [facility] [address] [place] [address] Faith Kern MD [address] [place] [address] 08/16/2025 3:00 PM EDT Medication Management [facility] [address] [place] [address] Kimberley Guadalupe PharmD [address] [place] [address] documented as of this encounter Goals Goal [...] documented as of this encounter Care Teams Supervisor Asbestos Removal Relationship Specialty Start Date End Date Faith Kern MD [address] [place] [address] PCP - General Family Medicine 01/15/20 Kimberley Guadalupe PharmD [address] [place] [address] Pharmacist Internal Medicine 01/11/25 documented as of this encounter
--- OUTSIDE RECORDS SUMMARY | 2025-03-27 08:13 | XMS_ITS | Encounter Summary ---
Author Organization [facility] Address [address] [place] [address] Care Team Providers Care Orthotic Technician Name Role Phone Jayashree Monzon MD Primary Care Provider Veto Dobson MD Primary Care Provider Unavail able Faith Kern Primary Care Provider Unavailabl e Encounter Details Date Type Department Care Team Description 12/03/2017 Hospital Medical Records [address] [place] [address] Woody Champion MD Social History Tobacco Use Types Packs/Day [...] on filedocumented in this encounter Care Teams Orthotic Technician Relationship Specialty Start Date End Date Jayashree Monzon MD PCP - General Internal Medicine 02/18/13 08/14/18 Veto Wong MD PCP - General Internal Medicine 08/15/18 12/26/23 Faith Kern PCP - General Family Practice 12/27/23 documented as of this encounter
--- OUTSIDE RECORDS SUMMARY | 2025-03-27 08:13 | XMS_ITS | Encounter Summary ---
Author Organization [employer] Address [address] [facility] 7t [place] [address] Care Team Providers Care Locomotive Firer Name Role Phone Faith Kern MD Primary Care Provider [phone] Kimberley Guadalupe PharmD Unavailable [phone] Reason for Referral * Social Care Application (Routine) - Closed Specialty Diagnoses / Procedures Referred By Contac t Referred To Contact Diagnoses Diabetes mellitus due to underlying condition with hyperosmolarity without coma, without long-term current use of insulin (CMS/HCC) Faith Kern MD [address] [place] [address] Phone: tel: fax: El[address] [place] [address] fax: Referral ID Status Reason Start Date Expiration Date V isits Requested Visits Authorized [id number] Closed Specialty Services Required 01/16/2023 07/15/2023 1 1 Encounter Details Date Type Department Care Team (Late st Contact Info) Description 01/16/2023 Orders Only [facility]EDS [address] [place], [place] [phone] Faith Kern MD [address] [place] [address] Diabetes mellitus due to underlying condition with [...] Description 05/04/2025 8:30 AM EDT Office Visit [facility] MED & PEDS [address] [place] [address] Faith Kern MD [address] [place] [address] 08/16/2025 3:00 PM EDT Medication Management [facility] MED & PEDS [address] [place] [address] Kimberley Guadalupe PharmD [address] [place] [address] Scheduled Referrals Name Type Priority Associated Diagnoses [...] Primary documented in this encounter Care Teams Locomotive Firer Relationship Specialty Start Date End Date Faith Kern MD [address] [place] [address] PCP - General Family Medicine 01/15/20 Kimberley Guadalupe, Rakesh [address] [place] [address] Pharmacist Internal Medicine 01/11/25 documented as of this encounter
--- OUTSIDE RECORDS SUMMARY | 2025-03-27 08:13 | XMS_ITS | Encounter Summary ---
Author Organization [facility] Address [address] [place] [address] Care Team Providers Care Sales Floor Associate Name Role Phone Jayashree Monzon MD Primary Care Provider Veto Dobson MD Primary Care Provider Unavail able Faith Kern Primary Care Provider Unavailabl e Encounter Details Date Type Department Care Team Description 12/02/2017 Hospital Medical Records [address] [place] [address] Jayashree Monzon MD Social History Tobacco Use [...] on filedocumented in this encounter Care Teams Sales Floor Associate Relationship Specialty Start Date End Date Jayashree Monzon MD PCP - General Internal Medicine 02/18/13 08/14/18 Veto Wong MD PCP - General Internal Medicine 08/15/18 12/26/23 Faith Kern PCP - General Family Practice 12/27/23 documented as of this encounter
== END 2025-03-27 08:09 | disposition home or self-care (01) ==
LOC: HO.MAMMO 08:08
PROVIDERS: PCP Student in an Organized Health Care Education/Training Program; Visit Provider Student in an Organized Health Care Education/Training Program
DX: Z12.31 Encounter for screening mammogram for malignant neoplasm of breast (principal)
CPT/HCPCS: 77063; 77067

== ENCOUNTER → 2025-03-27 08:30 | Outpatient (BNV) | payer OTHER, SELFPAY | PROVIDERS: PCP Student in an Organized Health Care Education/Training Program; Visit Provider Internal Medicine | DX: Z12.31 Encounter for screening mammogram for malignant neoplasm of breast (principal) | CPT/HCPCS: 77063; 77067 ==

== ENCOUNTER 2025-04-12 11:17 | Outpatient (REF) | payer OTHER, SELFPAY ==
--- NOTE | ~2025-04-12 | US_ITS ---
EXAMINATION: MM DIAGNOSTIC DIGITAL BREAST TOMOSYNTHESIS, LEFT Limited left breast ultrasound. CLINICAL INFORMATION: Call back from screening for asymmetry in the superior left breast on MLO view. COMPARISON: Mammography: [facility] on PACS. TECHNIQUE: Digital breast tomosynthesis is performed in both the craniocaudal and mediolateral oblique views along with computer-aided detection (CAD). Synthesized 2D images are generated from the tomosynthesis. FINDINGS: There are scattered areas of fibroglandular density (ACR BI-RADS breast composition Category b). Asymmetry superior breast anterior depth left MLO view does not persist on additional imaging projections and likely represented overlapping breast tissue. There are no significant masses, abnormal calcifications, or other abnormalities. Targeted color Doppler ultrasound scanning from 10-1 o'clock demonstrates normal fibronodular breast tissue. There is no sonographic abnormal findings. US/US breast LT limited mamm only IMPRESSION: No mammographic evidence of malignancy. ASSESSMENT: BI-RADS BI-RADS 1 - Negative RECOMMENDATION: 1 year F/U Results were provided to the patient at time of visit by the technologist. This patient's information was entered into a reminder system with a target due date for their next mammogram. Electronically signed by: Sabine Luna DO 04/12/2025 12:46 PM EDT
== END 2025-04-12 11:18 | disposition home or self-care (01) ==
LOC: HO.MAMMO 11:17
PROVIDERS: PCP Student in an Organized Health Care Education/Training Program; Visit Provider Student in an Organized Health Care Education/Training Program
DX: R92.8 Other abnormal and inconclusive findings on diagnostic imaging of breast (principal)
CPT/HCPCS: 76642; 77061; 77065

== ENCOUNTER → 2025-04-12 11:30 | Outpatient (BNV) | payer OTHER, SELFPAY | PROVIDERS: PCP Student in an Organized Health Care Education/Training Program; Visit Provider Internal Medicine | DX: R92.8 Other abnormal and inconclusive findings on diagnostic imaging of breast (principal) | CPT/HCPCS: 76642; 77061; 77065 ==

== ENCOUNTER 2025-06-24 14:35 | Outpatient (REF) | payer OTHER, SELFPAY ==
--- OUTSIDE RECORDS SUMMARY | 2025-06-24 15:13 | XMS_ITS | Clinical Summary ---
Author Organization 175 [facility] Address [address] [place] [address] Phone Care Team Providers Care Domestic Cleaner Name Role Phone Faith Kern MD Primary Care Provider [phone] Allergies Active Allergy Reactions Criticality Noted Date Comments Lisinopril 06/09/2025 Medications ketoconazole (NIZORAL) 2 % cream Apply topically 1 (one) time each day. 60 g 2 Active Encounters Date Type Department Care Team Description 06/09/2025 3:30 PM EDT Office Visit Orthopedic Surgery [facility] [address] [facility] [address] [place] [id number] Armand Max, DPM Tinea pedis of both feet (Primary Dx); Dermatophytosis of nail; Pain in toe of right foot; Pain in toe of left foot; Diabetic mononeuropathy simplex (CMS/HCC V24, CMS/HCC V28) from Last 3 Months Surgical History Surgery Date Site/Laterality Comments SECTION PROCEDURE: CO DELIVERY ONLY COLONOSCOPY 01/26/13 PROCEDURE: CO COLONOSCOPY STOMA W/RMVL GABRIELLE POLYP/OTH LES SNARE; COMMENT: small polyp @35cm-> cold snare-> serrated hyperplastic ESOPHAGOGASTRODUODENOSCOPY 01/26/13 PROCEDURE: CO EGD TRANSORAL BIOPSY SINGLE/MULTIPLE; COMMENT: mosaic gastric mucosa- r/ h.pylori - hpylori positive BREAST BIOPSY PROCEDURE: BX BREAST; PERC NEEDLE CORE W/IMAG GUID; COMMENT: rt. breast bx. benign-10 yrs. ago BREAST SURGERY PROCEDURE: CO UNLISTED PROCEDURE BREAST; COMMENT: removed lump rt. breast Medical History Medical History Date Comments Seborrheic dermatitis, unspecified 01/29/2006 DX:Seborrheic dermatitis, unspecified Type II or unspecified type diabetes mellitus with unspecified complication, not stated as uncontrolled DX:Type II or unspecified t ype diabetes mellitus with unspecified complication, not stated as uncontrolled Essential hypertension, benign 01/29/2006 D X:Essential hypertension, benign Unspecified chronic liver di sease without mention of alcohol 01/29/2006 DX:Unspecified chronic liver disease without mention of alcohol Hypertriglyceridemia 08/01/2015 DX:Hypertri glyceridemia Family History Medical History Relation Name Comments Diabetes Father Other cancer Father lymph nodes Cataracts Mother Glaucoma Mother Hypertension Mother gluacoma Blindness Neg Hx Breast cancer Neg Hx Macular degeneration Neg Hx Ovarian cancer Neg Hx Strabismus Neg Hx Uterine cancer Neg Hx Relation Name Status Comments Father Mother Social History Tobacco Use Types Packs/Day Years Used Date Smoking Tobacco: Never Smokeless Tobacco: Never Alcohol Use Standard Drinks/Week Comments Yes 0 (1 standard drink = 0.6 oz pur e alcohol) Comments Unknown Sex and Gender Information Value Date Recorded Sex Assigned at Not on file Legal Sex Female 5:46 AM EST Gender Identity Not on file Sexual Orientation Not on file Obstetrics History Plan of Treatment Upcoming Encounters Date Type Department Care Team (Late st Contact Info) Description 09/09/2025 2:45 PM EDT Office Visit Orthopedic Surgery - [place] [phone] [phone] Armand Max, DPM [address] [phone] Health Maintenance Due Date Last Done Comments Diabetes: Annual GFR (Glomerular Filtration Rate) 1965 Diabetes: Annual Foot Exam 1975 Diabetes: Annual Retina Eye Exam 1975 Hepatitis A Vaccines (1 of 2 - Risk 2-dose series) 1984 Cervical Cancer Screening: Pap Smear 1986 Breast Cancer Screening 11/28/2021 11/28/2019, 08/03 Diabetes: Annual Urine Albumin-Creatinine Ratio (uACR) 02/05/2024 HIV Screening 02/05/2024 Hepatitis C Screening 02/05/2024 Hypertension/CHF/CAD Annual BMP Blood Test 02/05/2024 Social Influencers of Health Screening 02/05/2024 COVID-19 Vaccine ( season) 2024 10/13/2021, 12/09/2020, 11/09/2020 Depression Screening 11/11/2024 Influenza Vaccine (#1) 2025 4, 08/08/2023, 08/02/2022, Additional history exists Diabetes: Blood Sugar Control Test (HGBA1C) 12/01/2025 05/31/2025 Colorectal Cancer Screening: FIT-DNA (Cologuard) 01/18/2027 01/19/2024 Cholesterol Screening (Lipid Panel) 11/26/2029 11/26/2024 DTaP,Tdap,and Td Vaccines (3 - Td or Tdap) 04/21/2031 04/21/2021, 03/11/2009 RSV Immunization Adult Patients (1 - 1-dose 75+ series) 2040 Zoster Vaccines Completed 02/16/2022, 12/13/2021 Pneumococcal Vaccine: 50+ Years Completed 08/02/2022, 12/03/2017, 03/18/2009 Hepatitis B Vaccines Completed 11/22/2022, 09/24/20 HIB Vaccines Aged Out No longer eligi ble based on patient's age to complete this topic HPV Vaccines Aged Out No longer eligi ble based on patient's age to complete this topic IPV Vaccines Aged Out No longer eligi ble based on patient's age to complete this topic MMR Vaccines Aged Out No longer eligi ble based on patient's age to complete this topic Meningococcal ACWY Vaccine Aged Out N o longer eligible based on patient's age to complete this topic Meningococcal B Vaccine Aged Out No l onger eligible based on patient's age to complete this topic RSV Immunization Patients Under 20 months Aged Out No longer eligible based on patient's age to complete this topic Varicella Vaccines Aged Out No longer eligible based on patient's age to complete this topic Procedures Procedure Name Priority Date/Time Associated Diagnosis Comments SCR MAMMO BI INCL CAD Routine 11/28/2019 12:28 PM EST Encounter for screening mammogram for malignant neoplasm of breast from Last 3 Months or Most Recently Relevant to Health Maintenance Results * SCR MAMMO BI INCL CAD (11/28/2019 12:28 PM EST) Anatomical Region Laterality Modality Radiographic Sandra ging 02/11/2019 1:32 PM EDT Narrative 11/29/2019 4:51 PM EST This is a summary report. The complete report is available in the patient's medical record. If you cannot access the medical record, please contact the sending organization for a detailed fax or copy. Full field digital screening mammography, reviewed with CAD and compared to previous. The breast tissue is heterogeneously dense, limiting sensitivity. No suspicious mass, architectural distortion or suspicious calcifications are identified. IMPRESSION: : Dense breast tissue, limiting the sensitivity of mammography. No mammographic evidence of malignancy. BIRADS 1-Negative; N. 5 year breast cancer risk assessment N/A Lifetime breast cancer risk assessment N/A Breast cancer risk category Low (<15%) Procedure Note Cecily Hartmann MD - 10/30/2022 This is a summary report. The complete report is available in thepatient's medical record. If you cannot access the medical record, pleasecontact the sending organization for a detailed fax or copy. Full field digital screening mammography, reviewed with CAD and comparedto previous. The breast tissue is heterogeneously dense, limitingsensitivity. No suspicious mass, architectural distortion or suspiciouscalcifications are identified. IMPRESSION: : Dense breast tissue, limiting the sensitivity of mammography. Nomammographic evidence of malignancy. BIRADS 1-Negative; N. 5 year breast cancer risk assessment N/A Lifetime breast cancer risk assessment N/A Breast cancer risk category Low (<15%) Jaja IBARRA IMG XR PROCEDURES Final Result from Last 3 Months or Most Recently Relevant to Health Maintenance Insurance Care Teams Domestic Cleaner Relationship Specialty Start Date End Date Faith Kern MD [address] [place] [id number] PCP - General 12/27/23
--- OUTSIDE RECORDS SUMMARY | 2025-06-24 15:13 | XMS_ITS | Clinical Summary ---
Author Organization [employer] Address [address] [facility] [address] [place] [address] Care Team Providers Care Blade Worker Name Role Phone Faith Kern MD Primary Care Provider [phone] Kimberley Guadalupe PharmD Unavailable [phone] Allergies Active Allergy Reactions Criticality Noted Date Comments Lisinopril Itching Low 11/15/2022 hives Shellfish-Derived Products Hives Low 3 Medications valsartan (Diovan) 80 MG tablet TAKE ONE TABLET DAILY 022 Active cloNIDine (Catapres) 0.1 MG tablet TAKE ONE TABLET BY MOUTH TWICE DAILY TWICE DAILY IN THE MORNING AND AT BEDTIME Active dorzolamide (Trusopt) 2 % ophthalmic solution PLACE ONE DROP IN EACH EYE TWICE DAILY Active latanoprost (Xalatan) 0.005 % ophthalmic solution PLACE ONE DROP IN EACH EYE AT BEDTIME Active Blood Glucose Monitoring Suppl (FreeStyle glucose monitoring) kitIndications :Type 2 diabetes mellitus without complication, with long-term current use of insulin ([facility]) Check sugars BID 1 each 023 Active acetaminophen (Tylenol 8 Hour) 650 MG ER tablet TAKE ONE TABLET EVERY 8 HOURS NEEDED 60 tablet 5 024 Active Farxiga 5 MG TAKE ONE TABLET EVERY MORNING BEFORE BREAKFAST 90 tablet 3 024 Active fluticasone (Flonase) 50 MCG/ACT nasal spray Administer 1 spray into each nostril Once per day. 16 g 3 024 Active Lantus SoloStar 100 UNIT/ML penIndications :Type 2 Diabetes Mellitus INJECT 30 UNITS SUBCUTANEOUSLY AT BEDTIME 3 mL 3 025 Active brimonidine (AlphaGAN) 0.2 % ophthalmic solution PLACE ONE DROP IN THE RIGHT EYE TWICE DAILY 024 Active chlorthalidone (Hygroton) 25 MG tablet Take 0.5 tablets (12.5 mg) by mouth in the morning. 025 Active atorvastatin (Lipitor) 80 MG tablet Take 1 tablet (80 mg) by mouth Once per day. 30 tablet 11 025 Active Lancets 33G misc Test blood sugar up to 3 times daily 100 each 11 025 Active Aspirin Adult Low Strength 81 MG EC tablet TAKE ONE TABLET EVERY MORNING 30 tablet 025 Active amLODIPine (Norvasc) 10 MG tablet TAKE ONE TABLET EVERY MORNING 30 tablet 5 025 Active Trulicity 0.75 MG/0.5ML solution auto-injector INJECT ONE PEN (=0.75MG) SUBCUTANEOUSLY ONCE A WEEK DIRECTED 2 mL 2 025 Active insulin pen needle (Pentips) 32G x 4 mm misc USE ONE EVERY DAY. 100 each 3 025 Active FREESTYLE LITE test stripIndicatio ns:Type 2 diabetes mellitus without complication, with long-term current use of insulin ([facility]) TEST BLOOD SUGAR THREE TIMES DAILY 100 strip 1 025 Active cetirizine (ZyrTEC) 10 MG tablet TAKE ONE TABLET EVERY MORNING 90 tablet 1 025 Active hydrOXYzine HCl (Atarax) 25 MG tabletIndicati ons:Hypertensi on, unspecified type TAKE 1 OR 2 TABLETS BY MOUTH EVERY DAY NEEDED FOR ANXIETY. 60 tablet 3 025 Active hydrOXYzine HCl (Atarax) 25 MG tabletIndicati ons:Hypertensi on, unspecified type TAKE 1 OR 2 TABLETS BY MOUTH EVERY DAY NEEDED FOR ANXIETY. 60 tablet 3 023 2024 Discontinued(R eorder (will not trigger notification to Pharmacy)) ciprofloxacin- dexAMETHasone (CiproDEX) otic suspension Administer 4 drops into affected ear(s) 2 times daily for 7 days. 7.5 mL 025 2024 Active Problems Problem Noted Date Diagnosed Date [...] 06/11/2015 05/05/2024 Overview (11/15/2022): Mirena placed in 2014 Mirena placed in 2014 Encounters Date Type Department Care Team Description 06/14/2025 Orders Only [facility] [address] [place] [address] Faith Kern MD Adhesive capsulitis of right shoulder (Primary Dx) 06/03/[address] [facility] [address] [place] [address] Faith Kern MD 05/31/2025 11:00 AM EDT Office Visit [facility] [address] [place] [address] Faith Kern MD Primary hypertension (Primary Dx); Type 2 diabetes mellitus without complication, with long-term current use of insulin ([facility]); Hyperlipidemia, unspecified hyperlipidemia type; Right upper quadrant abdominal pain; Hypertension, unspecified type 05/31/2025 Travel 05/24/2025 Patient Outreach [facility] [address] [place] [phone] Faith Kern MD Pre-visit Planning (Pre visit planning LVM ) 05/19/2025 Orders Only [facility] [address] [place] [phone] Ya Velasco MD 04/27/2025 Patient Outreach [facility] [address] [place] [phone] Faith Kern MD Pre-visit Planning (SDOH screening negative and Tobacco screening negative) 04/06/2025 Results Follow-Up [facility] [address] [place] [address] Faith Kern MD BI Mammogram Screening Tomosynthesis Bilateral 03/27/[address] [facility] [address] [place] [address] Faith Kern MD 03/27/[address] [facility] [address] [place] [address] Faith Kern MD from Last 3 Months Immunizations Immunization Administration [...] Sign Reading Time Taken Comments Blood Pressure 147/75 05/31/2025 11:07 AM EDT Pulse 86 05/31/2025 11:07 AM EDT Temperature 36.7 C (98 F) 05/31/2025 11:07 AM EDT Respiratory Rate 18 05/31/2025 11:07 AM EDT Oxygen Saturation 98% 05/31/2025 11:07 AM EDT Inhaled Oxygen Concentration - - Weight 65.3 kg (144 lb) 05/31/2025 11:07 AM EDT Height 162.6 cm (5' 4 ) 05/31/2025 11:07 AM EDT Body Mass Index 24.72 05/31/2025 11:07 AM EDT Plan of Treatment Upcoming Encounters Date Type Department Care Team (Late st Contact Info) Description 08/16/2025 3:00 PM EDT Medication Management [facility] [address] [place] [address] Kimberley Guadalupe, PharmD [address] [place] [address] Health Maintenance Due Date Last Done Comments CT Colonography 1965 Colonoscopy 1965 FIT 1965 FOBT 1965 HIV Screening 1965 Sigmoidoscopy 1965 Alcohol/Substance Use Screening 1977 Hepatitis C Screening 1983 Hepatitis A Vaccines (1 of 2 - Risk 2-dose series) 1984 Diabetes: Foot Exam 06/21/2024 06/21/2023, COVID-19 Vaccine ( season) 2024 10/13/2021, 12/09/2020, 11/09/2020 Pap Smear 03/06/2025 03/06/2022 Influenza Vaccine (#1) 2025 4, 08/08/2023, 08/02/2022, Additional history exists Diabetes: Hemoglobin A1C 08/31/2025 025, 02/22/2025, 11/26/2024, Additional history exists Depression Screening 11/26/2025 11/26/2024, 11/26/19 25 Diabetes: Urine Protein Screening 11/26/2025 11/26/2024, 01/21/2023, 01/14/2020 Lipid Panel 11/26/2025 11/26/2024, 12/0 04/2023, 01/21/2023, Additional history exists Mammogram 04/12/2026 04/12/2025, 03/11, 03/21/2024, Additional history exists SDOH Screening 04/27/2026 04/27/2025 Eye Exam 05/18/2026 05/18/2025, 01/16/2007 Disability Screening 05/31/2026 05/31/2025 Tobacco Screening 05/31/2026 05/31/2025 Colorectal Cancer Screening 01/18/2027 FIT DNA/Cologuard 01/18/2027 01/19/2024 Cervical Cancer Screening 03/06/2027 HPV/Cotest 03/06/2027 03/06/2022 DTaP/Tdap/Td Vaccines (3 - Td or Tdap) 04/21/2031 04/21/2021, 03/11/2009 RSV Patients and Patients Aged 60 years or older (1 - 1-dose 75+ series) 2040 Zoster Vaccines Completed 02/16/2022, 12/13/2021 Pneumococcal Vaccine: 50+ Years Completed 08/02/2022, 12/03/2017, 03/18/2009 Hepatitis B Vaccines Completed 11/22/2022, 09/24/20 22 HIB Vaccines Aged Out No longer eligi [...] Author Blood Pressure < 140/90 Blood Pressure 147/75(2024 11:07 AM EDT) No Wesley Altman PharmD Hemoglobin A1c < 7 Result Component 8.5( 11:10 AM EDT) No Wesley Altman PharmD Procedures Procedure Name Priority Date/Time Associated Diagnosis Comments POCT GLYCATED HEMOGLOBIN, TOTAL Routine 05/31/2025 11:10 AM EDT Type 2 diabetes mellitus without complication, with long-term current use of insulin ([facility]) POCT GLUCOSE Routine 05/31/2025 11:10 AM EDT Type 2 diabetes mellitus without complication, with long-term current use of insulin ([facility]) HM DIABETES EYE EXAM Routine 05/18/2025 1:45 PM EDT BI US BREAST LIMITED LEFT Routine 04/12/2025 11:53 AM EDT BI MAMMOGRAM DIAGNOSTIC TOMOSYNTHESIS ADDED VIEW LEFT Routine 04/12/2025 11:20 AM EDT BI MAMMOGRAM SCREENING TOMOSYNTHESIS BILATERAL Routine 03/27/2025 8:30 AM EDT LIPID PANEL, STANDARD Routine 11/26/2024 9:47 AM EST Primary hypertension CREATININE, RANDOM URINE Routine 11/26/2024 9:29 AM EST LAB COLOGUARD COLON CANCER SCREEN Routine 01/19/2024 4:30 PM EDT Encounter for screening for malignant neoplasm of colon THINPREP IMAGING PAP AND HPV MRNA E6/E7 WITH REFLEX TO HPV 16,18/45 Routine 03/06/2022 9:04 AM EDT from Last 3 Months or Most Recently Relevant to Health Maintenance Results * (ABNORMAL) POCT HGB A1C (05/31/2025 11:10 AM EDT) Hemoglobin A1C 8.5(A) 4.0 - 5.7 % QC Media Lot # [id number] Lot# Expiration Date Blood 05/31/2025 11:1 0 AM EDT Faith Kern MD POINT OF CARE TEST ENTER/EDIT OR DERABLES Final Result * POCT Glucose (05/31/2025 11:10 AM EDT) Glucose Blood, POC 121 60 - 200 mg/dL QC Media Lot # [id number] Lot# Expiration Date ,025 Blood Capillary blood specimen / Unknown 05/31/2025 11:10 AM EDT Faith Kern MD POINT OF CARE TEST ENTER/EDIT OR DERABLES Final Result * Hm Diabetes Eye Exam (05/18/2025 1:45 PM EDT) Ya Velasco MD HEALTH MAINTENANCE Final Result * BI US Breast Limited Left (04/12/2025 11:53 AM EDT) Anatomical Region Laterality Modality Breast Left Ultrasound 04/12/2025 11:5 3 AM EDT Narrative 04/12/2025 12:49 PM EDT [facility] [address] [place] [address] Ultrasound Report Signed Patient: Susannah Herman MR#: [id number] 1 : 1965 Acct:[id number] Age/Sex: 59 / F ADM Date: 04/12/25 Loc: HO.MAMMO Attending Dr: Faith Kern MD Ordering Physician: Faith Kern MD Date of Service: 04/12/25 Procedure(s): US breast LT limited mamm only Accession Number(s): [id number] cc: Faith Kern MD EXAMINATION: MM DIAGNOSTIC DIGITAL BREAST TOMOSYNTHESIS, LEFT Limited left breast ultrasound. CLINICAL INFORMATION: Call back from screening for asymmetry in the superior left breast on MLO view. COMPARISON: Mammography: [facility] on PACS. TECHNIQUE: Digital breast tomosynthesis is performed in both the craniocaudal and mediolateral oblique views along with computer-aided detection (CAD). Synthesized 2D images are generated from the tomosynthesis. FINDINGS: There are scattered areas of fibroglandular density (ACR BI-RADS breast composition Category b). Asymmetry superior breast anterior depth left MLO view does not persist on additional imaging projections and likely represented overlapping breast tissue. There are no significant masses, abnormal calcifications, or other abnormalities. Targeted color Doppler ultrasound scanning from 10-1 o'clock demonstrates normal fibronodular breast tissue. There is no sonographic abnormal findings. US/US breast LT limited mamm only IMPRESSION: No mammographic evidence of malignancy. ASSESSMENT: BI-RADS BI-RADS 1 - Negative RECOMMENDATION: 1 year F/U Results were provided to the patient at time of visit by the technologist. This patient's information was entered into a reminder system with a target due date for their next mammogram. Electronically signed by: Sabine Luna DO 04/12/2025 12:46 PM EDT Dictated By: Sabine Luna DO Signed By: <Electronically signed by Sabine Luna DO in OV> 04/12/25 1246 DD/ 1153 TD/TT: 04/12/25 1202 Sales Operations: Procedure Note Donotuseinterpreter, Image - 04/12/2025 [place] [facility] [address] [place] [address] Ultrasound Report Signed Patient: Jake Herman#: [id number] 1 : 1965Acct:[id number] Age/Sex: 59 / FADM Date: 04/12/25 Loc: HO.MAMMO Attending Dr: aFith Kern MD Ordering Physician: Faith Kern MD Date of Service: 04/12/25 Procedure(s): US breast LT limited mamm only Accession Number(s): [id number] cc: Faith Kern MD EXAMINATION: MM DIAGNOSTIC DIGITAL BREAST TOMOSYNTHESIS, LEFT Limited left breast ultrasound. CLINICAL INFORMATION: Call back from screening for asymmetry in the superior left breast on MLO view. COMPARISON: Mammography: [facility] on PACS. TECHNIQUE: Digital breast tomosynthesis is performed in both the craniocaudal and mediolateral oblique views along with computer-aided detection (CAD). Synthesized 2D images are generated from the tomosynthesis. FINDINGS: There are scattered areas of fibroglandular density (ACR BI-RADS breast composition Category b). Asymmetry superior breast anterior depth left MLO view does not persist on additional imaging projections and likely represented overlapping breast tissue. There are no significant masses, abnormal calcifications, or other abnormalities. Targeted color Doppler ultrasound scanning from 10-1 o'clock demonstrates normal fibronodular breast tissue. There is no sonographic abnormal findings. US/US breast LT limited mamm only IMPRESSION: No mammographic evidence of malignancy. ASSESSMENT: BI-RADS BI-RADS 1 - Negative RECOMMENDATION: 1 year F/U Results were provided to the patient at time of visit by the technologist. This patient's information was entered into a reminder system with a target due date for their next mammogram. Electronically signed by: Sabine Luna DO 04/12/2025 12:46 PM EDT Dictated By: Sabine Luna DO Signed By: <Electronically signed by Sabine Luna DO in OV> 04/12/25 1246 DD/ 1153 TD/TT: 04/12/25 1202 Sales Operations: Faith Kern MD IMG US PROCEDURES Edited Result - Final * BI Mammogram Diagnostic Tomosynthesis added left (04/12/2025 11:20 AM EDT) Anatomical Region Laterality Modality Breast Left Mammography 04/12/2025 11:2 0 AM EDT Narrative 04/12/2025 12:49 PM EDT [facility] [address] [place] [address] Mammography Report Signed Patient: Susannah Herman MR#: [id number] 1 : 1965 Acct:[id number] Age/Sex: 59 / F ADM Date: 04/12/25 Loc: HO.MAMMO Attending Dr: Faith Kern MD Ordering Physician: Faith Kern MD Results: 1Negati ve Date of Service: 04/12/25 Follow Up: 1 Year From Orig inal Mammogram Procedure(s): MM tomosynthesis added views L Accession Number(s): [id number] cc: Faith Kern MD EXAMINATION: MM DIAGNOSTIC DIGITAL BREAST TOMOSYNTHESIS, LEFT Limited left breast ultrasound. CLINICAL INFORMATION: Call back from screening for asymmetry in the superior left breast on MLO view. COMPARISON: Mammography: Priors on PACS. TECHNIQUE: Digital breast tomosynthesis is performed in both the craniocaudal and mediolateral oblique views along with computer-aided detection (CAD). Synthesized 2D images are generated from the tomosynthesis. FINDINGS: There are scattered areas of fibroglandular density (ACR BI-RADS breast composition Category b). Asymmetry superior breast anterior depth left MLO view does not persist on additional imaging projections and likely represented overlapping breast tissue. There are no significant masses, abnormal calcifications, or other abnormalities. Targeted color Doppler ultrasound scanning from 10-1 o'clock demonstrates normal fibronodular breast tissue. There is no sonographic abnormal findings. MM/MM tomosynthesis added views L IMPRESSION: No mammographic evidence of malignancy. ASSESSMENT: BI-RADS BI-RADS 1 - Negative RECOMMENDATION: 1 year F/U Results were provided to the patient at time of visit by the technologist. This patient's information was entered into a reminder system with a target due date for their next mammogram. Electronically signed by: Sabine Luna DO 04/12/2025 12:46 PM EDT Dictated By: Sabine Luna DO Signed By: <Electronically signed by Sabine Luna DO in OV> 04/12/25 1246 DD/ 1120 TD/TT: 04/12/25 1142 Sales Operations: Procedure Note Donotuseinterpreter, Image - 04/12/2025 [place] [facility] [address] [place] [address] Mammography Report Signed Patient: Jake Herman#: [id number] 1 : 1965Acct:[id number] Age/Sex: 59 / FADM Date: 04/12/25 Loc: HO.MAMMO Attending Dr: Faith Kern MD Ordering Physician: Faith Kern MDResults: 1Negati ve Date of Service: 04/12/25Follow Up: 1 Year From Orig inal Mammogram Procedure(s): MM tomosynthesis added views L Accession Number(s): [id number] cc: Faith Kern MD EXAMINATION: MM DIAGNOSTIC DIGITAL BREAST TOMOSYNTHESIS, LEFT Limited left breast ultrasound. CLINICAL INFORMATION: Call back from screening for asymmetry in the superior left breast on MLO view. COMPARISON: Mammography: Priors on PACS. TECHNIQUE: Digital breast tomosynthesis is performed in both the craniocaudal and mediolateral oblique views along with computer-aided detection (CAD). Synthesized 2D images are generated from the tomosynthesis. FINDINGS: There are scattered areas of fibroglandular density (ACR BI-RADS breast composition Category b). Asymmetry superior breast anterior depth left MLO view does not persist on additional imaging projections and likely represented overlapping breast tissue. There are no significant masses, abnormal calcifications, or other abnormalities. Targeted color Doppler ultrasound scanning from 10-1 o'clock demonstrates normal fibronodular breast tissue. There is no sonographic abnormal findings. MM/MM tomosynthesis added views L IMPRESSION: No mammographic evidence of malignancy. ASSESSMENT: BI-RADS BI-RADS 1 - Negative RECOMMENDATION: 1 year F/U Results were provided to the patient at time of visit by the technologist. This patient's information was entered into a reminder system with a target due date for their next mammogram. Electronically signed by: Sabine Luna DO 04/12/2025 12:46 PM EDT Dictated By: Sabine Luna DO Signed By: <Electronically signed by Sabine Luna DO in OV> 04/12/25 1246 DD/ 1120 TD/TT: 04/12/25 1142 Sales Operations: Faith Kern MD IMG BI PROCEDURES Edited Result - Final * BI Mammogram Screening Tomosynthesis Bilateral (03/27/2025 8:30 AM EDT) Anatomical Region Laterality Modality Breast Bilateral Mammography 03/27/2025 8:30 AM EDT Narrative 04/03/2025 3:07 PM EDT [facility] [address] [place] [address] Mammography Report Signed Patient: Susannah Herman MR#: [id number] 1 : 1965 Acct:[id number] Age/Sex: 59 / F ADM Date: 03/27/25 Loc: HO.MAMMO Attending Dr: Faith Kern MD Ordering Physician: Faith Kern MD Results: 0Incomp lete: Needs Additional Imaging Evaluation Date of Service: 03/27/25 Follow Up: Additional Imagi ng Procedure(s): MM tomosynthesis screening BI Accession Number(s): [id number] cc: Faith Kern MD EXAMINATION: MM SCREENING DIGITAL BREAST TOMOSYNTHESIS, BILATERAL CLINICAL INFORMATION: Screening. Asymptomatic. COMPARISON: Mammography: Comparison is made with available priors TECHNIQUE: Digital breast mammography with tomosynthesis is performed in both the craniocaudal and mediolateral oblique views along with computer-aided detection (CAD). FINDINGS: There are scattered areas of fibroglandular density (ACR BI-RADS breast composition Category b). Right: There are no significant masses, abnormal calcifications, or other abnormalities. Left: Asymmetry superior breast anterior depth on MLO view. No suspicious calcifications or other abnormal findings. MM/MM tomosynthesis screening BI IMPRESSION: Additional imaging is recommended ASSESSMENT: BI-RADS BI-RADS 0 - Incomplete: Needs additional Imaging. RECOMMENDATION: 1. Additional views of the left breast 2. Targeted ultrasound if warranted after review of the additional views. 3. Radiology department staff will contact the patient for additional imaging. Additional Imaging required This examination should not preclude the clinical evaluation of a suspicious palpable abnormality. This patient's information was entered into a reminder system with a target due date for their next mammogram. Electronically signed by: Sabine Luna DO 04/03/2025 03:04 PM EDT Dictated By: Sabine Luna DO Signed By: <Electronically signed by Sabine Luna DO in OV> 04/03/25 1504 DD/ 0830 TD/TT: 03/27/25 0840 Sales Operations: Procedure Note Donotuseinterpreter, Image - 04/03/2025 [facility] [address] [place] [address] Mammography Report Signed Patient: Jake Herman#: [id number] 1 : 1965Acct:[id number] Age/Sex: 59 / FADM Date: 03/27/25 Loc: HO.MAMMO Attending Dr: Faith Kern MD Ordering Physician: Faith Kern MDResults: 0Incomp lete: Needs Additional Imaging Evaluation Date of Service: 03/27/25Follow Up: Additional Imagi ng Procedure(s): MM tomosynthesis screening BI Accession Number(s): [id number] cc: Faith Kern MD EXAMINATION: MM SCREENING DIGITAL BREAST TOMOSYNTHESIS, BILATERAL CLINICAL INFORMATION: Screening. Asymptomatic. COMPARISON: Mammography: Comparison is made with available priors TECHNIQUE: Digital breast mammography with tomosynthesis is performed in both the craniocaudal and mediolateral oblique views along with computer-aided detection (CAD). FINDINGS: There are scattered areas of fibroglandular density (ACR BI-RADS breast composition Category b). Right: There are no significant masses, abnormal calcifications, or other abnormalities. Left: Asymmetry superior breast anterior depth on MLO view. No suspicious calcifications or other abnormal findings. MM/MM tomosynthesis screening BI IMPRESSION: Additional imaging is recommended ASSESSMENT: BI-RADS BI-RADS 0 - Incomplete: Needs additional Imaging. RECOMMENDATION: 1. Additional views of the left breast 2. Targeted ultrasound if warranted after review of the additional views. 3. Radiology department staff will contact the patient for additional imaging. Additional Imaging required This examination should not preclude the clinical evaluation of a suspicious palpable abnormality. This patient's information was entered into a reminder system with a target due date for their next mammogram. Electronically signed by: Sabine Luna DO 04/03/2025 03:04 PM EDT Dictated By: Sabine Luna DO Signed By: <Electronically signed by Sabine Luna DO in OV> 04/03/25 1504 DD/ 0830 TD/TT: 03/27/25 0840 Sales Operations: Faith Kern MD IMG BI PROCEDURES Edited Result - Final * (ABNORMAL) Lipid Panel, Standard (11/26/2024 9:47 AM EST) Triglycerides 208(H) <150 mg/dL [facility] Comment:Desirable Triglyceri de: less than 150 mg/dLBorderline High Triglyceride 150-199 mg/dLHigh Triglyceride: 200-499 mg/dLVery High Triglyceride: greater than or equal to 5OO mg/dL Cholesterol 168 <200 mg/dL [facility] Comment:Desirable Cholestero l: less than 200 mg/dLBorderline High Cholesterol: 200-239 mg/dLHigh Cholesterol: greater than 239 mg/dL LDL Cholesterol Calculated 83 <100 mg/dL [facility] Comment:Desirable LDL: less than 100 mg/dLNear Optimal/Above Optimal LDL: 110- 129 mg/dLBorderline High LDL: 130-159 mg/dLHigh LDL: 160-189 mg/dLVery High LDL: greater than or equal to 190 mg/dL HDL Cholesterol 44 >40 mg/dL [facility] Comment:Desirable HDL: great er than 40 mg/dL Note: This HDL assay may give artificially low results in patients with liver disease. Blood Venous blood specimen / Unknown 11/26/2024 9:47 AM EST 11/26/2024 2:00 PM EST Faith Kern MD LAB BLOOD ORDERABLES Final Resul t [facility] [address] [place] [address] [phone] * Creatinine, Random Urine (11/26/2024 9:29 AM EST) Creatinine, Urine 49.33 mg/dL [facility] 11/26/2024 9:29 AM EST 11/26/2024 1:58 PM EST us Generic External Data Provider LAB URINE ORDERAB LES Final Result [facility] [address] [place] [address] [phone] * Cologuard?? colon cancer screening (01/19/2024 4:30 PM EDT) Cologuard Result Negative Negative 01/26/20 24 8:56 AM EDT [facility] (CLIA #:[id number]) Comment: NEGATIVE TEST RESULT. A negative Cologuard result indicates a low likelihood that a colorectal cancer (CRC) or advanced adenoma (adenomatous polyps with more advanced pre-malignant features) is present. The chance that a person with a negative Cologuard test has a colorectal cancer is less than 1 in 1500 (negative predictive value >99.9%) or has an advanced adenoma is less than 5.3% (negative predictive value 94.7%). These data are based on a prospective cross-sectional study of 10,000 individuals at average risk for colorectal cancer who were screened with both Cologuard and colonoscopy. (Jole Jacobo al, N Engl J Med 2014;370(14):7220-0089) The normal value (reference range) for this assay is negative. COLOGUARD RE-SCREENING RECOMMENDATION: Periodic colorectal cancer screening is an important part of preventive healthcare for asymptomatic individuals at average risk for colorectal cancer. Following a negative Cologuard result, the [place] [employer] and U.S. Multi-Society Task Force screening guidelines recommend a Cologuard re-screening interval of 3 years. References: [place] [employer] Guideline for Colorectal Cancer Screening: https://www.cancer.org/cancer/lckzh-kxujhz-lycafw/ooscuqwwn-wnrfbrzsn-qflnfui/ac s-rec ommendations.html.; Misael DK, Bola CR, Peace EvansK, Colorectal Cancer Screening: Recommendations for Physicians and Patients from the U.S. Multi-Society Task Force on Colorectal Cancer Screening , Am J Gastroenterology 2017; 112:3789-2313. TEST DESCRIPTION: Composite algorithmic analysis of stool DNA-biomarkers with hemoglobin immunoassay. Quantitative values of individual biomarkers are not [...] (Joel Jacobo al, N Engl J Med 2014;370(14):6902-7283.) Cologuard may produce a false negative or false positive result (no colorectal cancer or precancerous polyp present at colonoscopy follow up). A negative Cologuard test result does not guarantee the absence of CRC or advanced adenoma (pre-cancer). The current Cologuard screening interval is every 3 years. ([place] [employer] and U.S. Multi-Society Task Force). Cologuard performance data in a 10,000 patient pivotal study using colonoscopy as the reference method can be accessed at the following location: www.[employer]/results. Additional description of the Cologuard test process, warnings and precautions can be found at www.Isagenrd.com. Stool specimen (specimen) 01/19/2024 4:30 PM EDT 01/22/2024 2:01 PM EDT Faith Kern MD LAB MOLECULAR DIAGNOSTICS ORDERA BLES Final Result [facility] (CLIA #:[id number]) [place] [address], * THINPREP TIS PAP AND HPV mRNA E6/E7 WITH REFLEX TO HPV 16,18/45 (03/06/2022 9:04 AM EDT) Clinical Information: [facility] COMMENT SEE COMMENT [facility] Comment: EXPLANATORY NOTE: The Pap is a screening test for cervical cancer. It is not a diagnostic test and is subject to false negative and false positive results. It is most reliable when a satisfactory sample, regularly obtained, is submitted with relevant clinical findings and history, and when the Pap result is evaluated along with historic and current clinical information. COMMENT: This Pap test has been evaluated with computer assisted technology. [facility] Sales Associate Cashier: SEE COMMENT [facility] Comment: ED, CT(ASCP) CT screening location: [place] [address] HPV nRNA E6/E7 Not Detected Not Detected [facility] [employer] [facility] Comment: Methodology: Manager Product Design-Mediated Amplification This assay detects E6/E7 viral messenger RNA (mRNA) from 14 high-risk HPV types (16,18,31,33,35,39,45,51,52,56,58,59,66,68). The analytical performance characteristics of this assay have been determined by [employer]. The modifications have not been cleared or approved by the FDA. This assay has been validated pursuant to the CLIA regulations and is used for clinical purposes. For additional information, please refer to http://education.Boardwalktech.[employer]/faq/NBY700n6 (This link if provided for information/ educational purposes only.) Interpretation/Re sult: Negative for intraepithelial lesion or malignancy. [facility] LMP: [facility] Prev. BX: NONE GIVEN [facility] Prev. PAP: NONE GIVEN [facility] SOURCE: None given [facility] Statement Of Adequacy: SEE COMMENT [facility] Comment: Satisfactory for evaluation. Endocervical/transformation zone component present. 03/06/2022 9:04 AM EDT us Salima Smith CNM LAB PATHOLOGY ORDERABLES Final Result [facility] [address] from Last 3 Months or Most Recently Relevant to Health Maintenance Insurance , [address] [place] [address] Care Teams Blade Worker Relationship Specialty Start Date End Date Faith Kern MD [address] [place] [id number] PCP - General Family Medicine 01/15/20 Kimberley Guadalupe, MelissaD [address] [place] [address] Pharmacist Internal Medicine 01/11/25
--- OUTSIDE RECORDS SUMMARY | 2025-06-24 15:13 | XMS_ITS | Encounter Summary ---
Author Organization [facility] Address [address] [place] [address] Phone Care Team Providers Care Commercial Lending Assistant Name Role Phone Faith Kern MD Primary Care Provider [phone] Encounter Details Date Type Department Care Team (Late st Contact Info) Description 10/24/2021 Documentation Only [facility] [address] [place] [address] Emir Cisse MD Social History [...] on filedocumented in this encounter Care Teams Commercial Lending Assistant Relationship Specialty Start Date End Date Faith Kern MD [address] [place] [address] PCP - General Family Medicine 07/24/21 documented as of this encounter
[2025-06-24 17:58] LABS: Blood Urea Nitrogen 39 mg/dL (9-16)
== END 2025-06-24 14:36 | disposition home or self-care (01) ==
LOC: HO.CHCLDS 14:35
PROVIDERS: Visit Provider Internal Medicine Hypertension Specialist
DX: N18.4 Chronic kidney disease, stage 4 (severe) (principal)
CPT/HCPCS: 36415; 84520

== ENCOUNTER 2025-07-07 08:14 | Outpatient (REF) | payer OTHER, SELFPAY ==
--- NOTE | ~2025-07-07 | US_ITS ---
CLINICAL HISTORY: right upper quad pain US abdomen limited Comparison: None provided Findings: Liver measures 15 cm in long axis. Diffuse increased echotexture throughout the liver without focal lesion or intrahepatic biliary ductal dilatation. Common bile duct is within normal limits. Gallbladder is unremarkable without gallbladder wall thickening, pericholecystic fluid, or cholelithiasis. Negative sonographic Haynes's sign. Pancreas and right kidney are unremarkable. No free fluid. IMPRESSION: 1. Echogenic liver. This can be seen with fatty infiltration or medical liver disease. 2. Otherwise, negative ultrasound of the right upper quadrant of the abdomen. This document has been electronically signed by: Alexis Dowell MD on 07/07/2025 09:00:24
--- OUTSIDE RECORDS SUMMARY | 2025-07-07 08:36 | XMS_ITS | Encounter Summary ---
Author Organization [employer] Address [address] [facility] 7t [place] [address] Care Team Providers Care Associate Publisher Name Role Phone Faith Kern MD Primary Care Provider [phone] Kimberley Guadalupe PharmD Unavailable Reason for Visit * Reason Comments Med Refill Encounter Details Date Type Department Care Team ([facility] st Contact Info) Description 03/03/2024 Refill [facility]EDS [address] [place] [address] Faith Kern MD [address] [place] [address] Social History Tobacco Use Types Packs/Day Years [...] Description 08/16/2025 3:00 PM EDT Medication Management [facility] MED & PEDS [address] [place] [address] Kimberley Guadalupe PharmD [address] [place] [address] documented as of this encounter Goals Goal Patient Goal Type Associated Problems Recent Progress Patient-Stated? Author Blood Pressure < 140/90 Blood Pressure 147/75(2024 11:07 AM EDT) No Wesley Altman PharmStephanie Hemoglobin A1c < 7 Result Component 8.5( 11:10 AM EDT) No Wesley Altman, PharmD documented as of this encounter Visit Diagnoses Not on filedocumented in this encounter Additional Health Concerns Assessment Noted Time PHQ-9 Depression Total Score: 8 01/22/20 23 9:32 AM EDT documented as of this encounter Care Teams Associate Publisher Relationship Specialty Start Date End Date Faith Kern MD [address] [place], [place] [phone] PCP - General Family Medicine 01/15/20 Kimberley Guadalupe PharmD [address] [place] [address] Pharmacist Internal Medicine 01/11/25 documented as of this encounter
--- OUTSIDE RECORDS SUMMARY | 2025-07-07 08:36 | XMS_ITS | Encounter Summary ---
Author Organization [employer] Address [address] [facility] 7t [place] [address] Care Team Providers Care Hand Etcher Name Role Phone Faith Kern MD Primary Care Provider [phone] Kimberley Guadalupe PharmD Unavailable Encounter Details Date Type Department Care Team (Late st Contact Info) Description 05/19/2025 Orders Only [facility] [address] [place] [address] Provider, MD Ya Social History Tobacco Use Types Packs/Day Years [...] Description 08/16/2025 3:00 PM EDT Medication Management [facility] MED & PEDS [address] [place] [address] Kimberley Guadalupe PharmD [address] [place] [address] documented as of this encounter Goals Goal Patient Goal Type Associated Problems Recent Progress Patient-Stated? Author Blood Pressure < 140/90 Blood Pressure 147/75(2024 11:07 AM EDT) No Wesley Altman, PharmD Hemoglobin A1c < 7 Result Component 8.5( 11:10 AM EDT) No Wesley Altman, PharmD documented as of this encounter Procedures Procedure Name Priority Date/Time Associated Diagnosis Comments DIABETES EYE EXAM Routine 05/18/2025 1:45 PM EDT documented in this encounter Results * Diabetes Eye Exam (05/18/2025 1:45 PM EDT) us Historical Provider HEALTH MAINTENANCE Final Result documented in this encounter Visit Diagnoses Not on filedocumented in this encounter Additional Health Concerns Assessment Noted Time PHQ-9 Depression Total Score: 8 11/26/19 25 9:20 AM EST documented as of this encounter Care Teams Hand Etcher Relationship Specialty Start Date End Date Faith Kern MD [address] [place] [address] PCP - General Family Medicine 01/15/20 Kimberley Guadalupe PharmD [address] [place] [address] Pharmacist Internal Medicine 01/11/25 documented as of this encounter
--- OUTSIDE RECORDS SUMMARY | 2025-07-07 08:36 | XMS_ITS | Encounter Summary ---
Author Organization [employer] Address [address] [facility] [address]t [place] [address] Care Team Providers Care Territory Account Representative Name Role Phone Faith Kern MD Primary Care Provider [phone] Kimberley Guadalupe PharmD Unavailable [phone] Reason for Referral * Social Care Application (Routine) - Closed Specialty Diagnoses / Procedures Referred By Contac t Referred To Contact Diagnoses Diabetes mellitus due to underlying condition with hyperosmolarity without coma, without long-term current use of insulin (CMS/HCC) Faith Kern MD [address] [place] [address] Phone: tel: fax: Eliana Flores RD [address] [place] [address] fax: Referral ID Status Reason Start Date Expiration Date V isits Requested Visits Authorized [id number] Closed Specialty Services Required 01/16/2023 07/15/2023 1 1 Encounter Details Date Type Department Care Team (Late st Contact Info) Description 01/16/2023 Orders Only [facility] MED & PEDS [address] [place], [place] [phone] Faith Kern MD [address] [place] [address] Diabetes mellitus due to underlying condition with [...] Description 08/16/2025 3:00 PM EDT Medication Management [facility] MED & PEDS [address] [place] [address] Kimberley Guadalupe PharmD [address] [place] [address] Scheduled Referrals Name Type Priority Associated Diagnoses [...] 147/75(2024 11:07 AM EDT) No Wesley Altman, PharmStephanie Hemoglobin A1c < 7 Result Component 8.5( 11:10 AM EDT) No Wesley Altman, PharmStephanie documented as of this encounter Visit Diagnoses Diagnosis Diabetes mellitus due to underlying condition with hyperosmolarity without coma, without long-term current use of insulin (CMS/HCC)- Primary documented in this encounter Care Teams Territory Account Representative Relationship Specialty Start Date End Date Faith Kern MD [address] [place], [place] [phone] PCP - General Family Medicine 01/15/20 Kimberley Guadalupe PharmD [address] [place], [place] [phone] Pharmacist Internal Medicine 01/11/25 documented as of this encounter
--- OUTSIDE RECORDS SUMMARY | 2025-07-07 08:36 | XMS_ITS | Encounter Summary ---
Author Organization [employer] Address [address] [facility] [address]t [place] [address] Care Team Providers Care Chamfering Machine Operator Name Role Phone Faith Kern MD Primary Care Provider [phone] Kimberley Guadalupe PharmD Unavailable [phone] Reason for Visit * Reason Comments Med Refill Encounter Details Date Type Department Care Team ([facility] st Contact Info) Description 07/05/2025 Refill [facility] MED & PEDS [address] [place] [address] Faith Kern MD [address] [place] [address] Social History Tobacco Use Types Packs/Day Years [...] Description 08/16/2025 3:00 PM EDT Medication Management [facility] MED & PEDS [address] [place] [address] Kimberley Guadalupe PharmD [address] [place] [address] documented as of this encounter Goals Goal Patient Goal Type Associated Problems Recent Progress Patient-Stated? Author Blood Pressure < 140/90 Blood Pressure 147/75(2024 11:07 AM EDT) No DellogWesley lizarraga, PharmD Hemoglobin A1c < 7 Result Component 8.5( 11:10 AM EDT) No Dellogono, Wesley, PharmD documented as of this encounter Visit Diagnoses Not on filedocumented in this encounter Additional Health Concerns Assessment Noted Time PHQ-9 Depression Total Score: 8 11/26/19 25 9:20 AM EST documented as of this encounter Care Teams Chamfering Machine Operator Relationship Specialty Start Date End Date Faith Kern MD [address] [place] [address] PCP - General Family Medicine 01/15/20 Kimberley Guadalupe, MelissaD [address] [place] [address] Pharmacist Internal Medicine 01/11/25 documented as of this encounter
--- OUTSIDE RECORDS SUMMARY | 2025-07-07 08:36 | XMS_ITS | Clinical Summary ---
Author Organization [address] [facility] Address [address] [place] [address] Phone Care Team Providers Care Setter Juice Packaging Machines Name Role Phone Faith Kern MD Primary Care Provider [phone] Allergies Active Allergy Reactions Criticality Noted Date Comments Lisinopril 06/09/2025 Medications ketoconazole (NIZORAL) 2 % cream Apply topically 1 (one) time each day. 60 g 2 Active Encounters Date Type Department Care Team Description 06/09/2025 3:30 PM EDT Office Visit Orthopedic Surgery [facility] [address] [facility] [address] [place] [phone] Armand Max, DPM Tinea pedis of both feet (Primary Dx); Dermatophytosis of nail; Pain in toe of right foot; Pain in toe of left foot; Diabetic mononeuropathy simplex (CMS/HCC V24, CMS/HCC V28) from Last 3 Months Surgical History Surgery Date Site/Laterality Comments SECTION PROCEDURE: OR DELIVERY ONLY COLONOSCOPY 01/26/13 PROCEDURE: OR COLONOSCOPY STOMA W/RMVL GABRIELLE POLYP/OTH LES SNARE; COMMENT: small polyp @35cm-> cold snare-> serrated hyperplastic ESOPHAGOGASTRODUODENOSCOPY 01/26/13 PROCEDURE: OR EGD TRANSORAL BIOPSY SINGLE/MULTIPLE; COMMENT: mosaic gastric mucosa- r/ h.pylori - hpylori positive BREAST BIOPSY PROCEDURE: BX BREAST; PERC NEEDLE CORE W/IMAG GUID; COMMENT: rt. breast bx. benign-10 yrs. ago BREAST SURGERY PROCEDURE: OR UNLISTED PROCEDURE BREAST; COMMENT: removed lump rt. [...] PM EDT Office Visit Orthopedic Surgery - [address] [address] Armand Max, DPM [address] [place] [phone] Health Maintenance Due Date Last Done Comments [...] Influencers of Health Screening 02/05/2024 COVID-19 Vaccine (4 - 2024-25 season) 2024 10/13/2021, 12/09/2020, 11/09/2020 Depression Screening 11/11/2024 Influenza Vaccine (#1) 2025 , 08/08/2023, 08/02/2022, Additional history exists Diabetes: Blood [...] Relevant to Health Maintenance Insurance Care Teams Setter Juice Packaging Machines Relationship Specialty Start Date End Date Faith Kern MD [address] [place] [id number] PCP - General 12/27/23
--- OUTSIDE RECORDS SUMMARY | 2025-07-07 08:36 | XMS_ITS | Clinical Summary ---
Author Organization [employer] Address [address] [facility] 7t [place] [address] Care Team Providers Care Career Development Counselor Name Role Phone Faith Kern MD Primary Care Provider Kimberley Guadalupe PharmD Unavailable [phone] Allergies Active Allergy Reactions Criticality Noted Date [...] complication, with long-term current use of insulin ([facility]) Check sugars BID 1 each 023 Active Farxiga 5 MG TAKE ONE TABLET EVERY MORNING BEFORE BREAKFAST 90 tablet 3 024 Active fluticasone (Flonase) 50 MCG/ACT nasal spray Administer 1 spray into each nostril Once per day. 16 g 3 024 Active brimonidine (AlphaGAN) 0.2 % ophthalmic solution [...] TAKE ONE TABLET EVERY MORNING 30 tablet Active amLODIPine (Norvasc) 10 MG tablet TAKE ONE TABLET EVERY MORNING 30 tablet Active Trulicity 0.75 MG/0.5ML solution auto-injector INJECT ONE PEN (=0.75MG) SUBCUTANEOUSLY ONCE A WEEK DIRECTED 2 mL Active insulin pen needle (Pentips) 32G x 4 mm misc USE ONE EVERY DAY. 100 each 3 Active FREESTYLE LITE test stripIndicatio ns:Type 2 diabetes mellitus without complication, with long-term current use of insulin ([facility]) TEST BLOOD SUGAR THREE TIMES DAILY 100 strip Active cetirizine (ZyrTEC) 10 MG tablet TAKE ONE TABLET EVERY MORNING 90 tablet Active hydrOXYzine HCl (Atarax) 25 MG tabletIndicati ons:Hypertensi on, unspecified type TAKE 1 OR 2 TABLETS BY MOUTH EVERY DAY NEEDED FOR ANXIETY. 60 tablet 3 025 Active acetaminophen (Tylenol 8 Hour) 650 MG ER tablet TAKE ONE TABLET BY MOUTH EVERY EIGHT HOURS NEEDED 60 tablet 5 025 Active Lantus SoloStar 100 UNIT/ML penIndications :Type 2 Diabetes Mellitus INJECT 30 UNITS SUBCUTANEOUSLY AT BEDTIME 15 mL 3 025 Active acetaminophen (Tylenol 8 Hour) 650 MG ER tablet TAKE ONE TABLET EVERY 8 HOURS NEEDED 60 tablet 5 024 2024 Discontinued Lantus SoloStar 100 UNIT/ML penIndications :Type 2 Diabetes Mellitus INJECT 30 UNITS SUBCUTANEOUSLY AT BEDTIME 3 mL 3 025 2024 Discontinued ciprofloxacin- dexAMETHasone (CiproDEX) otic suspension Administer 4 [...] Encounters Date Type Department Care Team Description 07/05/2025 Refill [facility] CHC MED & PEDS [address] [place] [address] Faith Kern MD 06/29/2025 Refill [facility] DIABETES/NUTRITION [address] [place] [address] Faith Kern MD 06/14/2025 Orders Only [facility] MED & PEDS [address] [place] [address] Faith Kern MD Adhesive capsulitis of right shoulder (Primary Dx) 06/03/2025 Orders Only [facility] MED & PEDS [address] [place] [address] Faith Kern MD 05/31/2025 11:00 AM EDT Office Visit [facility] MED & PEDS [address] [place] [address] Faith Kern MD Primary hypertension (Primary Dx); Type 2 diabetes mellitus without complication, with long-term current use of insulin ([facility]); Hyperlipidemia, unspecified hyperlipidemia type; Right upper quadrant abdominal pain; Hypertension, unspecified type 05/31/2025 Travel 05/24/2025 Patient Outreach [facility] MEDICINE [address] [place] [address] Faith Kern MD Pre-visit Planning (Pre visit planning LVM ) 05/19/2025 Orders Only [facility] [address] [place] [address] ProviderYa MD 04/27/2025 Patient Outreach [facility] MEDICINE [address] [place] [address] Faith Kern MD Pre-visit Planning (SDOH screening negative and Tobacco screening negative) 04/06/2025 Results Follow-Up [facility] MED & PEDS [address] [place] [address] Faith Kern MD BI Mammogram Screening Tomosynthesis Bilateral from Last 3 Months Immunizations Immunization Administration [...] Description 08/16/2025 3:00 PM EDT Medication Management [facility] MED & PEDS [address] [place] [address] Kimberley Guadalupe, PharmD [address] [place] [address] Health Maintenance Due Date Last Done Comments CT Colonography 1965 Colonoscopy 1965 FIT 1965 FOBT 1965 HIV Screening 1965 Sigmoidoscopy 1965 Alcohol/Substance Use Screening 1977 Hepatitis C Screening 1983 Hepatitis A Vaccines (1 of 2 - Risk 2-dose series) 1984 Diabetes: Foot Exam 06/21/2024 06/21/2023, COVID-19 Vaccine ( season) 2024 10/13/2021, 12/09/2020, 11/09/2020 Pap Smear 03/06/2025 03/06/2022 Influenza Vaccine (#1) 2025 , 08/08/2023, 08/02/2022, Additional history exists Diabetes: Hemoglobin [...] complication, with long-term current use of insulin ([facility]) POCT GLUCOSE Routine 05/31/2025 11:10 AM EDT Type 2 diabetes mellitus without complication, with long-term current use of insulin ([facility]) HM DIABETES EYE EXAM Routine 05/18/2025 1:45 PM EDT BI US BREAST LIMITED LEFT Routine 04/12/2025 11:53 AM EDT BI MAMMOGRAM DIAGNOSTIC TOMOSYNTHESIS ADDED VIEW LEFT Routine 04/12/2025 11:20 AM EDT LIPID PANEL, STANDARD Routine 11/26/2024 [...] Date Blood 05/31/2025 11:1 0 AM EDT us Faith Kern MD POINT OF CARE TEST ENTER/EDIT OR DERABLES Final Result * POCT Glucose (05/31/2025 11:10 AM EDT) Glucose Blood, POC 121 60 - 200 mg/dL QC Media Lot # [id number] Lot# Expiration Date , Blood Capillary blood specimen / Unknown 05/31/2025 11:10 AM EDT Faith Kern MD POINT OF CARE TEST ENTER/EDIT OR DERABLES Final Result * Diabetes Eye Exam (05/18/2025 1:45 PM EDT) [facility] Provider HEALTH MAINTENANCE Final Result * BI US Breast Limited Left (04/12/2025 11:53 AM EDT) Anatomical Region Laterality Modality Breast Left Ultrasound 04/12/2025 11:5 3 AM EDT Narrative 04/12/2025 12:49 PM EDT [facility] [address] [place] [address] Ultrasound Report Signed Patient: Susannah Herman MR#: [id number] 1 : 1965 Acct:[id number] Age/Sex: 59 / F ADM Date: 04/12/25 Loc: HO.MAMMO Attending Dr: Faith Kern MD Ordering Physician: Faith Kern MD Date of Service: 04/12/25 Procedure(s): US breast LT limited mamm only Accession Number(s): [id number] cc: Faith Kern MD EXAMINATION: MM DIAGNOSTIC [...] Sabine Luna DO 04/12/2025 12:46 PM EDT RP Dictated By: Sabine Luna DO Signed By: <Electronically signed by Sabine Luna DO in OV> 04/12/25 1246 DD/ 1153 TD/TT: 04/12/25 1202 Effervescent Salts Compounder: Procedure Note Donotuseinterpreter, Image - 04/12/2025 [facility] [address] [place] [address] Ultrasound Report Signed Patient: Kate HermanWYR#: [id number] 1 : 1965Acct:[id number] Age/Sex: 59 / FADM Date: 04/12/25 Loc: HO.MAMMO Attending Dr: Faith Kern MD Ordering Physician: Faith Kern MD Date of Service: 04/12/25 Procedure(s): US breast LT limited mamm only Accession Number(s): [id number] cc: Faith Kern MD EXAMINATION: MM DIAGNOSTIC [...] 04/12/25 1246 DD/ 1153 TD/TT: 04/12/25 1202 Effervescent Salts Compounder: Faith Kern MD IM US PROCEDURES Edited Result - Final * BI Mammogram Diagnostic Tomosynthesis added left (04/12/2025 11:20 AM EDT) Anatomical Region Laterality Modality Breast Left Mammography 04/12/2025 11:2 0 AM EDT Narrative 04/12/2025 12:49 PM EDT [facility] [address] [place], [place] [address] Mammography Report Signed Patient: Susannah Herman MR#: [id number] 1 : 1965 Acct:[id number] Age/Sex: 59 / F ADM Date: 04/12/25 Loc: HO.MAMMO Attending Dr: Faith Kern MD Ordering Physician: Faith Kern MD Results: 1Negati ve Date of Service: 04/12/25 Follow Up: 1 Year From Orig ina Mammogram Procedure(s): MM tomosynthesis added views L Accession Number(s): [id number] cc: Faith Kern MD EXAMINATION: MM DIAGNOSTIC [...] 04/12/25 1246 DD/ 1120 TD/TT: 04/12/25 1142 Effervescent Salts Compounder: Procedure Note Donotuseinterpreter, Image - 04/12/2025 [facility] [address] [place] [address] Mammography Report Signed Patient: Kate HermannMR#: [id number] 1 : 1965Acct:[id number] Age/Sex: 59 / FADM Date: 04/12/25 Loc: HO.MAMMO Attending Dr: Faith Kern MD Ordering Physician: Faith Kern MDResults: 1Negati ve Date of Service: 04/12/25Follow Up: 1 Year From Orig inal Mammogram Procedure(s): MM tomosynthesis added views L Accession Number(s): [id number] cc: Faith Kern MD EXAMINATION: MM DIAGNOSTIC [...] 04/12/25 1246 DD/ 1120 TD/TT: 04/12/25 1142 Effervescent Salts Compounder: us Faith Kern MD IMG BI PROCEDURES Edited Result - Final * (ABNORMAL) Lipid Panel, Standard (11/26/2024 9:47 AM EST) Triglycerides 208(H) <150 mg/dL [facility] Comment:Desirable Triglyceri de: less than 150 mg/dLBorderline High Triglyceride 150-199 mg/dLHigh Triglyceride: 200-499 mg/dLVery High Triglyceride: greater than or equal to 5OO mg/dL Cholesterol 168 <200 mg/dL [facility] Comment:Desirable Cholestero l: less than 200 mg/dLBorderline High Cholesterol: 200-239 mg/dLHigh Cholesterol: greater than 239 mg/dL LDL Cholesterol Calculated 83 <100 mg/dL [facility] Comment:Desirable LDL: less than 100 mg/dLNear Optimal/Above Optimal LDL: 110- 129 mg/dLBorderline High LDL: 130-159 mg/dLHigh LDL: 160-189 mg/dLVery High LDL: greater than or equal to 190 mg/dL HDL Cholesterol 44 >40 mg/dL [facility] Comment:Desirable HDL: great er than 40 mg/dL Note: This HDL assay may give artificially low results in patients with liver disease. Blood Venous blood specimen / Unknown 11/26/2024 9:47 AM EST 11/26/2024 2:00 PM EST us Faith Kern MD LAB BLOOD ORDERABLES Final Resul t Performing Organization Address City/[facility]/ZIP Co de Phone Number [facility] [address] [place] [phone] * Creatinine, Random Urine (11/26/2024 9:29 AM EST) Creatinine, Urine 49.33 mg/dL [facility] 11/26/2024 9:29 AM EST 11/26/2024 1:58 PM EST us Generic External Data Provider LAB URINE ORDERAB LES Final Result Performing Organization Address City/State/[facility] Co de Phone Number [facility] [address] [place] [phone] * Cologuard?? colon cancer screening (01/19/2024 4:30 PM EDT) Cologuard Result Negative Negative 01/26/20 8:56 AM EDT [facility] (CLIA #:[id number]) Comment: NEGATIVE TEST RESULT. A negative Cologuard [...] (Joel Jacobo al, N Engl J Med 2014;370(14):8768-0358) The normal value (reference range) for this assay is negative. COLOGUARD RE-SCREENING RECOMMENDATION: Periodic colorectal cancer screening is an important part of preventive healthcare for asymptomatic individuals at average risk for colorectal cancer. Following a negative Cologuard result, the [place] Cancer Society and U.S. Multi-Society Task Force screening guidelines recommend a Cologuard re-screening interval of 3 years. References: [place] [employer] Guideline for Colorectal Cancer Screening: https://www.cancer.org/cancer/uszna-icyfuw-haubox/lyjacoozr-vkkgkatin-vjfipms/ac s-rec ommendations.html.; Misael DK, Bola CR, Peace EvansK, Colorectal Cancer Screening: Recommendations for Physicians and Patients from the U.S. Multi-Society Task Force on Colorectal Cancer Screening , Am J Gastroenterology 2017; 112:2409-7836. TEST DESCRIPTION: Composite algorithmic analysis of stool [...] (Joel Jacobo al, N Engl J Med 2014;370(14):5418-8365.) Cologuard may produce a false negative or false positive result (no colorectal cancer or precancerous polyp present at colonoscopy follow up). A negative Cologuard test result does not guarantee the absence of CRC or advanced adenoma (pre-cancer). The current Cologuard screening interval is every 3 years. ([place] Cancer Society and U.S. Multi-Society Task Force). Cologuard performance data in a 10,000 patient pivotal study using colonoscopy as the reference method can be accessed at the following location: www.[employer]/results. Additional description of the Cologuard test process, warnings and precautions can be found at [email or web address] [email or web address].[email or web address]. Stool specimen (specimen) 01/19/2024 4:30 PM EDT 01/22/2024 2:01 PM EDT us Faith Kern MD LAB MOLECULAR DIAGNOSTICS YO WOO Final Result [facility] (CLIA #:[id number]) [place] [address], * THINPREP TIS PAP AND HPV mRNA E6/E7 WITH REFLEX TO HPV 16,18/45 (03/06/2022 9:04 AM EDT) Clinical Information: [facility] COMMENT SEE COMMENT [facility] ON [...] has been evaluated with computer assisted technology. [facility] Jig And Fixture Repairer: SEE COMMENT [facility] Comment: ED, CT(ASCP) CT screening location: [place] [address] HPV nRNA E6/E7 Not Detected Not Detected [facility] Comment: Methodology: Industrial Tractor Driver-Mediated Amplification This assay detects E6/E7 viral messenger RNA (mRNA) from 14 high-risk HPV types (16,18,31,33,35,39,45,51,52,56,58,59,66,68). The analytical performance characteristics of this assay have been determined by [employer]. The modifications have not been cleared or approved by the FDA. This assay has been validated pursuant to the CLIA regulations and is used for clinical purposes. For additional information, please refer to http://education.[employer]/faq/OTV671g6 (This link if provided for information/ educational purposes only.) Interpretation/Re sult: Negative for intraepithelial lesion or malignancy. [facility] LMP: [facility] Prev. BX: NONE GIVEN [facility] Prev. PAP: NONE GIVEN [facility] SOURCE: None given [facility] Statement Of Adequacy: SEE COMMENT [facility] Comment: Satisfactory for evaluation. Endocervical/transformation zone component present. 03/06/2022 9:04 AM EDT us Salima Smith CNM LAB PATHOLOGY ORDERABLES Final Result [facility] [address] [place] [address], from Last 3 Months or Most Recently Relevant to Health Maintenance Insurance , [address] [place] [address] Care Teams Career Development Counselor Relationship Specialty Start Date End Date Faith Kern MD [address] [place] [address] PCP - General Family Medicine 01/15/20 Kimberley Guadalupe PharmD [address] [place] [address] Pharmacist Internal Medicine 01/11/25
--- OUTSIDE RECORDS SUMMARY | 2025-07-07 08:36 | XMS_ITS | Clinical Summary ---
Author Organization [facility] Address [address] [place] [address] Phone Care Team Providers Care Certified Indoor Environmentalist Name Role Phone Faith Kern MD Primary Care Provider [phone] Allergies Active Allergy Reactions Criticality Noted Date [...] Diabetes: Hemoglobin A1C 02/24/2025 025, 04/24/2023, 12/26/2022 Influenza Vaccine (#1) 2025 4, 08/08/2023, 08/02/2022, Additional history exists Pneumococcal Vaccine: 50+ Years Completed 08/02/2022, 12/03/2017, 03/18/2009 Pneumococcal Vaccine: Peds ( 0 to 5 Years) and At-Risk Patients (6 to 49 Years) Discontinued 08/02/2022, 12/03/2017, 03/18/2009 Insurance Care Teams Certified Indoor Environmentalist Relationship Specialty Start Date End Date Faith Kern MD [address] [place] [address] PCP - General Family Medicine 07/24/21
--- OUTSIDE RECORDS SUMMARY | 2025-07-07 08:36 | XMS_ITS | Encounter Summary ---
Author Organization [facility] Address [address] [place] [address] Phone Care Team Providers Care Loftsman Name Role Phone Faith Kern MD Primary Care Provider [phone] Encounter Details Date Type Department Care Team (Late st Contact Info) Description 10/24/2021 Documentation Only [facility] [address] [place] [address] Emir Cisse MD Social History [...] on filedocumented in this encounter Care Teams Loftsman Relationship Specialty Start Date End Date Faith Kern MD [address] [place] [address] PCP - General Family Medicine 07/24/21 documented as of this encounter
--- OUTSIDE RECORDS SUMMARY | 2025-07-07 08:36 | XMS_ITS | Encounter Summary ---
Author Organization [facility] Address [address] [facility] [address] [place] [address] Phone Care Team Providers Care Skirt Panel Assembler Name Role Phone Faith Kern MD Primary Care Provider Reason for Visit * Reason Comments Med Refill Encounter Details Date Type Department Care Team (Late st Contact Info) Description 11/28/2024 Refill [facility] [address] [address] [place] [address] Nik Mckeon MD [address] [facility] [address] [place] [address] Social History Tobacco Use Types [...] on filedocumented in this encounter Care Teams Skirt Panel Assembler Relationship Specialty Start Date End Date Faith Kern MD [address] [place] [address] PCP - General Family Medicine 07/24/21 documented as of this encounter
--- OUTSIDE RECORDS SUMMARY | 2025-07-07 08:36 | XMS_ITS | Encounter Summary ---
Author Organization [facility] Address [address] [facility] [address] [place] [address] Phone Care Team Providers Care Shirrer Name Role Phone Faith Kern MD Primary Care Provider [phone] Reason for Visit * Reason Comments Med Refill Encounter Details Date Type Department Care Team (Late st Contact Info) Description 05/02/2024 Refill [facility] [address] [place] [address] Nik Mckeon MD [address] [facility] [address] [place] [address] Social History Tobacco Use Types [...] on filedocumented in this encounter Care Teams Shirrer Relationship Specialty Start Date End Date Faith Kern MD [address] [place] [address] PCP - General Family Medicine 07/24/21 documented as of this encounter
--- OUTSIDE RECORDS SUMMARY | 2025-07-07 08:37 | XMS_ITS | Encounter Summary ---
Author Organization [employer] Address [address] [facility] 7t [place] [address] Care Team Providers Care Interface Engineer Name Role Phone Faith Kern MD Primary Care Provider [phone] Kimberley Guadalupe PharmD Unavailable Reason for Visit * Reason Comments Med Refill Encounter Details Date Type Department Care Team ([facility] Contact Info) Description 11/25/2022 Refill [facility] MEDICINE [address] [place] [address] Faith Kern MD [address] [place], [place] [phone] Social History Tobacco Use Types Packs/Day Years [...] Upcoming Encounters Date Type Department Care Team ([facility] Contact Info) Description 08/16/2025 3:00 PM EDT Medication Management [facility] CHC MED & PEDS [address] [place] [address] Kimberley Guadalupe PharmD [address] [place] [address] documented as of this encounter Goals Goal Patient Goal Type Associated Problems Recent Progress Patient-Stated? Author Blood Pressure < 140/90 Blood Pressure 147/75(2024 11:07 AM EDT) No Wesley Altman PharmD Hemoglobin A1c < 7 Result Component 8.5( 11:10 AM EDT) No Wesley Altman PharmD documented as of this encounter Visit Diagnoses Not on filedocumented in this encounter Care Teams Interface Engineer Relationship Specialty Start Date End Date Faith Kern MD [address] [place] [address] PCP - General Family Medicine 01/15/20 Kimberley Guadalupe, Rakesh [address] [place] [address] Pharmacist Internal Medicine 01/11/25 documented as of this encounter
== END 2025-07-07 08:15 | disposition home or self-care (01) ==
LOC: HO.HMGCX 08:14
PROVIDERS: PCP Student in an Organized Health Care Education/Training Program; Visit Provider Student in an Organized Health Care Education/Training Program
DX: R10.11 Right upper quadrant pain (principal)
CPT/HCPCS: 76705

== ENCOUNTER → 2025-07-07 08:18 | Outpatient (BNV) | payer OTHER, SELFPAY | PROVIDERS: PCP Student in an Organized Health Care Education/Training Program; Visit Provider Radiology Diagnostic Radiology | DX: R10.11 Right upper quadrant pain (principal); K76.89 Other specified diseases of liver | CPT/HCPCS: 76705 ==

== ENCOUNTER 2025-11-09 11:50 | Outpatient (REF) | payer OTHER, SELFPAY ==
[2025-11-09 15:41] LABS: Anion Gap 14 (12-20); Blood Urea Nitrogen 28 mg/dL (9-16); Calcium 10.6 mg/dL (8.4-10.2); Carbon Dioxide 30 mmol/L (22-29); Chloride 105 mmol/L (96-108); Estimated Glomerular Filt Rate 33; Potassium 4.5 mmol/L (3.3-5.1); Sodium 144 mmol/L (135-145)
--- OUTSIDE RECORDS SUMMARY | 2025-11-09 15:55 | XMS_ITS | Encounter Summary ---
Author Organization [employer] Address [address] [facility] 7t [place] [address] Care Team Providers Care Glass Installer Name Role Phone Faith Kern MD Primary Care Provider [phone] Kimberley Guadalupe PharmD Unavailable [phone] Chio Elizabeth CNP Primary Care Provider [phone] Reason for Visit * Reason Comments Med Refill Encounter Details Date Type Department Care Team (Late st Contact Info) Description 03/03/2024 Refill [facility] CHC MED & PEDS [address] [place], [place] [phone] Faith Kern MD [address] [place], [place] [phone] Social History Tobacco Use Types Packs/Day Years [...] Care Team (Late st Contact Info) Description 12/21/2025 10:45 AM EST Office Visit [facility] CHC MED & PEDS [address] [place] [address] Chio Elizabeth CNP [address] [place] [address] documented as of this encounter Goals Goal Patient Goal Type Associated Problems Recent Progress Patient-Stated? Author Blood Pressure < 140/90 Blood Pressure 147/75(2024 11:07 AM EDT) No Dellogono, Wesley, PharmD Hemoglobin A1c < 7 Result Component 8.5( 11:10 AM EDT) No DellogPernell lizarragais, PharmD documented as of this encounter Visit Diagnoses Not on filedocumented in this encounter Additional Health Concerns Assessment Noted Time PHQ-9 Depression Total Score: 8 01/22/20 23 9:32 AM EDT documented as of this encounter Care Teams Glass Installer Relationship Specialty Start Date End Date Faith Kern MD [address] [place] [address] PCP - General Family Medicine 01/15/20 09/08/25 Chio Elizabeth CNP [address] [place] [address] PCP - General Family Medicine 09/09/25 Kimberley Guadalupe, Rakesh [address] [place] [address] Pharmacist Internal Medicine 01/11/25 documented as of this encounter
--- OUTSIDE RECORDS SUMMARY | 2025-11-09 15:55 | XMS_ITS | Encounter Summary ---
Author Organization [employer] Address [address] [facility] 7t [place] [address] Care Team Providers Care Cd Storage And Materials Make Up Helper Name Role Phone Faith Kern MD Primary Care Provider [phone] Kimberley Guadalupe PharmD Unavailable [phone] Chio Elizabeth CNP Primary Care Provider [phone] Encounter Details Date Type Department Care Team (Late st Contact Info) Description 05/19/2025 Orders Only [facility] [address] [place] [address] Provider, MD Ya Social History Tobacco Use [...] Description 12/21/2025 10:45 AM EST Office Visit [facility] MED & PEDS [address] [place] [address] Chio Elizabeth CNP [address] [place] [address] documented as of this encounter Goals Goal Patient Goal Type Associated Problems Recent Progress Patient-Stated? Author Blood Pressure < 140/90 Blood Pressure 147/75(2024 11:07 AM EDT) No DellogPernell lizarragais, PharmD Hemoglobin A1c < 7 Result Component 8.5( 11:10 AM EDT) No Dellogzia Wesley, PharmD documented as of this encounter Procedures Procedure Name Priority Date/Time Associated Diagnosis Comments DIABETES EYE EXAM Routine 05/18/2025 1:45 PM EDT documented in this encounter Results * Diabetes Eye Exam (05/18/2025 1:45 PM EDT) Historical Provider HEALTH MAINTENANCE Final Result documented in this encounter Visit Diagnoses Not on filedocumented in this encounter Additional Health Concerns Assessment Noted Time PHQ-9 Depression Total Score: 8 11/26/19 25 9:20 AM EST documented as of this encounter Care Teams Cd Storage And Materials Make Up Helper Relationship Specialty Start Date End Date Faith Kern MD [address] [place] [address] PCP - General Family Medicine 01/15/20 09/08/25 Chio Elizabeth CNP [address] [place] [address] PCP - General Family Medicine 09/09/25 Kimberley Guadalupe PharmD [address] [place] [address] Pharmacist Internal Medicine 01/11/25 documented as of this encounter
--- OUTSIDE RECORDS SUMMARY | 2025-11-09 15:55 | XMS_ITS | Encounter Summary ---
Author Organization [facility] Address [address] [place] [address] Phone Care Team Providers Care Recordist Name Role Phone Faith Kern MD Primary Care Provider [phone] Encounter Details Date Type Department Care Team (Late st Contact Info) Description 10/24/2021 Documentation Only [facility] [address] [place] [address] Emir Cisse MD [address] [place] [address] Social History Tobacco Use Types Packs/Day Years [...] on filedocumented in this encounter Care Teams Recordist Relationship Specialty Start Date End Date Faith Kern MD [address] [place] [address] PCP - General Family Medicine 07/24/21 documented as of this encounter
--- OUTSIDE RECORDS SUMMARY | 2025-11-09 15:55 | XMS_ITS | Encounter Summary ---
Author Organization [employer] Address 75 [facility] 7 [place] [address] Care Team Providers Care Library Paraprofessional Name Role Phone Faith Kern MD Primary Care Provider [phone] Kimberley Guadalupe PharmD Unavailable [phone] Chio Elizabeth CNP Primary Care Provider [phone] Reason for Referral * Social Care Application (Routine) - Closed Specialty Diagnoses / Procedures Referred By Contac t Referred To Contact Diagnoses Diabetes mellitus due to underlying condition with hyperosmolarity without coma, without long-term current use of insulin (HCC) Faith Kern MD [address] [place] [address] Phone: tel: fax: Eliana Flores, RD [address] [place] [address] fax: Referral ID Status Reason Start Date Expiration Date V isits Requested Visits Authorized [id number] Closed Specialty Services Required 01/16/2023 07/15/2023 1 1 Encounter Details Date Type Department Care Team (Late st Contact Info) Description 01/16/2023 Orders Only [facility] MED & PEDS [address] [place], [place] [phone] Faith Kern MD [address] [place], [place] [phone] Diabetes mellitus due to underlying condition with [...] Description 12/21/2025 10:45 AM EST Office Visit [facility] MED & PEDS [address] [place], [place] [phone] Chio Elizabeth CNP [address] [place], [place] [phone] Scheduled Referrals Name Type Priority Associated Diagnoses [...] coma, without long-term current use of insulin ([facility])- Primary documented in this encounter Care Teams Library Paraprofessional Relationship Specialty Start Date End Date Faith Kern MD [address] [place] [address] PCP - General Family Medicine 01/15/20 09/08/25 Chio Elizabeth CNP [address] [place] [address] PCP - General Family Medicine 09/09/25 Kimberley Guadalupe, Rakesh [address] [place] [address] [place] [address] Pharmacist Internal Medicine 01/11/25 documented as of this encounter
--- OUTSIDE RECORDS SUMMARY | 2025-11-09 15:55 | XMS_ITS | Clinical Summary ---
Author Organization [employer] Address [address] [facility] 7t [place] [address] Care Team Providers Care Steamer Gum Candy Name Role Phone Kimberley Guadalupe PharmD Unavailable [phone] Chio Elizabeth CNP Primary Care Provider [phone] Allergies Active Allergy Reactions Criticality Noted Date Comments Lisinopril Itching Low 11/15/2022 hives Shellfish Protein-Containing Drug Products Hives Low 11/15/2022 Medications valsartan (Diovan) 80 MG tablet TAKE ONE TABLET DAILY 03/27/20 22 Active cloNIDine (Catapres) 0.1 MG tablet TAKE ONE TABLET BY MOUTH TWICE DAILY TWICE DAILY IN THE MORNING AND AT BEDTIME 10/02/20 22 Active dorzolamide (Trusopt) 2 % ophthalmic solution PLACE ONE DROP IN EACH EYE TWICE DAILY 04/19/20 22 Active latanoprost (Xalatan) 0.005 % ophthalmic solution PLACE ONE DROP IN EACH EYE AT BEDTIME 04/19/20 22 Active Blood Glucose Monitoring Suppl (FreeStyle glucose monitoring) kitIndications: Type 2 diabetes mellitus without complication, with long-term current use of insulin (HCC) Check sugars BID 1 each 01/24/20 23 Active fluticasone (Flonase) 50 MCG/ACT nasal spray Administer 1 spray into each nostril Once per day. 16 g 3 10/14/20 24 Active brimonidine (AlphaGAN) 0.2 % ophthalmic solution PLACE ONE DROP IN THE RIGHT EYE TWICE DAILY 08/06/20 24 Active chlorthalidone (Hygroton) 25 MG tablet Take 0.5 tablets (12.5 mg) by mouth in the morning. 01/12/20 25 Active atorvastatin (Lipitor) 80 MG tablet Take 1 tablet (80 mg) by mouth Once per day. 30 tablet 11 11/08/2025 3:36 PM EST 01/27/20 25 Active Lancets 33G misc Test blood sugar up to 3 times daily 100 each 11 02/23/20 25 Active Trulicity 0.75 MG/0.5ML solution auto-injector INJECT ONE PEN (=0.75MG) SUBCUTANEOUSLY ONCE A WEEK DIRECTED 2 mL 2 03/09/20 25 Active insulin pen needle (Pentips) 32G x 4 mm misc USE ONE EVERY DAY. 100 each 3 03/12/20 25 Active FREESTYLE LITE test stripIndication s:Type 2 diabetes mellitus without complication, with long-term current use of insulin (HCC) TEST BLOOD SUGAR THREE TIMES DAILY 100 strip 1 03/18/20 25 Active hydrOXYzine HCl (Atarax) 25 MG tabletIndicatio ns:Hypertension , unspecified type TAKE 1 OR 2 TABLETS BY MOUTH EVERY DAY NEEDED FOR ANXIETY. 60 tablet 3 05/31/20 25 Active acetaminophen (Tylenol 8 Hour) 650 MG ER tablet TAKE ONE TABLET BY MOUTH EVERY EIGHT HOURS NEEDED 60 tablet 5 06/29/20 25 Active Lantus SoloStar 100 UNIT/ML penIndications: Type 2 Diabetes Mellitus INJECT 30 UNITS SUBCUTANEOUSLY AT BEDTIME 15 mL 3 10/28/2025 4:11 PM EST 07/06/20 25 Active amLODIPine (Norvasc) 10 MG tablet TAKE ONE TABLET EVERY MORNING 30 tablet 5 08/24/20 25 Active Aspirin Adult Low Strength 81 MG EC tablet TAKE ONE TABLET BY MOUTH EVERY MORNING 30 tablet 11 08/27/20 25 Active cetirizine (ZyrTEC) 10 MG tablet TAKE ONE TABLET EVERY MORNING 90 tablet 1 10/11/2025 4:09 PM EST 09/22/20 25 Active Farxiga 5 MG TAKE ONE TABLET EVERY MORNING BEFORE BREAKFAST 90 tablet 3 10/06/2025 3:52 PM EST 09/29/20 25 Active Active Problems Problem Noted Date Diagnosed [...] Mirena placed in 2014 Mirena placed in 2015 Encounters Date Type Department Care Team Description 09/28/2025 Refill [facility] DIABETES/NUTRITION [address] [place] [address] Faith Kern MD 09/22/2025 Refill [facility] CHC MED & PEDS [address] [place] [address] Faith Kern MD 08/27/2025 Refill [facility] MED & PEDS [address] [place] [address] Faith Kern MD 08/25/2025 2:20 PM EDT Immunization [facility] MED & PEDS [address] [place] [address] Liz Arciniega RN Encounter for immunization 08/25/2025 Travel 08/23/2025 Refill [facility] CHC MED & PEDS [address] [place] [address] Faith Kern MD from Last 3 Months Immunizations Immunization Administration Dates Next Due HepB-CpG 11/22/2022,09/24/2022 Influenza Injectable Quadriv alant Preservative Free IIV4 MDCK 08/08/2023,08/02/2022,08/10/2020 Influenza injectable quadriv alent IIV4 with preservative 07/22/2019,07/23/2018 Influenza injectable quadriv alent preservative free 07/31/2021 Influenza, IIV3, injectable 07/22/2018, 9 Influenza, seasonal, injecta ble, preservative free 08/25/2025,07/31/2024 Moderna Covid-19 Vaccine 12+ 10/13/2021,12/09/19 21,11/09/2020 Pneumococcal [...] Upcoming Encounters Date Type Department Care Team ([facility] st Contact Info) Description 12/21/2025 10:45 AM EST Office Visit [facility] MED & PEDS [address] [place] [address] Chio Elizabeth CNP [address] [place] [address] Health Maintenance Due Date Last Done Comments CT Colonography 1965 Colonoscopy 1965 FIT 1965 HIV Screening 1965 Sigmoidoscopy 1965 Alcohol/Substance Use Screening 1977 Hepatitis C Screening 1983 Hepatitis A Vaccines (1 of 2 - Risk 2-dose series) 1984 RSV Patients and Patients Aged 60 years or older (1 - Risk 50-74 years 1-dose series) 2015 Diabetes: Foot Exam 06/21/2024 06/21/2023, FOBT 01/18/2025 01/19/2024 Pap Smear 03/06/2025 03/06/2022 COVID-19 Vaccine ( season) 2025 10/13/2021, 12/09/2020, 11/09/2020 Diabetes: Hemoglobin A1C 08/31/2025 025, 02/22/2025, 11/26/2024, [...] - Td or Tdap) 04/21/2031 04/21/2021, 03/11/2009 Zoster Vaccines Completed 02/16/2022, 12/13/2021 Pneumococcal Vaccine: 50+ Years Completed 08/02/2022, 12/03/2017, 03/18/2009 Hepatitis B Vaccines Completed 11/22/2022, 09/24/20 Influenza Vaccine Completed 08/25/2025, , 08/08/2023, Additional history exists HIB Vaccines Aged Out [...] 147/75(2024 11:07 AM EDT) No Wesley Altman, Rakesh Hemoglobin A1c < 7 Result Component 8.5( 11:10 AM EDT) No Wesley Altman PharmD Procedures Procedure Name Priority Date/Time Associated Diagnosis Comments POCT GLYCATED HEMOGLOBIN, TOTAL Routine 05/31/2025 11:10 AM EDT Type 2 diabetes mellitus without complication, with long-term current use of insulin ([facility]) HM DIABETES EYE EXAM Routine 05/18/2025 1:45 PM EDT BI US BREAST LIMITED LEFT Routine 04/12/2025 11:53 AM EDT LIPID PANEL, STANDARD Routine 11/26/2024 [...] Diabetes Eye Exam (05/18/2025 1:45 PM EDT) [facility] Provider HEALTH MAINTENANCE Final Result * BI US Breast Limited Left (04/12/2025 11:53 AM EDT) Anatomical Region Laterality Modality Breast Left Ultrasound 04/12/2025 11:5 3 AM EDT Narrative 04/12/2025 12:49 PM EDT [facility]'s [address] [place] [address] Ultrasound Report Signed Patient: Susannah Herman MR#: [id number] 1 : 1965 Acct:[id number] Age/Sex: 59 / F ADM Date: 04/12/25 Loc: HO.MAMMO Attending Dr: Faith Kern MD Ordering Physician: Faith Kern MD Date of Service: 04/12/25 Procedure(s): US breast LT limited mamm only Accession Number(s): [id number] cc: Faith Kern MD EXAMINATION: MM DIAGNOSTIC [...] 04/12/25 1246 DD/ 1153 TD/TT: 04/12/25 1202 Global Project Manager: Procedure Note Donotuseinterpreter, Image - 04/12/2025 Karen [facility] [address] [place] [address] Ultrasound Report Signed Patient: Kate HermannMR#: [id number] 1 : 1965Acct:[id number] Age/Sex: 59 / FADM Date: 04/12/25 Loc: HO.MAMMO Attending Dr: Faith Kern MD Ordering Physician: Faith Kern MD Date of Service: 04/12/25 Procedure(s): US breast LT limited mamm only Accession Number(s): [id number] cc: Faith Kern MD EXAMINATION: MM DIAGNOSTIC [...] 04/12/25 1246 DD/ 1153 TD/TT: 04/12/25 1202 Global Project Manager: Faith Kern MD [facility] US PROCEDURES Edited Result - Final * (ABNORMAL) Lipid Panel, Standard (11/26/2024 9:47 AM EST) Triglycerides 208(H) <150 mg/dL [facility] Comment:Desirable Triglyceri de: less than 150 mg/dLBorderline High Triglyceride 150-199 mg/dLHigh Triglyceride: 200-499 mg/dLVery High Triglyceride: greater than or equal to 5OO mg/dL Cholesterol 168 <200 mg/dL [facility] Comment:Desirable Cholestero l: less than 200 mg/dLBorderline High Cholesterol: 200-239 mg/dLHigh Cholesterol: greater than 239 mg/dL LDL Cholesterol Calculated 83 <100 mg/dL [facility] Comment:Desirable LDL: less than 100 mg/dLNear Optimal/Above Optimal LDL: 110- 129 mg/dLBorderline High LDL: 130-159 mg/dLHigh LDL: 160-189 mg/dLVery High LDL: greater than or equal to 190 mg/dL HDL Cholesterol 44 >40 mg/dL [facility] Comment:Desirable HDL: great er than 40 mg/dL Note: This HDL assay may give artificially low results in patients with liver disease. Blood Venous blood specimen / Unknown 11/26/2024 9:47 AM EST 11/26/2024 2:00 PM EST us Faith Kern MD LAB BLOOD ORDERABLES Final Resul t Performing Organization Address City/[facility] Co de Phone Number [facility] [address] [place] [phone] * Creatinine, Random Urine (11/26/2024 9:29 AM EST) Creatinine, Urine 49.33 mg/dL [facility] 11/26/2024 9:29 AM EST 11/26/2024 1:58 PM EST us Generic External Data Provider LAB URINE ORDERAB LES Final Result Performing Organization Address [facility] Co de Phone Number [facility] [address] [place] [phone] * Cologuard?? colon cancer screening (01/19/2024 4:30 PM EDT) Cologuard Result Negative Negative 01/26/20 8:56 AM EDT [facility] (CLIA #:[id number]) Comment: NEGATIVE TEST RESULT. A negative Cologuard [...] (Joel Jacobo al, N Engl J Med 2014;370(14):9826-2386) The normal value (reference range) for this assay is negative. COLOGUARD RE-SCREENING RECOMMENDATION: Periodic colorectal cancer screening is an important part of preventive healthcare for asymptomatic individuals at average risk for colorectal cancer. Following a negative Cologuard result, the Australian Cancer Society and U.S. Multi-Society Task Force screening guidelines recommend a Cologuard re-screening interval of 3 years. References: [place] Cancer Society Guideline for Colorectal Cancer Screening: https://www.cancer.org/cancer/crffq-qnjqgz-iofzca/hllxvwwqj-xtqjvygsa-iqsjgif/ac s-rec ommendations.html.; Misael DK, Bola NOBLE, Peace EvansK, Colorectal Cancer Screening: Recommendations for Physicians and Patients from the U.S. Multi-Society Task Force on Colorectal Cancer Screening , Am J Gastroenterology 2017; 112:8011-6002. TEST DESCRIPTION: Composite algorithmic analysis of stool [...] (Joel Jacobo al, N Engl J Med 2014;370(14):4146-4550.) Cologuard may produce a false negative or false positive result (no colorectal cancer or precancerous polyp present at colonoscopy follow up). A negative Cologuard test result does not guarantee the absence of CRC or advanced adenoma (pre-cancer). The current Cologuard screening interval is every 3 years. (Australian Cancer Society and U.S. Multi-Society Task Force). Cologuard performance data in a 10,000 patient pivotal study using colonoscopy as the reference method can be accessed at the following location: www.[employer]/results. Additional description of the Cologuard test process, warnings and precautions can be found at www.[employer].com. Stool specimen (specimen) 01/19/2024 4:30 PM EDT 01/22/2024 2:01 PM EDT Faith Kern MD LAB MOLECULAR DIAGNOSTICS ORDERA AMNA Final Result [facility] (CLIA #:[id number]) [place] [address], * THINPREP TIS PAP AND HPV mRNA E6/E7 WITH REFLEX TO HPV 16,18/45 (03/06/2022 9:04 AM EDT) Clinical Information: SUSAN SIDDIQI [facility] COMMENT SEE COMMENT [facility] [...] along with historic and current clinical information. Comment: This Pap test has been evaluated with computer assisted technology. [facility] Switch Operator: SEE COMMENT [facility] Comment: ED, CT(ASCP) CT screening location: [place] [address] HPV nRNA E6/E7 Not Detected Not Detected [facility] Comment: Methodology: Oil Heater Operator-Mediated Amplification This assay detects E6/E7 viral messenger RNA (mRNA) from 14 high-risk HPV types (16,18,31,33,35,39,45,51,52,56,58,59,66,68). The analytical performance characteristics of this assay have been determined by [employer]. The modifications have not been cleared or approved by the FDA. This assay has been validated pursuant to the CLIA regulations and is used for clinical purposes. For additional information, please refer to http://education.Corso/faq/FSD813b6 (This link if provided for information/ educational [...] Smith CNM LAB PATHOLOGY ORDERABLES Final Result [facility] [address] from Last 3 Months or Most Recently Relevant to Health Maintenance Insurance [facility] , [address] [place] [address] Care Teams Steamer Gum Candy Relationship Specialty Start Date End Date Chio Elizabeth CNP [address] [place] [address] PCP - General Family Medicine 09/09/25 Kimberley Guadalupe PharmD [address] [place] [address] Pharmacist Internal Medicine 01/11/25
--- OUTSIDE RECORDS SUMMARY | 2025-11-09 15:55 | XMS_ITS | Encounter Summary ---
Author Organization [facility] Address 100 [facility] [address] [place] [address] Phone Care Team Providers Care Field Technical Specialist Name Role Phone Faith Kern MD Primary Care Provider [phone] Reason for Visit * Reason Comments Med Refill Encounter Details Date Type Department Care Team (Late st Contact Info) Description 11/28/2024 Refill [facility] [address] [place] [address] Nik Mckeon MD [address] [facility] [address] [place] [address] Social History Tobacco Use Types [...] on filedocumented in this encounter Care Teams Field Technical Specialist Relationship Specialty Start Date End Date Faith Kern MD [address] [place] [phone] PCP - General Family Medicine 07/24/21 documented as of this encounter
--- OUTSIDE RECORDS SUMMARY | 2025-11-09 15:55 | XMS_ITS | Encounter Summary ---
Author Organization [employer] Address 75 [facility] 7t [place] [address] Care Team Providers Care Corncob Pipe Supervisor Name Role Phone Faith Kern MD Primary Care Provider [phone] Kimberley Guadalupe PharmD Unavailable [phone] Chio Elizabeth CNP Primary Care Provider [phone] Reason for Visit * Reason Comments Med Refill Encounter Details Date Type Department Care Team (Late Contact Info) Description 11/25/2022 Refill [facility] MEDICINE [address] [place] [address] Faith Kern MD [address] [place] [address] Social History Tobacco Use Types Packs/Day Years [...] Encounters Date Type Department Care Team (Late Contact Info) Description 12/21/2025 10:45 AM EST Office Visit [facility] CHC MED & PEDS [address] [place] [address] Chio Elizabeth CNP [address] [place] [address] documented as of this encounter Goals Goal Patient Goal Type Associated Problems Recent Progress Patient-Stated? Author Blood Pressure < 140/90 Blood Pressure 147/75(2024 11:07 AM EDT) No Wesley Altman, PharmD Hemoglobin A1c < 7 Result Component 8.5( 11:10 AM EDT) No Wesley Altman, PharmD documented as of this encounter Visit Diagnoses Not on filedocumented in this encounter Care Teams Corncob Pipe Supervisor Relationship Specialty Start Date End Date Faith Kern MD [address] [place] [address] PCP - General Family Medicine 01/15/20 09/08/25 Chio Elizabeth CNP [address] [place] [address] PCP - General Family Medicine 09/09/25 Kimberley Guadalupe PharmD [address] [place] [address] Pharmacist Internal Medicine 01/11/25 documented as of this encounter
--- OUTSIDE RECORDS SUMMARY | 2025-11-09 15:55 | XMS_ITS | Encounter Summary ---
Author Organization [facility] Address 100 [facility] 200 [place] [address] Phone Care Team Providers Care Maintenance Manager Name Role Phone Faith Kern MD Primary Care Provider [phone] Reason for Visit * Reason Comments Med Refill Encounter Details Date Type Department Care Team (Late st Contact Info) Description 05/02/2024 Refill [facility] [address] [place] [address] Nik Mckeon MD [address] [facility] [address] [place] [address] Social History Tobacco Use Types [...] on filedocumented in this encounter Care Teams Maintenance Manager Relationship Specialty Start Date End Date Faith Kern MD [address] [place] [address] PCP - General Family Medicine 07/24/21 documented as of this encounter
--- OUTSIDE RECORDS SUMMARY | 2025-11-09 15:55 | XMS_ITS | Clinical Summary ---
Author Organization [facility] Address [address] [facility] [address] [place] [address] Phone Care Team Providers Care Manager Emergency Name Role Phone Faith Kern MD Primary Care Provider [phone] Allergies Active Allergy Reactions Criticality Noted Date Comments Lisinopril Hives 09/25/2021 Shellfish Protein-Containing Drug Products Other (see comments) 09/11/2010 Medications fenofibrate [...] Discontinued 08/02/2022, 12/03/2017, 03/18/2009 Insurance Care Teams Manager Emergency Relationship Specialty Start Date End Date Faith Kern MD [address] [place] [address] PCP - General Family Medicine 07/24/21
--- OUTSIDE RECORDS SUMMARY | 2025-11-09 15:55 | XMS_ITS | Clinical Summary ---
Author Organization [address] [place] [address] [place] [id number] Phone Care Team Providers Care Director Camp Name Role Phone Faith Kern MD Primary Care Provider [phone] Allergies Active Allergy Reactions Criticality Noted Date Comments Lisinopril 06/09/2025 Medications ketoconazole (NIZORAL) 2 % cream Apply topically 1 (one) time each day. 60 g 2 Active Surgical History Surgery Date Site/Laterality Comments SECTION PROCEDURE: IA DELIVERY ONLY COLONOSCOPY 01/26/13 PROCEDURE: IA COLONOSCOPY STOMA W/RMVL GABRIELLE POLYP/OTH LES SNARE; COMMENT: small polyp @35cm-> cold snare-> serrated hyperplastic ESOPHAGOGASTRODUODENOSCOPY 01/26/13 PROCEDURE: IA EGD TRANSORAL BIOPSY SINGLE/MULTIPLE; COMMENT: mosaic gastric mucosa- r/ h.pylori - hpylori positive BREAST BIOPSY PROCEDURE: BX BREAST; PERC NEEDLE CORE W/IMAG GUID; COMMENT: rt. breast bx. benign-10 yrs. ago BREAST SURGERY PROCEDURE: IA UNLISTED PROCEDURE BREAST; COMMENT: removed lump rt. [...] on file Sexual Orientation Not on file Plan of Treatment Health Maintenance Due Date Last Done Comments Diabetes: Annual GFR (Glomerular Filtration Rate) 1965 Diabetes: Annual Foot Exam 1975 Diabetes: Annual Retina Eye Exam 1975 Hepatitis A Vaccines (1 of 2 - Risk 2-dose series) 1984 Cervical Cancer Screening: Pap Smear 1986 RSV Immunization Adult Patients (1 - Risk 50-74 years 1-dose series) 2015 Breast Cancer Screening 11/28/2021 11/28/2019, 08/03 Diabetes: Annual Urine Albumin-Creatinine Ratio (uACR) 02/05/2024 HIV Screening 02/05/2024 Hepatitis C Screening 02/05/2024 Hypertension/CHF/CAD Annual BMP Blood Test 02/05/2024 Social Influencers of Health Screening 02/05/2024 Depression Screening 11/11/2024 COVID-19 Vaccine ( season) 2025 10/13/2021, 12/09/2020, 11/09/2020 Influenza Vaccine (#1) 2025 , 08/08/2023, 08/02/2022, [...] Relevant to Health Maintenance Insurance Care Teams Director Camp Relationship Specialty Start Date End Date Faith Kern MD [address] [place] [id number] PCP - General 12/27/23
== END 2025-11-09 11:51 | disposition home or self-care (01) ==
LOC: HO.CHCLDS 11:50
PROVIDERS: Visit Provider Internal Medicine Hypertension Specialist
DX: N18.4 Chronic kidney disease, stage 4 (severe) (principal)
CPT/HCPCS: 36415; 80048